=== PATIENT | female | born 1970 | race Caucasian/White ===

== ENCOUNTER 2018-03-11 18:28 | Outpatient (REF) | payer OTHER, SELFPAY ==
[2018-03-13 11:40] LABS: HBs Antibody, Quant 26.1 mIU/mL; Hepatitis B Surface Ab Positive
[2018-03-13 12:38] LABS: Measles IgG Antibody Negative; Mumps Antibody IgG Positive (Negative)
[2018-03-13 12:44] LABS: Varicella IgG Antibody Negative
[2018-03-13 12:46] LABS: Rubella IgG Ab (UVM) Positive
== END 2018-03-11 18:29 ==
LOC: NCHCN 18:28
PROVIDERS: PCP Physician Assistant Medical; Visit Provider Physician Assistant Medical
DX: Z11.59 Encounter for screening for other viral diseases (principal); Z01.84 Encounter for antibody response examination
CPT/HCPCS: 86706; 86787; 86735; 86762; 86765

== ENCOUNTER 2020-03-10 18:43 | Outpatient (REF) | payer OTHER, SELFPAY ==
[2020-03-10 21:30] LABS: Abs Immature Grans 0.02 10^3/uL (0.0-0.06); Absolute Basophil Count 0.02 10^3/uL (0.0-0.2); Absolute Eosinophil Count 0.13 10^3/uL (0.0-0.7); Absolute Lymphocyte Count 2.57 10^3/uL (1.2-3.4); Absolute Monocyte Count 0.52 10^3/uL (0.1-0.8); Absolute Neutrophil Count 4.51 10^3/uL (1.2-6.7); Basophils % 0.3; Eosinophils % 1.7; HCT 37.5 % (36.0-46.0); HGB 12.4 g/dL (11.2-15.7); Immature Grans % 0.3; Lymphocytes % 33.1; MCH 34.5 pg (27.0-33.0); MCHC 33.1 % (32.0-36.0); MCV 104.5 fL (80-95); MPV 10.8 fL (8.0-11.0); Monocytes % 6.7; Neutrophils % 57.9; Nucleated RBC 0 %; Platelet Count 140 10^3/uL (130-400); RBC 3.59 10^6/uL (3.93-5.22); RDW 11.2 % (11.7-14.6); RDW-SD 43.2 fL; WBC 7.77 10^3/uL (4.4-10.8)
[2020-03-10 21:55] LABS: ALT 103 U/L (14-59); AST 96 U/L (15-37); Albumin 4.1 g/dL (3.4-5.0); Alkaline Phosphatase 92 U/L (46-116); Anion Gap 11.2 mmol/L (3-11); BUN 18 mg/dL (7-18); Bilirubin, Total 0.7 mg/dL (0.2-1.0); CO2 25.8 mmol/L (21.0-32.0); CREATININE 0.56 mg/dL (0.55-1.02); Calcium 9.1 mg/dL (8.5-10.1); Chloride 102 mmol/L (98-107); Glucose 92 mg/dL (74-106); LDL CHOLESTEROL 111 mg/dL (<100); Potassium 3.7 mmol/L (3.5-5.1); Sodium 139 mmol/L (136-145); TSH (W/Ref FT4) 1.35 uIU/mL (0.36-3.74); Total Protein 7.1 g/dL (6.4-8.2)
== END 2020-03-10 19:03 ==
LOC: NCHCN 18:43
PROVIDERS: Physician Assistant; PCP Physician Assistant Medical; Visit Provider Nurse Practitioner Family
DX: R03.0 Elevated blood-pressure reading, without diagnosis of hypertension (principal); R94.5 Abnormal results of liver function studies
CPT/HCPCS: 80053; 83721; 84443; 85025

== ENCOUNTER 2022-03-10 18:52 | Outpatient (REF) | payer OTHER, SELFPAY ==
[2022-03-10 19:34] LABS: Abs Immature Grans 0.03 10^3/uL (0.0-0.06); Absolute Basophil Count 0.05 10^3/uL (0.0-0.2); Absolute Eosinophil Count 0.19 10^3/uL (0.0-0.7); Absolute Lymphocyte Count 2.79 10^3/uL (1.2-3.4); Absolute Monocyte Count 0.49 10^3/uL (0.1-0.8); Absolute Neutrophil Count 4.76 10^3/uL (1.2-6.7); Basophils % 0.6; Eosinophils % 2.3; HCT 42.1 % (36.0-46.0); Immature Grans % 0.4; Lymphocytes % 33.6; MCHC 33.3 % (32.0-36.0); MCV 102 fL (80-95); Monocytes % 5.9; Neutrophils % 57.2; Platelet Count 209 10^3/uL (130-400); RBC 4.12 10^6/uL (3.93-5.22); RDW 11.6 % (11.7-14.6); RDW-SD 44.1 fL; WBC 8.31 10^3/uL (4.4-10.8)
[2022-03-10 19:53] LABS: Iron 74 ug/dL (50-170); Total Iron Binding Capacity 448 ug/dL (250-450); Transferrin Sat 17 % (15-50)
[2022-03-10 20:03] LABS: ALT 75 U/L (14-59); AST 79 U/L (15-37); Alkaline Phosphatase 90 U/L (46-116); BUN 15 mg/dL (7-18); Bilirubin, Total 0.1 mg/dL (0.2-1.0); CREATININE 0.5 mg/dL (0.55-1.02); Chloride 104 mmol/L (98-107); Ferritin 123 ng/mL (8-252); Glucose 84 mg/dL (74-106); Potassium 4.1 mmol/L (3.5-5.1); Sodium 141 mmol/L (136-145); TSH (W/Ref FT4) 1.74 uIU/mL (0.36-3.74)
[2022-03-20 12:23] LABS: Testosterone, Free 0.58 ng/dL (<0.13-0.92); Testosterone, Total 40 ng/dL (8-60)
== END 2022-03-10 18:53 | disposition home or self-care (01) ==
LOC: NCHCN 18:52
PROVIDERS: PCP Physician Assistant Medical; Visit Provider Physician Assistant
DX: L65.9 Nonscarring hair loss, unspecified (principal); N95.1 Menopausal and female climacteric states
CPT/HCPCS: 80053; 84402; 84403; 82728; 83540; 83550; 84443; 85025

== ENCOUNTER 2022-06-23 16:25 | Outpatient (REF) | payer OTHER, SELFPAY ==
--- NOTE | 2022-06-23 15:45 | PAPFT_PTH ---
PATIENT: Sultana Nicholas LOC: [facility] WITH [facility]#:[id number] AGE/SX: 51/F ROOM: RE06/23/[address]: Khushboo Arreola : 1970 BED: DIS: 06/23/2022 SPEC #: [id number] RECD: 06/26/22 13:06 STATUS: DARRYL RELeigha #: [id number] FARZAD: 06/23/22 15:[address]: Khushboo Arreola DEPT: [facility] Cytology RECD BY: Toyin Ba ENTERED: 06/26/22 13:07 SP TYPE: PAPFT OTHR DR: Roshni Metcalf Tissues: 1 - CX/ENDOCX FOR PAP SMEARS Procedures: PAP THIN PREP/[facility] Screening HPV DNA PROBE Comments: [id number]
== END 2022-06-23 16:26 | disposition home or self-care (01) ==
LOC: NCHCN 16:25
PROVIDERS: PCP Physician Assistant Medical; Visit Provider Physician Assistant
DX: Z12.4 Encounter for screening for malignant neoplasm of cervix (principal); Z11.51 Encounter for screening for human papillomavirus (HPV)
CPT/HCPCS: 88142; 87624

== ENCOUNTER 2023-06-27 14:52 | Outpatient (REF) | payer OTHER, SELFPAY ==
--- OUTSIDE RECORDS SUMMARY | 2023-06-27 14:54 | XMS_ITS | Continuity of Care Document ---
Author Name Unknown Organization [facility] Address [address] [place] [address] Care Team Providers Care Textile Conservator Name Role Phone Khushboo Arreola Primary Care Physician [phone] Encounter [facility] Date(s): 10/30/22 - 10/30/[address] [address] Discharge Disposition: Home or Self Care Attending Physician: Khushboo Arreola PA-C Admitting Physician: Khushboo Arreola PA-C Referring Physician: Khushboo Arreola PA-C Allergies, Adverse Reactions, Alerts No Known Medication Allergies Immunizations Given and Recorded Vaccine Date Status Refusal Reason influenza virus vaccine, inactivated 05/07/12 Alvin rded influenza virus vaccine, inactivated 04/25/11 Alvin rded Social History Social History Type Response Sex Female Patient Care team information Care Team Personnel Name: Khushboo Arreola PA-C Position: PowerChart View Only Member Role: Primary Care Physician Address: Address: [address] [address] Care Team Related Persons Name: SIMA LOPEZ Address: Home Name: KERON CHENEY Address: Home
--- OUTSIDE RECORDS SUMMARY | 2023-06-27 14:54 | XMS_ITS | Continuity of Care Document ---
Author Name Unknown Organization [facility] Address [address] [place] [address] Care Team Providers Care Retail Financial Analyst Name Role Phone Khushboo Arreola Primary Care Physician [facility]26[facility]22 - 07/26/22 [facility] [address] [place] [address] Discharge Disposition: Home or Self Care Attending [...] Response Sex Female Patient Care team information Personnel Name: Khushboo Arreola PA-C Address: Address: [address] [address]- [place]
--- OUTSIDE RECORDS SUMMARY | 2023-06-27 14:54 | XMS_ITS | Continuity of Care Document ---
Author Name Unknown Organization [facility] Address [address] [place] [address] Care Team Providers Care Personnel Coordinator Name Role Phone Khushboo Arreola Primary Care Physician Encounter [facility] Date(s): 08/16/22 - 08/16/22 [facility] [address] [place] [address] Discharge Disposition: Home or Self Care Attending Physician: Khushboo Arreola PA-C Admitting Physician: Khushboo Arreola PA-C Referring Physician: Khushboo Arreola PA-C Allergies, Adverse Reactions, Alerts No Known Medication Allergies Immunizations Given and Recorded Vaccine Date Status Refusal Reason influenza virus vaccine, inactivated 05/07/12 Alvin rded influenza virus vaccine, inactivated 04/25/11 Alvin rded Social History Social History Type Response Sex Female Pulmonary function study * Hoa Porter D: PERFORM Event Display: Pulmonary Function Studies Authored Date: [id number] Patient Care team information Personnel Name: Khushboo Arreola PA-C Address: Address: [address] [address]- [place]
[2023-06-27 20:37] LABS: Abs Immature Grans 0.02 10^3/uL (0.0-0.06); Absolute Basophil Count 0.04 10^3/uL (0.0-0.2); Absolute Eosinophil Count 0.17 10^3/uL (0.0-0.7); Absolute Lymphocyte Count 2.47 10^3/uL (1.2-3.4); Absolute Monocyte Count 0.38 10^3/uL (0.1-0.8); Absolute Neutrophil Count 4.05 10^3/uL (1.2-6.7); Basophils % 0.6; Eosinophils % 2.4; HCT 36.1 % (36.0-46.0); HGB 12.1 g/dL (11.2-15.7); Immature Grans % 0.3; Lymphocytes % 34.6; MCH 33.3 pg (27.0-33.0); MCHC 33.5 % (32.0-36.0); MCV 99 fL (80-95); MPV 9.9 fL (8.0-11.0); Monocytes % 5.3; Neutrophils % 56.8; Platelet Count 213 10^3/uL (130-400); RBC 3.63 10^6/uL (3.93-5.22); RDW 13.3 % (11.7-14.6); RDW-SD 48.6 fL; WBC 7.13 10^3/uL (4.4-10.8)
[2023-06-27 21:12] LABS: ALT 48 U/L (14-59); AST 52 U/L (15-37); Albumin 3.9 g/dL (3.4-5.0); Alkaline Phosphatase 95 U/L (46-116); Anion Gap 10.6 mmol/L (3-11); BUN 14 mg/dL (7-18); Bilirubin, Total 0.2 mg/dL (0.2-1.0); CO2 29.4 mmol/L (21.0-32.0); CREATININE 0.7 mg/dL (0.55-1.02); Calcium 9.3 mg/dL (8.5-10.1); Chloride 102 mmol/L (98-107); Glucose 86 mg/dL (74-106); Potassium 4.1 mmol/L (3.5-5.1); Sodium 142 mmol/L (136-145); Total Protein 7.7 g/dL (6.4-8.2)
[2023-06-27 22:09] LABS: Folate 6.3 ng/mL (8.6-20.0); Vitamin B12 337 pg/mL (193-986)
== END 2023-06-27 14:53 | disposition home or self-care (01) ==
LOC: NCHCN 14:52
PROVIDERS: PCP Physician Assistant Medical; Visit Provider Physician Assistant
DX: I10 Essential (primary) hypertension (principal); D75.89 Other specified diseases of blood and blood-forming organs
CPT/HCPCS: 80053; 82607; 82746; 85025

== ENCOUNTER 2024-08-14 09:38 | Outpatient (REF) | payer OTHER, SELFPAY ==
--- OUTSIDE RECORDS SUMMARY | 2024-08-14 09:40 | XMS_ITS | Encounter Summary ---
Author Organization [facility] [place] [address] Care Team Providers Care Plant Changer Name Role Phone Khushboo Arreola Primary Care Provider [phone] Encounter Details Date Type Department Care Team (Latest Contact Info) Description 12/17/2023 Travel Social History Tobacco Use Types Packs/Day Years Used Date Smoking Tobacco: Every Day Cigarettes 0.5 42 Smokeless Tobacco: Never Alcohol Use Standard Drinks/Week Comments Yes 6 (1 standard drink = 0.6 oz pur e alcohol) Sex and Gender Information Value Date Recorded Sex Assigned at Not on file Gender Identity Not on file Sexual Orientation Not on file documented as of this encounter Plan of Treatment Not on file documented as of this encounter Visit Diagnoses Not on filedocumented in this encounter Care Teams Plant Changer Relationship Specialty Start Date End Date Khushboo Arreola PA [address] [place] [id number] PCP - General Family Medicine 03/20/22 documented as of this encounter
--- OUTSIDE RECORDS SUMMARY | 2024-08-14 09:40 | XMS_ITS | Encounter Summary ---
Author Organization [facility] [place] [address] Care Team Providers Care Endbander Name Role Phone Khushboo Arreola Primary Care Provider Encounter Details Date Type Department Care Team (Late st Contact Info) Description 10/26/2023 Orders Only [place] [address] Geovanna Espinal APRN [facility] [place] [address] Pre-procedural laboratory examination Social History Tobacco Use Types Packs/Day Years [...] documented as of this encounter Visit Diagnoses Diagnosis Pre-procedural laboratory examination documented in this encounter Care Teams Endbander Relationship Specialty Start Date End Date Khushboo Arreola PA [address] [place] [id number] PCP - General Family Medicine 03/20/22 documented as of this encounter
--- OUTSIDE RECORDS SUMMARY | 2024-08-14 09:40 | XMS_ITS | Encounter Summary ---
[place] [address] Care Team Providers Care School Principal Name Role Phone Khushboo Arreola Primary Care Provider [phone] Encounter Details Date Type Department Care Team (Late st Contact Info) Description 11/08/2023 Telephone [place] [address] Raimundo Joseph Social History Tobacco Use Types Packs/Day Years Used Date Smoking Tobacco: Every Day Cigarettes 0.5 42 Smokeless Tobacco: Never Alcohol Use Standard Drinks/Week Comments Yes 6 (1 standard drink = 0.6 oz pur e alcohol) Sex and Gender Information Value Date Recorded Sex Assigned at Not on file Gender Identity Not on file Sexual Orientation Not on file documented as of this encounter Miscellaneous Notes * Telephone Encounter - Raimundo Joseph - 11/08/2023 2:18 PM EDT Inbound/Outbound: Outbound Spoke to Patient/Left Message: Left message Notes: Outbound call to patient to schedule motility lab testing from referral. Left message askingfor callback to schedule. Return calls can be handled by: [facility] Solar Maintenance Technician documented in this encounter Plan of Treatment Not on file documented as of this encounter Visit Diagnoses Not on filedocumented in this encounter Care Teams School Principal Relationship Specialty Start Date End Date Khushboo Arreola PA [address] [place] [id number] PCP - General Family Medicine 03/20/22 documented as of this encounter
--- OUTSIDE RECORDS SUMMARY | 2024-08-14 09:40 | XMS_ITS | Encounter Summary ---
Author Organization [facility] [place] [address] Care Team Providers Care Collar Turner Name Role Phone Khushboo Arreola Primary Care Provider [phone] Encounter Details Date Type Department Care Team (Latest Contact Info) Description 10/24/2023 Travel Social History Tobacco Use Types Packs/Day [...] on filedocumented in this encounter Care Teams Collar Turner Relationship Specialty Start Date End Date Khushboo Arreola PA [address] [place] [id number] PCP - General Family Medicine 03/20/22 documented as of this encounter
--- OUTSIDE RECORDS SUMMARY | 2024-08-14 09:40 | XMS_ITS | Encounter Summary ---
[place] [address] Care Team Providers Care Concession Stand Attendant Name Role Phone Khushboo Arreola Primary Care Provider [phone] Reason for Visit * Auth/Cert (Routine) Specialty Diagnoses / Procedures Referred By Contac t Referred To Contact Diagnoses Chronic diarrhea Nausea Cyclical vomiting syndrome unrelated to migraine chronic vomiting and chronic diarrhea, previous OSH biopsy with active colitis, please biopsy throughout Procedures PRO UPPER GI ENDOSCOPY, DIAGNOSTIC PRO COLONOSCOPY, DIAGNOSTIC PRO UPPER GI ENDOSCOPY, BIOPSY PRO UP GI ENDOSCOPY, REMV TUMOR, SNARE PRO COLONOSCOPY, BIOPSY PRO COLONOSCOPY, REMV LESN, SNARE PRO ANES, COMBINED UPPER OR LOWER ENDOSCOPY EGD, UPPER GI ENDOSCOPY (WRVU 2.09) COLONOSCOPY, DIAGNOSTIC (WRVU 3.26) Aldair Jon MD [address] [place] [address] [facility] Referral ID Status Reason Start Date Expiration Date Visits Re quested Visits Authorized [id number] 1 1 Encounter Details Date Type Department Care Team (Late st Contact Info) Description 09/13/2023 8:15 AM EST - 09/13/2023 9:30 AM EST Surgery [place] [address] Aldair Jon MD [address] [place] [address] EGD WITH BIOPSY (WRVU 2.39) Social History Tobacco Use Types Packs/Day Years Used Date Smoking Tobacco: Every Day Cigarettes 0.3 42 Smokeless Tobacco: Never Tobacco Cessation:Ready to Q uit: Not Asked; Counseling Given: Not Answered Alcohol Use Standard Drinks/Week Comments Yes 6 (1 standard drink = 0.6 oz pur e alcohol) Sex and Gender Information Value Date Recorded Sex Assigned at Not on file Gender Identity Not on file Sexual Orientation Not on file documented as of this encounter Last Filed Vital Signs Vital Sign Reading Time Taken Comments Blood Pressure 152/92 09/13/2023 7:34 AM EST Pulse 107 09/13/2023 7:34 AM EST Temperature 36.6 ??C (97.8 ??F) 09/13/2023 7:34 AM ES T Respiratory Rate - - Oxygen Saturation 97% 09/13/2023 7:34 AM EST Inhaled Oxygen Concentration - - Weight 58.1 kg (128 lb) 09/13/2023 7:34 AM EST Height 154.9 cm (5' 1) 09/13/2023 7:34 AM EST Body Mass Index 24.19 09/13/2023 7:34 AM EST documented in this encounter Discharge Instructions * Discharge Instructions* Alyssa Mancia RN - 09/13/2023 9:56 AM EST Upper GI Endoscopy: What to Expect at Home Your Recovery You will be able to go home after your doctor or nurse checks to make sure you are not having any problems. You may have to stay overnight if you had treatment during the test. You may have a sore throat fora day or two after the test. This care sheet gives you a general idea about what to expect after the test. How can you care for yourself at home? Activity Rest when you feel tired. You can do your normal activities when it feels okay to do so. Diet Follow your doctor's directions for eating. Unless your doctor has told you not to, drink plenty of fluids. This helps to replace the fluids that were lost during the prep. Do not drink alcohol. Medicines Your doctor will tell you if and when you can restart your medicines. He or she will also give you instructions about taking any new medicines. If you take blood thinners, such as warfarin (Coumadin), clopidogrel (Plavix), or aspirin, be sure to talk to your doctor. He or she will tell you if and when to start taking those medicines again. Make sure that you understand exactly what your doctor wants you to do. If polyps were removed or a biopsy was done during the test, your doctor may tell you not to take aspirin or other anti-inflammatory medicines for a few days. These include ibuprofen (Advil, Motrin) and naproxen (Aleve). If you have a sore throat the day after the procedure, use an zein-jdz-gyviykt spray to numb your throat. Sucking on throat lozenges and gargling with warm salt water may also help relieve your symptoms. Other instructions For your safety, do not drive or operate machinery until the medicine wears off and you can think clearly. Your doctor may tell you not to drive or operate machinery until the day after your test. Do not sign legal documents or make major decisions until the medicine wears off and you can think clearly. The anesthesia can make it hard for you to fully understand what you are agreeing to. Additional Information for Sedation Patients For patients who received sedation: You may have received medications before and/or during your procedure which effects your judgement and reaction time. Do not drive, operate machinery, drink alcoholic beverages or make important decisions for 24 hours. Be careful on stairs as you may be unsteady on your feet. You may eat a regular diet as tolerated. Do not smoke if you are alone. IV site: Slight redness or tenderness is normal, you can use a warm compress if you would like. If tenderness and/or redness increase or if foul drainage occurs, please contact your Doctor. Please call [phone] before 8pm Mon-Fri with problems, questions or concerns. If you call after 8pm or on weekends, call the Hospital at [phone] and ask to speak to the Pricing Intern division toll wire chief and the gear cutting machine operator will contact that person for you. When should you call for help? Call [phone] anytime you think you may need emergency care. For example, call if: You passed out (lost consciousness). You pass maroon or bloody stools. You have trouble breathing. Call your doctor now or seek immediate medical care if: You have pain that does not get better after you take pain medicine. You are sick to your stomach or cannot drink fluids. You have new or worse belly pain. You have blood in your stools. You have a fever. You cannot pass stools or gas. Watch closely for changes in your health, and be sure to contact your doctor if you have any problems. Where can you learn more? [facility] View your After Visit Summary and more online at [email or web address] If you would like to provide feedback about your hospital experience, please call the Office of Patient and Family Relations at . If you have received this After Visit Summary in error, please immediately return it in person to the department, or notify the [facility] Privacy Office by calling toll free at between the hours of 8AM and 5PM to arrange for our retrieval of the documents at no cost to you. Content Version: 12.2 ?? 2438-3326 Treater. Care instructions adapted under license by [facility]. If you have questions about a medical condition or this instruction, always ask your healthcare professional. Treater disclaims any warranty or liability for your use of this information. Colonoscopy: What to Expect at Home Your Recovery Your doctor will talk to you about when you will need your next colonoscopy. Your doctor can help you decide how often you need to be checked. This will depend on the results of your test and your risk for colorectal cancer. After the test, you may be bloated or have gas pains. You may need to pass gas. If a biopsy was done or a polyp was removed, you may have streaks of blood in your stool (feces) for a few days. Problems such as heavy rectal bleeding may not occur until several weeks after the test. This isn't common. But it can happen after polyps are removed. This care sheet gives you a general idea about how long it will take for you to recover. But each person recovers at a different pace. Follow the steps below to get better as quickly as possible. How can you care for yourself at home? Activity Rest when you feel tired. You can do your normal activities when it feels okay to do so. Diet Follow your doctor's directions for eating. Unless your doctor has told you not to, drink plenty of fluids. This helps to replace the fluids that were lost during the colon prep. Do not drink alcohol. Medicines Your doctor will tell you if and when you can restart your medicines. He or she will also give you instructions about taking any new medicines. If you take blood thinners, such as warfarin (Coumadin), clopidogrel (Plavix), or aspirin, be sure to talk to your doctor. He or she will tell you if and when to start taking those medicines again. Make sure that you understand exactly what your doctor wants you to do. If polyps were removed or a biopsy was done during the test, your doctor may tell you not to take aspirin or other anti-inflammatory medicines for a few days. These include ibuprofen (Advil, Motrin) and naproxen (Aleve). Other instructions For your safety, do not drive or operate machinery until the medicine wears off and you can think clearly. Your doctor may tell you not to drive or operate machinery until the day after your test. Do not sign legal documents or make major decisions until the medicine wears off and you can think clearly. The anesthesia can make it hard for you to fully understand what you are agreeing to. Additional Information for Sedation Patients For patients who received sedation: You may have received medications before and/or during your procedure which effects your judgement and reaction time. Do not drive, operate machinery, drink alcoholic beverages or make important decisions for 24 hours. Be careful on stairs as you may be unsteady on your feet. You may eat a regular diet as tolerated. Do not smoke if you are alone. IV site: Slight redness or tenderness is normal, you can use a warm compress if you would like. If tenderness and/or redness increase or if foul drainage occurs, please contact your Doctor. Please call [phone] before 8pm Mon-Fri with problems, questions or concerns. If you call after 8pm or on weekends, call the Hospital at [phone] and ask to speak to the Pricing Intern division toll wire chief and the gear cutting machine operator will contact that person for you. When should you call for help? Call [phone] anytime you think you may need emergency care. For example, call if: You passed out (lost consciousness). You pass maroon or bloody stools. You have trouble breathing. Call your doctor now or seek immediate medical care if: You have pain that does not get better after you take pain medicine. You are sick to your stomach or cannot drink fluids. You have new or worse belly pain. You have blood in your stools. You have a fever. You cannot pass stools or gas. Watch closely for changes in your health, and be sure to contact your doctor if you have any problems. Where can you learn more? [facility] View your After Visit Summary and more online at [email or web address] If you would like to provide feedback about your hospital experience, please call the Office of Patient and Family Relations at . If you have received this After Visit Summary in error, please immediately return it in person to the department, or notify the [facility] Privacy Office by calling toll free at between the hours of 8AM and 5PM to arrange for our retrieval of the documents at no cost to you. Content Version: 12.2 ?? 5820-9895 Treater. Care instructions adapted under license by [facility]. If you have questions about a medical condition or this instruction, always ask your healthcare professional. Treater disclaims any warranty or liability for your use of this information. documented in this encounter Medications at Time of Discharge Medication Sig Dispensed Refills Start Date End Date LISINOPRIL ORAL 0 Refill(s) 07/31/2023 buPROPion XL (Wellbutrin XL) 150 mg XL 24 hr tablet TAKE 1 TABLET BY MOUTH EVERY MORNING TAKE WITH 300 MG TABLET. 03/28/2023 colestipoL (Colestid) 1 gram tablet 07/25/2023 Flovent HFA 110 mcg/actuation HFA Aerosol Inhaler 04/06/2023 pantoprazole EC (Protonix) 40 mg Tablet, Delayed Release (E.C.) TAKE 1 TABLET BY MOUTH EVERY DAY 30 MINUTES BEFORE SUPPER 04/11/2022 calcium polycarbophil (FIBERCON ORAL) Take by mouth daily. documented as of this encounter H&P Notes * Aldair Jon MD - 09/13/2023 7:57 AM EST Gastroenterology and Hepatology Pre-Procedure History and Physical Exam Procedure: EGD / colo Indication: N/V, diarrhea, ?hx of colitis (prior colo in [place]). Recent normal GES, CTA, and Cte. EXAM: HEENT: Airway examined, oropharynx clear Mallampati Score: per anesthesia LUNGS: Clear to auscultation HEART: Regular rate and rhythm, normal S1, S2 ABDOMEN: Normal bowel sounds, soft, non tender, non distended A/P: Proceed with the planned endoscopic procedure. ASA 3 - Patient with moderate systemic disease with functional limitations Sedation Plan: anesthesia Risks and benefits of the procedure explained to the patient. Consent form signed and included in the patient's chart. Aldair Jon MD Advanced Endoscopy Fellow Gastroenterology & Hepatology documented in this encounter Plan of Treatment Not on file documented as of this encounter Procedures Procedure Name Priority Date/Time Associated Diagnosis Comments SPECIMEN TO PATHOLOGY Routine 09/13/2023 9:52 AM EST SPECIMEN TO PATHOLOGY Routine 09/13/2023 9:52 AM EST SPECIMEN TO PATHOLOGY Routine 09/13/2023 9:52 AM EST SPECIMEN TO PATHOLOGY Routine 09/13/2023 9:52 AM EST SPECIMEN TO PATHOLOGY Routine 09/13/2023 9:52 AM EST SPECIMEN TO PATHOLOGY Routine 09/13/2023 9:03 AM EST SPECIMEN TO PATHOLOGY Routine 09/13/2023 9:03 AM EST SPECIMEN TO PATHOLOGY Routine 09/13/2023 9:03 AM EST SPECIMEN TO PATHOLOGY Routine 09/13/2023 9:03 AM EST SPECIMEN TO PATHOLOGY Routine 09/13/2023 9:03 AM EST SURGICAL PATHOLOGY REPORT Routine 09/13/2023 8:56 AM EST UPPER GI ENDOSCOPY Routine 09/13/2023 8: 37 AM EST COLONOSCOPY Routine 09/13/2023 8:37 AM EST Colonoscpy, Flex, W/Dir Submuc Inject ([id number]) 09/13/2023 8:36 AM EST Diarrhea, unspecified type Chronic nausea Cyclic vomiting syndrome Tenesmus Constipation, unspecified constipation type Irritable bowel syndrome with diarrhea Bloating BRBPR (bright red blood per rectum) Colon polyposis Smoking Nausea and vomiting, unspecified vomiting type Early satiety Colonoscopy, Diagnostic ([id number]) 09/13/2023 8:36 AM EST Diarrhea, unspecified type Chronic nausea Cyclic vomiting syndrome [place] Constipation, unspecified constipation type Irritable bowel syndrome with diarrhea Bloating BRBPR (bright red blood per rectum) Colon polyposis Smoking Nausea and vomiting, unspecified vomiting type Early satiety Upper Gi Endoscopy, Biopsy ([id number]) 09/13/2023 8:36 AM EST Diarrhea, unspecified type Chronic nausea Cyclic vomiting syndrome [place] Constipation, unspecified constipation type Irritable bowel syndrome with diarrhea Bloating BRBPR (bright red blood per rectum) Colon polyposis Smoking Nausea and vomiting, unspecified vomiting type Early satiety documented in this encounter Results * Specimen to Pathology (09/13/2023 9:52 AM EST) AP Specimen 09/13/2023 9:52 AM EST 09/13/2023 9:52 AM EST Narrative [facility] - 09/13/2023 9:52 AM EST Specimen requisition ordered. ??Separate Pathology report to follow Aldair Jon MD PATHOLOGY/CYTOLOGY ORDERABLES Performing Organization Address City/State/[facility] [place] [address] * Specimen to Pathology (09/13/2023 9:52 AM EST) AP Specimen 09/13/2023 9:52 AM EST 09/13/2023 9:52 AM EST Narrative [facility] - 09/13/2023 9:52 AM EST Specimen requisition ordered. ??Separate Pathology report to follow Aldair Jon MD PATHOLOGY/CYTOLOGY ORDERABLES [facility] [place] [address] * Specimen to Pathology (09/13/2023 9:52 AM EST) AP Specimen 09/13/2023 9:52 AM EST 09/13/2023 9:52 AM EST Narrative [facility] - 09/13/2023 9:52 AM EST Specimen requisition ordered. ??Separate Pathology report to follow Aldair Jon MD PATHOLOGY/CYTOLOGY ORDERABLES Performing Organization Address City/[facility]/ZIP Co de Phone Number [facility] [place] [address] * Specimen to Pathology (09/13/2023 9:52 AM EST) AP Specimen 09/13/2023 9:52 AM EST 09/13/2023 9:52 AM EST Narrative [facility] - 09/13/2023 9:52 AM EST Specimen requisition ordered. ??Separate Pathology report to follow Aldair Jon MD PATHOLOGY/CYTOLOGY ORDERABLES Performing Organization Address City/[facility] Co de Phone Number [facility] [place] [address] * Specimen to Pathology (09/13/2023 9:52 AM EST) AP Specimen 09/13/2023 9:52 AM EST 09/13/2023 9:52 AM EST Narrative [facility] - 09/13/2023 9:52 AM EST Specimen requisition ordered. ??Separate Pathology report to follow Aldair Jon MD PATHOLOGY/CYTOLOGY ORDERABLES Performing Organization Address City/[facility]/ZIP Co de Phone Number [facility] [place] [address] * Specimen to Pathology (09/13/2023 9:03 AM EST) AP Specimen 09/13/2023 9:03 AM EST 09/13/2023 9:03 AM EST Narrative [facility] - 09/13/2023 9:03 AM EST Specimen requisition ordered. ??Separate Pathology report to follow Aldair Jon MD PATHOLOGY/CYTOLOGY ORDERABLES [facility] [place] [address] * Specimen to Pathology (09/13/2023 9:03 AM EST) AP Specimen 09/13/2023 9:03 AM EST 09/13/2023 9:03 AM EST Narrative [facility] - 09/13/2023 9:03 AM EST Specimen requisition ordered. ??Separate Pathology report to follow Aldair Jon MD PATHOLOGY/[place] [address] * Specimen to Pathology (09/13/2023 9:03 AM EST) AP Specimen 09/13/2023 9:03 AM EST 09/13/2023 9:03 AM EST Narrative [facility] - 09/13/2023 9:03 AM EST Specimen requisition ordered. ??Separate Pathology report to follow Aldair Jon MD PATHOLOGY/CYTOLOGY ORDERABLES Performing Organization Address City/[facility]/ZIP Co de Phone Number [facility] [place] [address] * Specimen to Pathology (09/13/2023 9:03 AM EST) AP Specimen 09/13/2023 9:03 AM EST 09/13/2023 9:03 AM EST Narrative [facility] - 09/13/2023 9:03 AM EST Specimen requisition ordered. ??Separate Pathology report to follow Aldair Jon MD PATHOLOGY/[place] [address] * Specimen to Pathology (09/13/2023 9:03 AM EST) AP Specimen 09/13/2023 9:03 AM EST 09/13/2023 9:03 AM EST Narrative [facility] - 09/13/2023 9:03 AM EST Specimen requisition ordered. ??Separate Pathology report to follow Aldair Jon MD PATHOLOGY/CYTOLOGY ORDERABLES [facility] [place] [address] * Surgical Pathology Report (09/13/2023 8:56 AM EST) Final Diagnosis [id number] ? Location: 4T; EA07; A The signing pathologist has (i) examined the relevant preparation(s) for the specimen(s) and (ii) rendered or confirmed the diagnosis(es). . ?Surgical Pathology DIAGNOSIS A - Duodenum r/o celiac, biopsy (Multiple): - ??Duodenal mucosa within normal limits, including preserved villous architecture. B - Duodenal bulb polypoid lesion, biopsy (Multiple): - ??Duodenal mucosa with foveolar metaplasia and Belkis's gland hyperplasia consistent with peptic-type duodenitis. C - Gastric r/o H.pylori, biopsy (Multiple): - ??Gastric antral and fundic gland mucosa with nonspecific reactive gastropathy. - H. pylori organisms are not seen. D - Distal esophagus r/o EoE, biopsy (Multiple): - ??Esophageal squamous mucosa with acute (neutrophilic) and ?? chronic ??inflammation, and fibrinopurulent ??material ??consistent with ulceration. - ??Squamocolumnar junctional mucosa (fundic-type) with mild chronic inflammation. - There is no evidence of intestinal metaplasia. E - Mid esophagus r/o EoE, biopsy (Multiple): - ??Esophageal squamous mucosa, within normal limits. F - Polyp CE, excision: - Colonic mucosa with prominent lymphoid follicles. - ??Multiple levels examined. G - Random colon r/o microscopic colitis, biopsy (Multiple): - Colonic mucosa with patchy mild architectural disarray, ?consistent ??with a resolving colitis. H - Polyp AC, excision: - ??Fragments of tubular adenoma. I - Polyp HF 12 mm, excision (Multiple): - ??Fragments of tubular adenoma. J - Polyp HF 15 mm, excision (Multiple): - ??Fragments of tubular adenoma. CR-PX Electronically signed by: ?William LONDONO PhD, Ashley Verified: ??09/25/2023 15:03 ??Pathologist Performed at: ??[facility] Dept. of Pathology, [place] [address] Flexographic Press Operator: Milton Victoria MD, AP, ??CLIA Certificate: [id number] ADDITIONAL STUDIES Special stains are performed. ?? Block ? Stain ?Result ( Positive / Negative ) ??D1 ?GMS ? Negative SPECIMEN(S) SUBMITTED A - duodenum r/o celiac, biopsy (Multiple) . SPECIMEN(S) SUBMITTED B - duodenal bulb polypoid lesion, biopsy (Multiple) C - gastric r/o H.pylori, biopsy (Multiple) D - distal esophagus r/o EoE, biopsy (Multiple) E - mid esophagus r/o EoE, biopsy (Multiple) F - polyp CE, excision (1) G - random colon r/o microscopic colitis, biopsy (Multiple) H - polyp AC, excision (1) I - polyp HF 12 mm, excision (Multiple) J - polyp HF 15 mm, excision (Multiple) CLINICAL INFORMATION EGD N/V, diarrhea,? ??History of colitis (prior [place] and [place]). ??Recent normal GES, CTA and Cte. SPECIMEN PROCESSING A - Labeled/Fixative: Duodenum rule out celiac, formalin. Quantity/Size: Four, 0.2-0.5 cm greatest dimension. Tissue Description: Soft, norwood-pink tissues. Sections/Processi ng: Submitted in toto ??in 1 cassette labeled A1. B - Labeled/Fixative: Duodenal bulb polypoid lesion, formalin. Quantity/Size: Single, 0.6 cm greatest dimension. Tissue Description: Soft, norwood-pink tissue. Sections/Processi ng: Submitted in toto ??in 1 cassette labeled B1. C - Labeled/Fixative: Gastric rule out H. pylori, formalin. Quantity/Size: Five, 0.3-0.6 cm in greatest dimension. Tissue Description: Soft, norwood-pink tissues. Sections/Processi ng: Submitted in toto ??in 1 cassette labeled C1. D - Labeled/Fixative: Distal esophagus rule out EOE, formalin. Quantity/Size: Five, 0.3-0.6 cm greatest dimension. Tissue Description: Soft, norwood-pink tissues. Sections/Processi ng: Submitted in toto ??in 1 cassette labeled D1. E - Labeled/Fixative: Mid esophagus rule out EOE, formalin. Quantity/Size: Four, 0.3-0.8 cm greatest dimension. Tissue Description: Soft, pale-norwood tissues. Sections/Processi ng: Submitted in toto ??in 1 cassette labeled E1. F - Labeled/Fixative: Polyp CE, formalin. Quantity/Size: Three, 0.4-0.7 cm greatest dimension. Tissue Description: Soft, norwood-pink tissues. Sections/Processi ng: Submitted in toto ??in 1 cassette labeled F1. G - Labeled/Fixative: Random colon rule out microscopic colitis, formalin. Quantity/Size: Five, 0.4-0.8 cm greatest dimension. Tissue Description: Soft, norwood-pink tissues. Sections/Processi ng: . SPECIMEN PROCESSING Submitted in toto ??in 1 cassette labeled G1. H - Labeled/Fixative: Polyp AC, formalin. Quantity/Size: Three, 0.4-0.6 cm greatest dimension. Tissue Description: Soft, norwood-pink tissues. Sections/Processi ng: Submitted in toto ??in 1 cassette labeled H1. I - Labeled/Fixative: Polyp HF 12 mm, formalin. Quantity/Size: Seven, 0.3-0.5 cm greatest dimension. Tissue Description: Soft, norwood-pink tissues. Sections/Processi ng: Submitted in toto ??in 1 cassette labeled I1. J - Labeled/Fixative: Polyp HF 15 mm, formalin. Quantity/Size: Fragments, fragments 1.0 cm in greatest dimension with a 0.6 x 0.5 x 0.2 cm aggregate. Tissue Description: Soft, norwood-pink tissues. Sections/Processi ng: Submitted in toto ??in 4 cassettes as follows: ?J1: ??Largest portion of mucosa, inked and bisected. ?J2-J3: ??Fragments of mucosa, 5 per cassette ?J4: ??Remaining fragments ??krd 09/25/2023 3:03 PM EST [facility] GI Biopsy 09/13/2023 8:56 AM EST 09/13/2023 8:56 AM EST GI Biopsy 09/13/2023 8:56 AM EST 09/13/2023 8:56 AM EST GI Biopsy 09/13/2023 8:56 AM EST 09/13/2023 8:56 AM EST GI Biopsy 09/13/2023 8:56 AM EST 09/13/2023 8:56 AM EST GI Biopsy 09/13/2023 8:56 AM EST 09/13/2023 8:56 AM EST GI Biopsy 09/13/2023 8:56 AM EST 09/13/2023 8:56 AM EST GI Biopsy 09/13/2023 8:56 AM EST 09/13/2023 8:56 AM EST GI Biopsy 09/13/2023 8:56 AM EST 09/13/2023 8:56 AM EST GI Biopsy 09/13/2023 8:56 AM EST 09/13/2023 8:56 AM EST GI Biopsy 09/13/2023 8:56 AM EST 09/13/2023 8:56 AM EST Aldair Jon MD PATHOLOGY/CYTOLOGY ORDERABLES Performing Organization Address [facility] Co de Phone Number [facility] [place] [address] [facility] [place] [address] * UPPER GI ENDOSCOPY (09/13/2023 8:37 AM EST) UPPER GI ENDOSCOPY [facility] Endoscopy Procedure Date: 09/13/2023 8:37 AM ? Patient Name: Sultana Nicholas ? Date of : 1970 ? Age: 52 ? Order #: [id number] ? Instrument Name: [id number] ? Procedure: ? Upper GI endoscopy Indications: ? Dyspepsia, Nausea with vomiting Providers: ? Case Martin ? BEATA Oliver, Bridgett Gilmore MD: ?Carina Ward Medicines: ? Monitored Anesthesia Care Complications: ? No immediate complications. Procedure: ? Pre-Anesthesia Assessment: ? - Prior to the procedure, a History ? and Physical was performed, and ? patient medications, allergies and ? sensitivities were reviewed. The ? patient's tolerance of previous ? anesthesia was reviewed. ? - The risks and benefits of the ? procedure and the sedation options ? and risks were discussed with the ? patient. All questions were ? answered and informed consent was ? obtained. ? - Patient identification and ? proposed procedure were verified ? prior to the procedure by the ? physician, the nurse, the ? leather fitter and the master sonar technician. The ? procedure was verified in the ? pre-procedure area in the endoscopy ? suite. ? - Pre-procedure physical ? examination revealed no ? contraindications to sedation. ? - ASA Grade Assessment: III - A ? patient with severe systemic ? disease. ? - After reviewing the risks and ? benefits, the patient was deemed in ? satisfactory condition to undergo ? the procedure. ? - Monitored anesthesia care under ? the supervision of a PLANT PATHOLOGIST was ? determined to be medically ? necessary for this procedure based ? on severe comorbidity (greater than ? ASA Grade II) and patient's history ? of problems with anesthesia. ? The procedure, indications, ? benefits, risks and alternatives ? were explained to the patient. ? Specifically discussed were ? potential complications including, ? but not limited to, bleeding, ? perforation, infection, missing a ? cancer, and adverse medication ? reactions. The Endoscope was ? introduced through the mouth, and ? advanced to the third part of ? duodenum The upper GI endoscopy was ? accomplished without difficulty. ? The patient tolerated the procedure ? well. ? Findings: ? The Z-line was regular and was found 35 cm from the ? incisors. ? A 2 cm hiatal hernia was present. ? A widely patent Schatzki ring was found at the ? gastroesophageal junction. ? The esophagus was otherwise normal. Biopsies were ? obtained from the proximal and distal esophagus with ? cold forceps for histology to rule out eosinophilic ? esophagitis. ? The stomach was normal. Biopsies were taken with a ? cold forceps for Helicobacter pylori testing. ? A single 3 mm sessile polyp was found in the duodenal ? bulb. Biopsies were taken with a cold forceps for ? histology. ? The duodenum was otherwise normal. Biopsies for ? histology were taken with a cold forceps for ? evaluation of celiac disease. ? Moderate Sedation: ? Not applicable - See Anesthesia documentation Impression: ?- Small hiatal hernia. ? - Widely patent Schatzki ring. ? - Normal esophagus biopsied to rule ? out EoE. ? - Normal stomach biopsied for H ? pylori. ? - A single diminutive duodenal ? polypoid lesion. Biopsied. ? - Normal duodenum biopsied for ? celiac. Recommendation: ?- Await pathology results. ? - Proceed to colonoscopy. ? Attending Participation: ? I personally performed the entire procedure. ? Aldair Jon, 09/13/2023 10:08:18 AM Number of Addenda: 0 Note Initiated On: 09/13/2023 8:37 AM PROVATION 09/13/2023 8:37 AM EST Khushboo VINES GENERAL SURGICAL ORD ERABLES PROVATION * COLONOSCOPY (09/13/2023 8:37 AM EST) COLONOSCOPY [facility] Endoscopy Procedure Date: 09/13/2023 8:37 AM ? Patient Name: Sultana Nicholas ? Date of : 1970 ? Age: 52 ? Order #: [id number] ? Instrument Name: [id number] ? Procedure: ? Colonoscopy Indications: ? Diarrhea, question of colitis on ? last exam. Recent normal fecal ? calprotectin. Normal CT ? enterography. Providers: ? Case Martin ? BEATA Oliver, Bridgett Tariq Referring MD: ?Khushboo Woodruff, Khushboo Arreola, ? Carinarafa Negron Medicines: ? Monitored Anesthesia Care Complications: ? No immediate complications. Procedure: ? Pre-Anesthesia Assessment: ? - Prior to the procedure, a History ? and Physical was performed, and ? patient medications, allergies and ? sensitivities were reviewed. The ? patient's tolerance of previous ? anesthesia was reviewed. ? - The risks and benefits of the ? procedure and the sedation options ? and risks were discussed with the ? patient. All questions were ? answered and informed consent was ? obtained. ? - Patient identification and ? proposed procedure were verified ? prior to the procedure by the ? physician, the nurse, the ? leather fitter and the master sonar technician. The ? procedure was verified in the ? pre-procedure area in the endoscopy ? suite. ? - Pre-procedure physical ? examination revealed no ? contraindications to sedation. ? - ASA Grade Assessment: III - A ? patient with severe systemic ? disease. ? - After reviewing the risks and ? benefits, the patient was deemed in ? satisfactory condition to undergo ? the procedure. ? - Monitored anesthesia care under ? the supervision of a PLANT PATHOLOGIST was ? determined to be medically ? necessary for this procedure based ? on severe comorbidity (greater than ? ASA Grade II) and patient's history ? of problems with anesthesia. ? The procedure, indications, ? benefits, risks and alternatives ? were explained to the patient. ? Specifically discussed were ? potential complications including, ? but not limited to, bleeding, ? perforation, infection, missing a ? cancer, and adverse medication ? reactions. The patient was placed ? in the left lateral decubitus ? position, and a digital rectal exam ? was performed. The Colonoscope was ? inserted in the anus and under ? direct visualization, advanced to ? the terminal ileum. Careful ? inspection was made as the ? colonoscope was withdrawn. The ? colonoscopy was performed without ? difficulty. The patient tolerated ? the procedure well. The quality of ? the bowel preparation was evaluated ? using the BBPS (Pledger Bowel ? Preparation Scale) with scores of: ? Right Colon = 3 (entire mucosa seen ? well with no residual staining, ? small fragments of stool or opaque ? liquid), Transverse Colon = 2 ? (minor amount of residual staining, ? small fragments of stool and/or ? opaque liquid, but mucosa seen ? well) and Left Colon = 2 (minor ? amount of residual staining, small ? fragments of stool and/or opaque ? liquid, but mucosa seen well). The ? total BBPS score equals 7. The ? quality of the bowel preparation ? was good. Scope withdrawal time was ? 35 minutes. ? Findings: ? The terminal ileum appeared normal. ? The colon (entire examined portion) appeared normal. ? Biopsies for histology were taken with a cold forceps ? for evaluation of microscopic colitis. ? Two Guerda classification IIa (superficial, elevated) ? polyps were found in the cecum. The polyps were 2 to ? 3 mm in size. These polyps were removed with a cold ? snare. Resection and retrieval were complete. ? A 3 mm polyp was found in the ascending colon. The ? polyp was Guerda classification IIa (superficial, ? elevated). The polyp was removed with a cold snare. ? Resection and retrieval were complete. ? A 12 mm polyp was found in the hepatic flexure. The ? polyp was Guerda classification IIa (superficial, ? elevated). The polyp was first injected with Eleview ? lifting agent. The polyp borders were delinated using ? high definition white light. The polyp was then ? resected using a cold snare in a piecemeal fashion. ? Resection and retrieval were complete. ? An 11 mm polyp was found in the hepatic flexure. The ? polyp was Guerda classification IIa (superficial, ? elevated). The polyp was first injected with Eleview ? lifting agent. The polyp borders were delinated using ? high definition white light. The polyp was then ? resected using a cold snare in a piecemeal fashion. A ? few small areas of polyp were unable to be resected ? using the snare. These were removed using a cold ? forceps. Resection and retrieval were complete. ? The exam was otherwise without abnormality on direct ? and retroflexion views. ? Moderate Sedation: ? Not applicable - See Anesthesia documentation Impression: ?- No overt ileitis or colitis. ? Non-targeted colon biopsies ? obtained to rule out microscopic ? colitis. ? - Multiple polyps in the right ? colon. Two larger lesions resected ? via piecemeal cold EMR. Three ? smaller lesions resected via ? en-bloc cold snare resection. Recommendation: ?- Patient has a contact number ? available for emergencies. The ? signs and symptoms of potential ? delayed complications were ? discussed with the patient. Return ? to normal activities tomorrow. ? Written discharge instructions were ? provided to the patient. ? - Await biopsy and polyp pathology ? results. ? - Repeat colonoscopy in 3 years ? under anesthesia for surveillance. ? Attending Participation: ? I personally performed the entire procedure. ? Aldair Jon, 09/13/2023 10:06:37 AM Number of Addenda: 0 Note Initiated On: 09/13/2023 8:37 AM PROVATION 09/13/2023 8:37 AM EST Khushboo VINES GENERAL SURGICAL ORD ERABLES PROVATION documented in this encounter Visit Diagnoses Diagnosis Diarrhea, unspecified type Chronic nausea Nausea alone Cyclic vomiting syndrome Persistent vomiting Tenesmus Other symptoms involving digestive system Constipation, unspecified constipation type Irritable bowel syndrome with diarrhea Irritable bowel syndrome Bloating Flatulence, eructation, and gas pain BRBPR (bright red blood per rectum) Hemorrhage of rectum and anus Colon polyposis Benign neoplasm of colon Smoking Tobacco use disorder Nausea and vomiting, unspecified vomiting type Early satiety documented in this encounter Administered Medications Inactive Administered Medications - up to 3 most recent administrations Medication Order MAR Action Action Date Dose Rate Site ipratropium-albuteroL (Duoneb) 0.5 mg-3 mg(2.5 mg base)/3 mL nebulizer solution 3 mL 3 mL, Nebulization, ONCE, 1 dose, On Rox 09/13/23 at 0815, Inhale via small volume nebulizer, Day of Surgery (Day of Procedure), Routine Given 09/13/2023 8:07 AM EST 3 mLs lactated ringers infusion 100 mL/hr, Intravenous, CONTINUOUS, Starting on Rox 09/13/23 at 0800, Until Rox 09/13/23 at 1032, Endoscopy (Day of Procedure) Restarted 09/13/2023 8:36 AM EST New Bag 09/13/2023 7:49 AM EST 100 mL/hr 100 mL/hr documented in this encounter Active and Recently Administered Medications Times are shown in EST. Scheduled Medication Order 09/11/2023 09/12/2023 09/13/2023 ipratropium-albuteroL (Duoneb) 0.5 mg-3 mg(2.5 mg base)/3 mL nebulizer solution 3 mL (COMPLETED) 3 mL, Nebulization, ONCE, 1 dose, On Rox 09/13/23 at 0815, Inhale via small volume nebulizer, Day of Surgery (Day of Procedure), Routine 0807 (Given - Provid er: Rose Andre RN) Continuous Medication Order 09/11/2023 09/12/2023 09/13/2023 lactated ringers infusion (CANCELED) 100 mL/hr, Intravenous, CONTINUOUS, Starting on Rox 09/13/23 at 0800, Until Rox 09/13/23 at 1032, Endoscopy (Day of Procedure) 0749 (New Bag - Prov ider: Rose Andre RN)0835 (Paused - Provider: Onofre Ren CRNA - Comment: Switch to gravity)0836 (Restarted - Provider: Onofre Ren CRNA)0950 (Anesthesia Volume Adjustment - Provider: Onofre Ren CRNA) documented in this encounter Care Teams Concession Stand Attendant Relationship Specialty Start Date End Date Khushboo Arreola PA [address] [place] [id number] PCP - General Family Medicine 03/20/22 documented as of this encounter
--- OUTSIDE RECORDS SUMMARY | 2024-08-14 09:40 | XMS_ITS | Encounter Summary ---
[place] [address] Care Team Providers Care Foot Miter Operator Name Role Phone Khushboo Arreola Primary Care Provider Encounter Details Date Type Department Care Team (Late st Contact Info) Description 10/25/2023 Notes [place] [id number] Juanita Grande RN Social History Tobacco Use Types Packs/Day Years Used Date Smoking Tobacco: Every Day Cigarettes 0.5 42 Smokeless Tobacco: Never Alcohol Use Standard Drinks/Week Comments Yes 6 (1 standard drink = 0.6 oz pur e alcohol) Sex and Gender Information Value Date Recorded Sex Assigned at Not on file Gender Identity Not on file Sexual Orientation Not on file documented as of this encounter Progress Notes * Juanita Grande RN - 10/25/2023 11:28 AM EDT MRI brain pre-cert ([facility]): Service Order: [id number] Initiated Date: 10/25/2023 Case Activity: Submission in Progress Case Status: Pending * Juanita Grande RN - 10/25/2023 11:28 AM EDT PA approval forwarded to [facility] rec for scanning, and to [facility] radiology. documented in this encounter Plan of Treatment Not on file documented as of this encounter Visit Diagnoses Not on filedocumented in this encounter Care Teams Foot Miter Operator Relationship Specialty Start Date End Date Khushboo Arreola PA [address] [place] [id number] PCP - General Family Medicine 03/20/22 documented as of this encounter
--- OUTSIDE RECORDS SUMMARY | 2024-08-14 09:40 | XMS_ITS | Encounter Summary ---
[place] [address] Care Team Providers Care Breast Surgeon Name Role Phone Khushboo Arreola Primary Care Provider [phone] Reason for Visit * Auth/Cert (Routine) Specialty [...] 3.26) Aldair Jon MD [address] [place] [address] [facility] Referral ID Status Reason Start Date Expiration Date Visits Re quested Visits Authorized [id number] 1 1 Encounter Details Date Type Department Care Team (Latest Contact Info) Description 09/13/2023 7:10 AM EST - 09/13/2023 10:33 AM EST Hospital [place] [address] Aldair Jon MD [address] [place] [address] Discharge Disposition: Home Social History Tobacco Use Types Packs/Day Years [...] Sign Reading Time Taken Comments Blood Pressure 124/81 09/13/2023 10:10 AM EST Pulse 107 09/13/2023 7:34 AM EST Temperature 36.6 ??C (97.8 ??F) 09/13/2023 7:34 AM ES T Respiratory Rate 17 09/13/2023 10:10 AM EST Oxygen Saturation 99% 09/13/2023 10:10 AM EST Inhaled Oxygen Concentration - - [...] the day after the procedure, use an [id number]-lomrzdc spray to numb your throat. Sucking on [...] occurs, please contact your Doctor. Please call [phone] before 8pm Mon-Fri with problems, questions or concerns. If you call after 8pm or on weekends, call the Hospital at [phone] and ask to speak to the Farmworker Poultry surveyor oil well directional and the flavoring machine operator will contact that person for you. When should you call for help? Call [phone] anytime you think you may need emergency [...] any problems. Where can you learn more? [facility] View your After Visit Summary and more online at [email or web address] If you would like to provide feedback about your hospital experience, please call the Office of Patient and Family Relations at . If you have received this After Visit Summary in error, please immediately return it in person to the department, or notify the [facility] Privacy Office by calling toll free at between the hours of 8AM and 5PM to arrange for our retrieval of the documents at no cost to you. Content Version: 12.2 ?? 8107-3650 Compliance 11. Care instructions adapted under license by [facility]. If you have questions about a medical condition or this instruction, always ask your healthcare professional. Compliance 11 disclaims any warranty or liability for your [...] occurs, please contact your Doctor. Please call [phone] before 8pm Mon-Fri with problems, questions or concerns. If you call after 8pm or on weekends, call the Hospital at [phone] and ask to speak to the Farmworker Poultry surveyor oil well directional and the flavoring machine operator will contact that person for you. When should you call for help? Call [phone] anytime you think you may need emergency [...] any problems. Where can you learn more? [facility] View your After Visit Summary and more online at [email or web address] If you would like to provide feedback about your hospital experience, please call the Office of Patient and Family Relations at . If you have received this After Visit Summary in error, please immediately return it in person to the department, or notify the [facility] Privacy Office by calling toll free at between the hours of 8AM and 5PM to arrange for our retrieval of the documents at no cost to you. Content Version: 12.2 ?? 2302-6784 Compliance 11. Care instructions adapted under license by [facility]. If you have questions about a medical condition or this instruction, always ask your healthcare professional. Compliance 11 disclaims any warranty or liability for your [...] diarrhea, ?hx of colitis (prior colo in [place]). Recent normal GES, CTA, and Cte. EXAM: [...] AM EST Colonoscpy, Flex, W/Dir Submuc Inject (71410) 09/13/2023 8:36 AM EST Diarrhea, unspecified type Chronic nausea Cyclic vomiting syndrome Tenesmus Constipation, unspecified constipation type Irritable bowel syndrome with diarrhea Bloating BRBPR (bright red blood per rectum) Colon polyposis Smoking Nausea and vomiting, unspecified vomiting type Early satiety Colonoscopy, Diagnostic ([id number]) 09/13/2023 8:36 AM EST Diarrhea, unspecified type Chronic nausea Cyclic vomiting syndrome Tenesmus Constipation, unspecified constipation type Irritable bowel syndrome with diarrhea Bloating BRBPR (bright red blood per rectum) Colon polyposis Smoking Nausea and vomiting, unspecified vomiting type Early satiety Upper Gi Endoscopy, Biopsy ([id number]) 09/13/2023 8:36 AM EST Diarrhea, unspecified type [...] AM EST 09/13/2023 9:52 AM EST Narrative [facility] - 09/13/2023 9:52 AM EST Specimen requisition ordered. ??Separate Pathology report to follow Aldair Jon MD PATHOLOGY/CYTOLOGY ORDERABLES Performing Organization Address City/State/[facility] [place] [place] [address] * Specimen to Pathology (09/13/2023 9:52 AM EST) AP Specimen 09/13/2023 9:52 AM EST 09/13/2023 9:52 AM EST Narrative [facility] - 09/13/2023 9:52 AM EST Specimen requisition ordered. ??Separate Pathology report to follow Aldair Jon MD PATHOLOGY/CYTOLOGY ORDERABLES [facility] [place] [address] * Specimen to Pathology (09/13/2023 9:52 AM EST) AP Specimen 09/13/2023 9:52 AM EST 09/13/2023 9:52 AM EST Narrative [facility] - 09/13/2023 9:52 AM EST Specimen requisition ordered. ??Separate Pathology report to follow Aldair Jon MD PATHOLOGY/CYTOLOGY ORDERABLES Performing Organization Address City/[facility]/[place] [address] * Specimen to Pathology (09/13/2023 9:52 AM EST) AP Specimen 09/13/2023 9:52 AM EST 09/13/2023 9:52 AM EST Narrative [facility] - 09/13/2023 9:52 AM EST Specimen requisition ordered. ??Separate Pathology report to follow Aldair Jon MD PATHOLOGY/CYTOLOGY ORDERABLES Performing Organization Address City/[facility]/ZIP Co de Phone Number [facility] [place] [address] * Specimen to Pathology (09/13/2023 9:52 AM EST) AP Specimen 09/13/2023 9:52 AM EST 09/13/2023 9:52 AM EST Narrative [facility] - 09/13/2023 9:52 AM EST Specimen requisition ordered. ??Separate Pathology report to follow Aldair Jon MD PATHOLOGY/CYTOLOGY ORDERABLES Performing Organization Address City/[facility]/[place] [address] * Specimen to Pathology (09/13/2023 9:03 AM EST) AP Specimen 09/13/2023 9:03 AM EST 09/13/2023 9:03 AM EST Narrative [facility] - 09/13/2023 9:03 AM EST Specimen requisition ordered. ??Separate Pathology report to follow Aldair Jon MD PATHOLOGY/CYTOLOGY ORDERABLES [facility] [place] [address] * Specimen to Pathology (09/13/2023 9:03 AM EST) AP Specimen 09/13/2023 9:03 AM EST 09/13/2023 9:03 AM EST Narrative [facility] - 09/13/2023 9:03 AM EST Specimen requisition ordered. ??Separate Pathology report to follow Aldair Jon MD PATHOLOGY/CYTOLOGY ORDERABLES [facility] [place] [address] * Specimen to Pathology (09/13/2023 9:03 AM EST) AP Specimen 09/13/2023 9:03 AM EST 09/13/2023 9:03 AM EST Narrative [facility] - 09/13/2023 9:03 AM EST Specimen requisition ordered. ??Separate Pathology report to follow Aldair Jon MD PATHOLOGY/CYTOLOGY ORDERABLES Performing Organization Address City/[facility]/ZIP Co de Phone Number [facility] [place] [address] * Specimen to Pathology (09/13/2023 9:03 AM EST) AP Specimen 09/13/2023 9:03 AM EST 09/13/2023 9:03 AM EST Narrative [facility] - 09/13/2023 9:03 AM EST Specimen requisition ordered. ??Separate Pathology report to follow Aldair Jon MD PATHOLOGY/CYTOLOGY ORDERABLES [facility] [place] [address] * Specimen to Pathology (09/13/2023 9:03 AM EST) AP Specimen 09/13/2023 9:03 AM EST 09/13/2023 9:03 AM EST Narrative [facility] - 09/13/2023 9:03 AM EST Specimen requisition ordered. ??Separate Pathology report to follow Aldair Jon MD PATHOLOGY/CYTOLOGY ORDERABLES [facility] [place] [address] * Surgical Pathology Report (09/13/2023 8:56 AM EST) Final Diagnosis [id number] ? Location: 4T; EA07; A The signing [...] Ashley Verified: ??09/25/2023 15:03 ??Pathologist Performed at: ??-[facility] Dept. of Pathology, [place] [address] Supervisor Fleshing: Milton Victoria MD, FCAP, ??CLIA Certificate: [id number] ADDITIONAL STUDIES Special stains are performed. ?? [...] EGD N/V, diarrhea,? ??History of colitis (prior [place] and [place]). ??Recent normal GES, CTA and Cte. SPECIMEN [...] ??Remaining fragments ??krd 09/25/2023 3:03 PM EST [facility] GI Biopsy 09/13/2023 8:56 AM [...] Jon MD PATHOLOGY/CYTOLOGY ORDERABLES Performing Organization Address City/State/[facility] Co de Phone Number [facility] [place] [address] [facility] [place] [phone] * UPPER GI ENDOSCOPY (09/13/2023 8:37 AM EST) UPPER GI ENDOSCOPY [facility] Endoscopy Procedure Date: 09/13/2023 8:37 AM ? Patient Name: Sultana Nicholas ? Date of : 1970 ? Age: 52 ? Order #: [id number] ? Instrument Name: [id number]- [id number] ? Procedure: ? Upper GI endoscopy Indications: [...] the ? physician, the nurse, the ? dental officer and the customer support technician. The ? procedure was verified in [...] care under ? the supervision of a SUPERVISOR ASSEMBLY was ? determined to be medically ? [...] * COLONOSCOPY (09/13/2023 8:37 AM EST) COLONOSCOPY [facility] Endoscopy Procedure Date: 09/13/2023 8:37 AM ? Patient Name: Sultana Nicholas ? Date of : 1970 ? Age: 52 ? Order #: [id number] ? Instrument Name: [id number]- [id number] ? Procedure: ? Colonoscopy Indications: ? Diarrhea, [...] the ? physician, the nurse, the ? dental officer and the customer support technician. The ? procedure was verified in [...] care under ? the supervision of a SUPERVISOR ASSEMBLY was ? determined to be medically ? [...] preparation was evaluated ? using the BBPS (WooMe Bowel ? Preparation Scale) with scores of: [...] PROVATION documented in this encounter Visit Diagnoses Not on filedocumented in this encounter Administered Medications Inactive Administered [...] CRNA) documented in this encounter Care Teams Breast Surgeon Relationship Specialty Start Date End Date Khushboo Arreola PA [address] [place] [id number] PCP - General Family Medicine 03/20/22 documented as of this encounter
--- OUTSIDE RECORDS SUMMARY | 2024-08-14 09:40 | XMS_ITS | Encounter Summary ---
Author Organization [facility] [place] [address] Care Team Providers Care Boring Machine Set Up Operator Jig Name Role Phone Khushboo Arreola Primary Care Provider [phone] Encounter Details Date Type Department Care Team (Late st Contact Info) Description 12/19/2023 10:00 AM EDT Clinical [place] [address] Heart burn Social History Tobacco Use Types Packs/Day Years [...] as of this encounter Progress Notes * Ellen Goldman RN - 12/19/2023 10:00 AM EDT The patient returns today for removal of the 24-hour Impedance catheter, which was placed 12/18/23 in the [facility]. The catheter was removed without complication and the study is uploaded 12/19/23.The patient is aware that study results will be made available to their referring provider and their PCP. All questions were answered to the patient's satisfaction. documented in this encounter Plan of Treatment Not on file documented as of this encounter Visit Diagnoses Diagnosis Heart burn Heartburn documented in this encounter Care Teams Boring Machine Set Up Operator Jig Relationship Specialty Start Date End Date Khushboo Arreola PA [address] [place] [id number] PCP - General Family Medicine 03/20/22 documented as of this encounter
--- OUTSIDE RECORDS SUMMARY | 2024-08-14 09:40 | XMS_ITS | Continuity of Care Document ---
Author Organization [facility] Address [address] [place] [address] Care Team Providers Care Operating Room Nurse Name Role Phone Khushboo Arreola Primary Care Physician Encounter [facility] Date(s): 11/26/23 - 11/26/[address] [address] Discharge Disposition: Home or Self Care Attending Physician: Khushboo Arreola PA-C Admitting Physician: Khushboo Arreola PA-C Referring Physician: Khushboo Arreola PA-C Allergies, Adverse Reactions, Alerts No Known Medication Allergies Immunizations Given and Recorded Vaccine Date Status Refusal Reason influenza virus vaccine, inactivated 05/07/12 Alvin rded influenza virus vaccine, inactivated 04/25/11 Alvin rded Medications lisinopril 0 Refill(s) Start Date: 07/31/23 Status: Ordered pantoprazole 0 Refill(s) Start Date: 07/31/23 Status: Ordered Procedures Procedure Date Related Diagnosis Body Site Status Colonoscopy 05/26/21 Completed Social History Social History Type Response Tobacco Current everyday tob acco user Tobacco Use:. 1/2 ppd per day. Sex Female Patient Care team information Care Team Personnel Name: Khushboo Arreola PA-C Position: PowerChart View Only Member Role: Informed Provider Address: Address: [facility] [address], [place] [address] Care Team Related Persons Name: SIMA LOPEZ Name: KERON CHENEY
--- OUTSIDE RECORDS SUMMARY | 2024-08-14 09:40 | XMS_ITS | Encounter Summary ---
Author Organization [place] [address] Care Team Providers Care Aircraft Structural Design Engineer Name Role Phone Khushboo Arreola Primary Care Provider [phone] Encounter Details Date Type Department Care Team (Latest Contact Info) Description 05/31/2023 Travel Social History Tobacco Use Types Packs/Day Years Used Date Smoking Tobacco: Every Day Cigarettes Smokeless Tobacco: Never Sex and Gender Information Value Date Recorded Sex Assigned at Not on file Gender Identity Not on file Sexual Orientation Not on file documented as of this encounter Plan of Treatment Not on file documented as of this encounter Visit Diagnoses Not on filedocumented in this encounter Care Teams Aircraft Structural Design Engineer Relationship Specialty Start Date End Date Khushboo Arreola PA [address] [place] [id number] PCP - General Family Medicine 03/20/22 documented as of this encounter
--- OUTSIDE RECORDS SUMMARY | 2024-08-14 09:40 | XMS_ITS | Continuity of Care Document ---
Author Organization [facility] Address [address] [place] [address] Care Team Providers Care Drafter Castings Name Role Phone Khushboo Arreola Primary Care Physician Encounter [facility] [id number] Date(s): 07/31/23 - 07/31/23 [facility] [address] [place] [address] Encounter Diagnosis Dental infection(Discharge Diagnosis) - 07/31/23 Discharge Disposition: Home or Self Care Attending Physician: Celso Darnell MD Admitting Physician: Celso Darnell MD Allergies, Adverse Reactions, Alerts No Known Medication Allergies Immunizations Given and Recorded Vaccine Date Status Refusal Reason influenza virus vaccine, inactivated 05/07/12 Alvin rded influenza virus vaccine, inactivated 04/25/11 Alvin rded Medications amoxicillin-clavulanate 875 mg-125 mg oral tablet 1 tab, Oral, every 12 hr, X 7 days, # 14 tab, 0 Refill(s), 08/07/23 7:04:00 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, Pharmacy: [id number] Start Date: 07/31/23 Stop Date: 08/07/23 Status: Ordered lisinopril 0 Refill(s) Start Date: 07/31/23 Status: Ordered pantoprazole 0 Refill(s) Start Date: 07/31/23 Status: Ordered Procedures Procedure Date Related Diagnosis Body Site Status Colonoscopy 05/26/21 Completed Vital Signs Most recent to oldest [Reference Range]: 1 Temperature Oral [35.8-37.3 Deg C] 36.6 Deg C (07/31/23 7:15 PM) Peripheral Pulse Rate [60-100 bpm] 100 b pm (07/31/23 7:15 PM) Respiratory Rate [12-24 br/min] 20 br/mi n (07/31/23 7:15 PM) Blood Pressure [90-140/60-90 mmHg] 168/6 8mmHg *HI* (07/31/23 7:15 PM) Mean Arterial Pressure, Cuff [70-110 mmH g] 101 mmHg (07/31/23 7:15 PM) Weight Estimated 56.70 kg (07/31/23 7:15 PM) Body Mass Index Estimated 23.6 kg/m2 (07/31/23 7:15 PM) Height/Length Estimated 155 cm (07/31/23 7:15 PM) Social History Social History Type Response Tobacco Current everyday tob acco user Tobacco Use:. 1/2 ppd per day. Sex Female Hospital Discharge Instructions Patient Education 07/31/2023 19:05:27 Dental Abscess Dental Abscess A dental abscess is an infection around a tooth that may involve pain, swelling, and a collection of pus, as well as other symptoms. Treatment is important to help with symptoms and to prevent the infection from spreading. The general types of dental abscesses are: ??? Pulpal abscess. This abscess may form from the inner part of the tooth (pulp). ??? Periodontal abscess. This abscess may form from the gum. What are the causes? This condition is caused by a bacterial infection in or around the tooth. It may result from: ??? Severe tooth decay (cavities). ??? Trauma to the tooth, such as a broken or chipped tooth. What increases the risk? This condition is more likely to develop in males. It is also more likely to develop in people who: ??? Have cavities. ??? Have severe gum disease. ??? Eat sugary snacks between meals. ??? Use tobacco products. ??? Have diabetes. ??? Have a weakened disease-fighting system (immune system). ??? Do not brush and care for their teeth regularly. What are the signs or symptoms? Mild symptoms of this condition include: ??? Tenderness. ??? Bad breath. ??? Fever. ??? A bitter taste in the mouth. ??? Pain in and around the infected tooth. Moderate symptoms of this condition include: ??? Swollen neck glands. ??? Chills. ??? Pus drainage. ??? Swelling and redness around the infected tooth, in the mouth, or in the face. ??? Severe pain in and around the infected tooth. Severe symptoms of this condition include: ??? Difficulty swallowing. ??? Difficulty opening the mouth. ??? Nausea. ??? Vomiting. How is this diagnosed? This condition is diagnosed based on: ??? Your symptoms and your medical and dental history. ??? An examination of the infected tooth. During the exam, your dental care provider may tap on theinfected tooth. You may also need to have X-rays taken of the affected area. How is this treated? This condition is treated by getting rid of the infection. This may be done with: ??? Antibiotic medicines. These may be used in certain situations. ??? Antibacterial mouth rinse. ??? Incision and drainage. This procedure is done by making an incision in the abscess to drain outthe pus. Removing pus is the first priority in treating an abscess. ??? A root canal. This may be performed to save the tooth. Your dental care provider accesses the visible part of your tooth (crown) with a drill and removes any infected pulp. Then the space is filled and sealed off. ??? Tooth extraction. The tooth is pulled out if it cannot be saved by other treatment. You may also receive treatment for pain, such as: ??? Acetaminophen or NSAIDs. ??? Gels that contain a numbing medicine. ??? An injection to block the pain near your nerve. Follow these instructions at home: Medicines ??? Take xrgg-odq-ednispc and prescription medicines only as told by your dental care provider. ??? If you were prescribed an antibiotic, take it as told by your dental care provider. Do not stoptaking the antibiotic even if you start to feel better. ??? If you were prescribed a gel that contains a numbing medicine, use it exactly as told in the directions. Do not use these gels for children who are younger than 2 years of age. ??? Use an antibacterial mouth rinse as told by your dental care provider. General instructions ??? Gargle with a mixture of salt and water 3???4 times a day or as needed. To make salt water, completely dissolve ?1 tsp (3???6 g) of salt in 1 cup (237 mL) of warm water. ??? Eat a soft diet while your abscess is healing. ??? Drink enough fluid to keep your urine pale yellow. ??? Do not apply heat to the outside of your mouth. ??? Do not use any products that contain nicotine or tobacco. These products include cigarettes, chewing tobacco, and vaping devices, such as e-cigarettes. If you need help quitting, ask your dental care provider. ??? Keep all follow-up visits. This is important. How is this prevented? Excellent dental home care, which includes brushing your teeth every morning and night with fluoride toothpaste. Floss one time each day. ??? Get regularly scheduled dental cleanings. ??? Consider having a dental sealant applied on teeth that have deep grooves to prevent cavities. ??? Drink fluoridated water regularly. This includes most tap water. Check the label on bottled water to see if it contains fluoride. ??? Reduce or eliminate sugary drinks. ??? Eat healthy meals and snacks. ??? Wear a mouth guard or face shield to protect your teeth while playing sports. Contact a health care provider if: ??? Your pain is worse and is not helped by medicine. ??? You have swelling. ??? You see pus around the tooth. ??? You have a fever or chills. Get help right away if: ??? Your symptoms suddenly get worse. ??? You have a very bad headache. ??? You have problems breathing or swallowing. ??? You have trouble opening your mouth. ??? You have swelling in your neck or around your eye. These symptoms may represent a serious problem that is an emergency. Do not wait to see if the symptoms will go away. Get medical help right away. Call your local emergency services (911 in the [place] Do not drive yourself to the hospital. Summary ??? A dental abscess is a collection of pus in or around a tooth that results from an infection. ??? A dental abscess may result from severe tooth decay, trauma to the tooth, or severe gum diseasearound a tooth. ??? Symptoms include severe pain, swelling, redness, and drainage of pus in and around the infectedtooth. ??? The first priority in treating a dental abscess is to drain out the pus. Treatment may also involve removing damage inside the tooth (root canal) or extracting the tooth. This information is not intended to replace advice given to you by your health care provider. Make sure you discuss any questions you have with your health care provider. Document Revised: 09/15/2021 Document Reviewed: 09/15/2021 Elsevier Patient Education ?? 2022 [employer] Follow Up Care 07/31/2023 19:14:56 With:Khushboo Arreola PA-C Address: [address] [address]- When:1 to 2 weeks Physician Emergency department Note * Celso Darnell MD: PERFORM Event Display: ED Note Physician Authored Date: [id number] ALVAREZ GONZALEZ :1970 Age:52 years Sex:Female Visit Date:07/31/2023 Primary Care Physician: Khushboo Arreola PA-C Basic Information Time Seen: Celso Darnell MD / 07/31/2023 19:34 Chief Complaint I noticed my R jaw was hurting this morning adn it's been getting worse all day. Now it's swollenPt denies tooth/gum pain, reports burning sensation, no airway concerns. Took aleve 1830 no releif.R jaw noted to be slightly swollen outwards on arrival History Of Present Illness: 52-year-old female presents with??jaw pain. ??She??was eating an egg earlier today and had sudden onset pain towards the right jaw has been having associated swelling??that time. ??Thinks there mightbe an infection in that area. Review of Systems: Dental pain Physical Exam Vitals & Measurements T:??36.6?C ??(Oral)?? HR:??100??(Peripheral)?? RR:??20?? BP:??168/68?? SpO2:??98%?? HT:??155??cm?? WT:??56.70??kg??(Estimated)?? BMI:??23.6?? Pain Score:??6?? O2 Therapy:??Room air?? No obvious fluctuance noted along the gumline,??patient is able to??clench down on tongue depressorbilateral??mandible??and with stand??the stress of moving the tongue depressor around,??there is??to the right lateral mandible,??pain is not directly located over the TMJ, it is more inferiorly Medical Decision Makin-year-old female presents with right-sided mandibular pain.?36.6, 168/68, 100, 20, 98%. ??Patient clinically in no acute distress.?? There is some swelling noted to the lateral aspect of the right mandible.?? Started on Augmentin??for what??may be??the onset of the dental infection. ??Close follow- up with dentist.?? There is no obvious evidence of??cracked tooth on exam??but will need dentalfollow-up. ??Discharge stable condition??with return precautions ED. Procedure No Qualifying Data Assessment/Plan 1.??Dental infection??K04.7 Ordered: amoxicillin-clavulanate 875 mg-125 mg oral tablet, 1 tab, Oral, every 12 hr, X 7 days, # 14 tab, 0 Refill(s), 08/07/23 20:04:00 EST, Pharmacy: [id number] ?? Patient Education Dental Abscess Follow Up With When Contact Information Khushboo Arreola PA-C Within 1 to 2 weeks [facility] [address] [place] [address]- Additional Instructions: Medication Reconciliation New Prescription amoxicillin-clavulanate (amoxicillin-clavulanate 875 mg-125 mg oral tablet)1 tab Oral (given by mouth) every 12 hours for 7 Days. Refills: 0. ?? Unchanged lisinopril ?? pantoprazole Problem List/Past Medical History Ongoing Tobacco user Historical No qualifying data Procedure/Surgical History ???Colonoscopy (05/27/2021) Medication Administration Given amoxicillin-clavulanate 875 mg-125 mg oral tablet, 1 tab, Oral Tylenol, 1000 mg, Oral Allergies No Known Medication Allergies Social History Alcohol Past Electronic Cigarette/Vaping Electronic Cigarette Use: Never. Substance Use Current, Marijuana, 1-2 times per week- Comments: smokes Tobacco Current everyday tobacco user Tobacco Use:. 1/2 ppd per day. Electronically Signed on 08/01/23 02:05 AM Celso Darnell MD Emergency department Discharge instructions * Celso Darnell MD: PERFORM Event Display: ED Discharge Information Authored Date: [id number] ALVAREZ GONZALEZ :1970 Age:52 years Sex:Female Visit Date:07/31/2023 Primary Care Physician: Khushboo Arreola PA-C Discharge Instructions We would like to thank you for allowing us to assist you with your healthcare needs. The following includes patient education materials and information regarding your injury/illness. Diagnosis from Today's Visit Dental infection Discharge Vitals Temperature??(Oral) 97.9 ??F (36.6 ??C) Heart Rate??(Peripheral) 100 Respiratory Rate?? 20 Blood Pressure?? 168/68?? Height?? 61.02 in (155 cm) Weight??(Estimated) 125.02 lb (56.70 kg) BMI?? 23.6 Allergies No Known Medication Allergies What to Do Next Instructions from Your Care Team Please follow-up with your dentist in 1 week. Come back to the ED if you have any worsening symptoms. You Need to Schedule the Following Appointments Follow Up with??Khushboo Arreola PA-C When:??Within 1 to 2 weeks Where: [facility] [address] [place] [address]- You were treated today on an emergency basis; it may be marinelli to contact your primary care provider to notify them of your visit today. You may have been referred to your regular doctor or a specialist, please follow up as instructed. If your condition worsens or you can't get in to see the doctor, contact the Emergency Department. Medications What How Much When Why Instructions Next Dose New amoxicillin-clavulanate (amoxicillin-clavulanate 875 mg-125 mg oral tablet) 1 tab Oral (given by mouth) Every 12 hours Dental infection Duration: 7 Days Pickup at [id number] Unchanged lisinopril Unchanged pantoprazole Pharmacy Information [id number]: [address] [place], [place] [phone] Education Materials Dental Abscess A dental abscess is an infection around a tooth that may involve pain, swelling, and a collection of pus, as well as other symptoms. Treatment is important to help with symptoms and to prevent the infection from spreading. The general types of dental abscesses are: ? Pulpal abscess. This abscess may form from the inner part of the tooth (pulp). ? Periodontal abscess. This abscess may form from the gum. What are the causes? This condition is caused by a bacterial infection in or around the tooth. It may result from: ? Severe tooth decay (cavities). ? Trauma to the tooth, such as a broken or chipped tooth. What increases the risk? This condition is more likely to develop in males. It is also more likely to develop in people who: ? Have cavities. ? Have severe gum disease. ? Eat sugary snacks between meals. ? Use tobacco products. ? Have diabetes. ? Have a weakened disease-fighting system (immune system). ? Do not brush and care for their teeth regularly. What are the signs or symptoms? Mild symptoms of this condition include: ? Tenderness. ? Bad breath. ? Fever. ? A bitter taste in the mouth. ? Pain in and around the infected tooth. Moderate symptoms of this condition include: ? Swollen neck glands. ? Chills. ? Pus drainage. ? Swelling and redness around the infected tooth, in the mouth, or in the face. ? Severe pain in and around the infected tooth. Severe symptoms of this condition include: ? Difficulty swallowing. ? Difficulty opening the mouth. ? Nausea. ? Vomiting. How is this diagnosed? This condition is diagnosed based on: ? Your symptoms and your medical and dental history. ? An examination of the infected tooth. During the exam, your dental care provider may tap on the infected tooth. You may also need to have X-rays taken of the affected area. How is this treated? This condition is treated by getting rid of the infection. This may be done with: ? Antibiotic medicines. These may be used in certain situations. ? Antibacterial mouth rinse. ? Incision and drainage. This procedure is done by making an incision in the abscess to drain out thepus. Removing pus is the first priority in treating an abscess. ? A root canal. This may be performed to save the tooth. Your dental care provider accesses the visible part of your tooth (crown) with a drill and removes any infected pulp. Then the space is filled and sealed off. ? Tooth extraction. The tooth is pulled out if it cannot be saved by other treatment. You may also receive treatment for pain, such as: ? Acetaminophen or NSAIDs. ? Gels that contain a numbing medicine. ? An injection to block the pain near your nerve. Follow these instructions at home: Medicines ? Take xctj-ypi-acrqvnl and prescription medicines only as told by your dental care provider. ? If you were prescribed an antibiotic, take it as told by your dental care provider. Do not stop taking the antibiotic even if you start to feel better. ? If you were prescribed a gel that contains a numbing medicine, use it exactly as told in the directions. Do not use these gels for children who are younger than 2 years of age. ? Use an antibacterial mouth rinse as told by your dental care provider. General instructions ? Gargle with a mixture of salt and water 3???4 times a day or as needed. To make salt water, completely dissolve ?1 tsp (3???6 g) of salt in 1 cup (237 mL) of warm water. ? Eat a soft diet while your abscess is healing. ? Drink enough fluid to keep your urine pale yellow. ? Do not apply heat to the outside of your mouth. ? Do not use any products that contain nicotine or tobacco. These products include cigarettes, chewing tobacco, and vaping devices, such as e-cigarettes. If you need help quitting, ask your dental careprovider. ? Keep all follow-up visits. This is important. How is this prevented? Excellent dental home care, which includes brushing your teeth every morning and night with fluoride toothpaste. Floss one time each day. ? Get regularly scheduled dental cleanings. ? Consider having a dental sealant applied on teeth that have deep grooves to prevent cavities. ? Drink fluoridated water regularly. This includes most tap water. Check the label on bottled water to see if it contains fluoride. ? Reduce or eliminate sugary drinks. ? Eat healthy meals and snacks. ? Wear a mouth guard or face shield to protect your teeth while playing sports. Contact a health care provider if: ? Your pain is worse and is not helped by medicine. ? You have swelling. ? You see pus around the tooth. ? You have a fever or chills. Get help right away if: ? Your symptoms suddenly get worse. ? You have a very bad headache. ? You have problems breathing or swallowing. ? You have trouble opening your mouth. ? You have swelling in your neck or around your eye. These symptoms may represent a serious problem that is an emergency. Do not wait to see if the symptoms will go away. Get medical help right away. Call your local emergency services (911 in the [place] Do not drive yourself to the hospital. Summary ? A dental abscess is a collection of pus in or around a tooth that results from an infection. ? A dental abscess may result from severe tooth decay, trauma to the tooth, or severe gum disease around a tooth. ? Symptoms include severe pain, swelling, redness, and drainage of pus in and around the infected tooth. ? The first priority in treating a dental abscess is to drain out the pus. Treatment may also involveremoving damage inside the tooth (root canal) or extracting the tooth. This information is not intended to replace advice given to you by your health care provider. Make sure you discuss any questions you have with your health care provider. Document Revised: 09/15/2021 Document Reviewed: 09/15/2021 Elsevier Patient Education ?? 2022 [employer] Patient/Hooking Machine Operator Signature Patient Name:ALVAREZ GONZALEZ I have received this information and my questions have been answered. Patient/Hooking Machine Operator Name: Patient/Hooking Machine Operator Signature: Relationship to Patient: Witness Name/Signature: Date: Electronically Signed on: 07/31/2023 20:05 ESTSigned by:[facility] Emergency department Note * Aide [place]: PERFORM Event Display: ED Notes Authored Date: [id number] Patient Care team information Care Team Personnel Name: Khushboo Arreola PA-C Position: PowerChart View Only Member Role: Informed Provider Address: Address: [address] [address]- [place] Name: Cindi De La Cruz Position: Nurse Member Role: ED Nurse Name: Celso Darnell MD Position: Physician Member Role: ED Physician Address: Address: [facility] [address] [place] [address]- Care Team Related Persons Name: SIMA LOPEZ Name: KERON CHENEY
--- OUTSIDE RECORDS SUMMARY | 2024-08-14 09:40 | XMS_ITS | Continuity of Care Document ---
Author Organization [facility] Address [address] [place] [address] Care Team Providers Care Psychologist Research Assistant Name Role Phone Khushboo Arreola Primary Care Physician Encounter [facility]ID Date(s): 09/17/23 - 09/17/[address] [id number] Discharge Disposition: Home or Self Care Attending [...] Only Member Role: Informed Provider Address: Address: [facility] [address] [place], [place] [address] Care Team Related Persons Name: SIMA LOPEZ Name: KERON CHENEY
--- OUTSIDE RECORDS SUMMARY | 2024-08-14 09:40 | XMS_ITS | Encounter Summary ---
Author Organization [facility] [place] [address] Care Team Providers Care Imaging Technician Name Role Phone Khushboo Arreola Primary Care Provider [phone] Reason for Visit * Diagnostic Test (Routine) - Closed Specialty Diagnoses / Procedures Referred By Contac t Referred To Contact Radiology Diagnoses Diarrhea, unspecified type Chronic nausea Cyclic vomiting syndrome Tenesmus Constipation, unspecified constipation type Irritable bowel syndrome with diarrhea Bloating BRBPR (bright red blood per rectum) Colon polyposis Smoking Nausea and vomiting, unspecified vomiting type Early satiety Procedures NM Gastric Emptying Scan Carina Negron [facility] [place] [address] [place] [address] Referral ID Status Reason Start Date Expiration Date V isits Requested Visits Authorized [id number] Closed Specialty Service Requested 08/09/2022 02/07/2024 1 1 Encounter Details Date Type Department Care Team (Latest Contact Info) Description 05/07/2023 9:57 AM EDT - 05/07/2023 11:59 PM EDT Hospital Encounter [place] [address] Carina Negron [facility] [place] [address] Discharge Disposition: Home Social History Tobacco Use Types Packs/Day Years Used Date Smoking Tobacco: Every Day Cigarettes Smokeless Tobacco: Never Sex and Gender Information Value Date Recorded Sex Assigned at Not on file Gender Identity Not on file Sexual Orientation Not on file documented as of this encounter Medications at Time of Discharge [...] mouth daily. documented as of this encounter Plan of Treatment Not on file documented as of this encounter Procedures Procedure Name Priority Date/Time Associated Diagnosis Comments NM GASTRIC EMPTYING SCAN Routine 05/07/2023 12:31 PM EDT Diarrhea, unspecified type Chronic nausea Cyclic vomiting syndrome Tenesmus Constipation, unspecified constipation type Irritable bowel syndrome with diarrhea Bloating BRBPR (bright red blood per rectum) Colon polyposis Smoking Nausea and vomiting, unspecified vomiting type Early satiety documented in this encounter Results * NM Gastric Emptying Scan (05/07/2023 12:31 PM EDT) Anatomical Region Laterality Modality Nuclear Medicine Impressions 05/07/2023 1:38 PM EDT Rapid gastric emptying, of questionable significance. I have personally reviewed the image(s) and the resident's interpretation and agree with the findings, Misha Merino MD at 05/07/2023 1:38 PM Thank you for letting us participate in the care of this patient. ??If you are a health care provider and have any questions regarding this report, please contact the number below. ??For patients who have questions please contact the health rn palliative care that requested your imaging first. ? Electronically signed by: Misha Merino MD, [facility] ([phone]), at 05/07/2023 1:38 PM Narrative 05/07/2023 1:38 PM EDT EXAMINATION: NM GASTRIC EMPTYING SCAN CLINICAL HISTORY: nausea. if gastric emptying delayed at 4 hours, please also comment if combined gastric/small bowel transit time is more/less than 3 hours (7 hours total) TECHNIQUE: A standard meal was labeled with 0.5 mCi of Technetium-99m sulfur colloid and ingested. Images of the stomach were obtained in the anterior and posterior projections immediately thereafter and 1 and 2 hours later. COMPARISON: None FINDINGS: Activity fills the stomach on the initial images obtained immediately after ingesting the meal. Small bowel is visible at one hour. There is minimal activity present in the stomach at 2 hours. Quantitative analysis: 1 hour: ??20% remains in the stomach (normal is typically greater than 30%). 2 hours: 7 percent remains in the stomach (normal less than 60%) Procedure Note Misha Merino MD - 05/07/2023 EXAMINATION: NM GASTRIC EMPTYING SCAN CLINICAL HISTORY: nausea. if gastric emptying delayed at 4 hours, pleasealso comment if combined gastric/small bowel transit time is more/less than 3hours (7 hours total) TECHNIQUE: A standard meal was labeled with 0.5 mCi of Technetium-99msulfur colloid and ingested. Images of the stomach were obtained in the anteriorand posterior projections immediately thereafter and 1 and 2 hours later. COMPARISON: None FINDINGS: Activity fills the stomach on the initial images obtained immediatelyafter ingesting the meal. Small bowel is visible at one hour. There is minimal activity present in the stomach at 2 hours. Quantitative analysis: 1 hour: 20% remains in the stomach (normal is typically greater than30%). 2 hours: 7 percent remains in the stomach (normal less than 60%) IMPRESSION Rapid gastric emptying, of questionable significance. I have personally reviewed the image(s) and the resident's interpretationand agree with the findings, Misha Merino MD at 05/07/2023 1:38 PM Thank you for letting us participate in the care of this patient. If youare a health care provider and have any questions regarding this report,please contact the number below. For patients who have questions please contactthe health rn palliative care that requested your imaging first. Electronically signed by: Misha Merino MD, [facility]([phone]), at 05/07/2023 1:38 PM Carina Abel Migdalia DIESEL POWERPLANT SUPERVISOR IMG NM ORDERABLES documented in this encounter Visit Diagnoses Not on filedocumented in this encounter Additional Health Concerns Infection Onset Date Last Indicated Resolved Time Rule Out C. difficile 05/07/2023 05/07/20232022 1:16 PM EDT documented as of this encounter Care Teams Imaging Technician Relationship Specialty Start Date End Date Khushboo Arreola [place] [address] [place] [id number] PCP - General Family Medicine 03/20/22 documented as of this encounter
--- OUTSIDE RECORDS SUMMARY | 2024-08-14 09:40 | XMS_ITS | Encounter Summary ---
[place] [address] Care Team Providers Care Electroplating Worker Name Role Phone Khushboo Arreola Primary Care Provider [phone] Encounter Details Date Type Department Care Team (Late st Contact Info) Description 12/14/2023 Telephone Gastroenterology at [place], [place] [id number] Raimundo Joseph Social History Tobacco Use Types [...] * Telephone Encounter - Raimundo Joseph - 12/14/2023 5:13 PM EDT Outbound call to patient to advised schedule change for upcoming HREM/IMP on 12/18/23, arrival time has been moved one hour later, from 730am arrival to 830am arrival. Left message for patient advising that day has remained the same but arrival time is now one hour later. documented in this encounter Plan of Treatment Not on file documented as of this encounter Visit Diagnoses Not on filedocumented in this encounter Care Teams Electroplating Worker Relationship Specialty Start Date End Date Khushboo Arreola PA [address] [place] [id number] PCP - General Family Medicine 03/20/22 documented as of this encounter
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
--- OUTSIDE RECORDS SUMMARY | 2024-08-14 09:40 | XMS_ITS | Encounter Summary ---
Author Organization [facility] [place] [address] Care Team Providers Care Outside Sales Engineer Name Role Phone Khushboo Arreola Primary Care Provider [phone] Reason for Visit * Auth/Cert (Routine) Specialty [...] (WRVU 3.26) Aldair Jon MD [address] [place] [address] [facility] Referral ID Status Reason Start Date Expiration Date Visits Re quested Visits Authorized [id number] 1 1 Encounter Details Date Type Department Care Team (Late st Contact Info) Description 09/13/2023 8:36 AM EST Anesthesia Event [place] [id number] Nima Napier MD [facility] [place] [address] Anesthesia Record Procedure Summary Procedure Name Responsible Anesthesiologist Anesthesia Start Time Anesthesia Stop Time EGD WITH BIOPSY (WRVU 2.39) (Trunk) Nima Napier MD 09/13/23 0836 09/13/23 0954 Events Date Time Event Comment 09/13/2023 0730 0836 AN Verify 0836 Start 0836 An Start Data 0840 An Induction 0840 Anesthesia Ready 0954 an stop data 0954 Recovery or ICU Handoff Zhane ent care was transferred to the destination unit staff after review of the patient's medical history, current anesthetic/surgical status and plan, according to the Provider Handoff Checklist. 0954 Stop Meds Name Total Propofol 400 mg Propofol INF 1,017.24 mg Dexmedetomidine 20 mcg lactated ringers infusion 900 mL * Agents Name O2 Auxiliary Flowmeter 1 * Blood No blood administrations on file. Lines, Drains, and Airways Type Details Placement Removal PIV 09/13/23; 0749; [id number] catheter system; 22 gauge; cephalic vein (lateral side of arm), right; Anatomical Landmarks; US Not Used; Rose Kemp RN; distraction, appears comfortable; 0; 09/13/23; 1031 09/13/23 0749 by Rose Andre, RN 09/13/23 1031 by Alyssa Mancia, RN documented in this encounter Social History Tobacco Use Types Packs/Day Years Used Date Smoking Tobacco: Every Day Cigarettes 0.3 42 Smokeless Tobacco: Never Alcohol Use Standard Drinks/Week Comments Yes 6 (1 standard drink = 0.6 oz pur e alcohol) Sex and Gender Information Value Date Recorded Sex Assigned at Not on file Gender Identity Not on file Sexual Orientation Not on file documented as of this encounter OR Notes * Anesthesia Postprocedure Evaluation - Nima Napier MD - 09/13/2023 10:09 AM EST Department of Anesthesiology Post-procedure Note Patient: Sultana Nicholas Procedure Summary Date: 09/13/23 Room / Location: [facility] / [facility] Anesthesia Start: 835 Anesthesia Stop: 953 Procedures: EGD WITH BIOPSY (WRVU 2.39) (Trunk) COLONOSCOPY, DIAGNOSTIC (WRVU 3.26) (Trunk) COLONOSCOPY WITH DIRECTED SUBMUCOSAL INJ (WRVU 3.56) Diagnosis: Diarrhea, unspecified type Chronic nausea Cyclic vomiting syndrome Tenesmus Constipation, unspecified constipation type Irritable bowel syndrome with diarrhea Bloating BRBPR (bright red blood per rectum) Colon polyposis Smoking Nausea and vomiting, unspecified vomiting type Early satiety (chronic vomiting and chronic diarrhea, previous OSH biopsy with active colitis, please biopsy throughout) Surgeons: Aldair Jon MD Responsible Provider: Nima Napier MD Anesthesia Type: MAC ASA Status: 3 All Anesthesia Providers: Anesthesiologist: Nima Napier MD MINING TECHNICIAN: Onofre Ren CRNA Vitals Value Taken Time BP 139/65 09/13/23 1006 Temp Pulse Resp 16 09/13/23 0954 SpO2 97 % 09/13/23 1008 Pain Level 0 09/13/23 0954 Vitals shown include unfiled device data. Patient Location: PACU/[facility] Level of Consciousness: Awake and Alert Pain Management: Satisfactory Analgesia PONV: None Cardiovascular Status: At Baseline and Hemodynamically Stable Respiratory Status: At Baseline and Room Air Postoperative Fluid Status: Intravascular EUvolemia Possible Anesthetic Complications: NONE apparent at time of evaluation Final Primary Anesthesia Type: MAC (The anesthetic type performed was the same as planned.) Comments: Nima Napier MD * Anesthesia Preprocedure Evaluation - Nima Napier MD - 09/13/2023 7:27 AM EST Pre-Anesthesia Evaluation for: Sultana Nicholas a 52 y.o. female. Procedure(s): EGD, UPPER GI ENDOSCOPY (WRVU 2.09) COLONOSCOPY, DIAGNOSTIC (WRVU 3.26) There are no problems to display for this patient. No past medical history on file. No past surgical history on file. Social History Tobacco Use ??? Smoking status: Every Day Packs/day: 1 Types: Cigarettes ??? Smokeless tobacco: Never Substance Use Topics ??? Alcohol use: Not on file Social History Substance and Sexual Activity Drug Use Not on file No Known Allergies Medications: MAR and/or home medications have been reviewed. Physical Exam: Preprocedure Vitals Current as of 09/13/23 0727 No BP, pulse, respiration, SpO2, or temperature recorded. Height: 156.2 cm (5' 1.5) (08/09/22) Weight: 60.8 kg (134 lb 1.6 oz) (08/09/22) BMI: 24.92 IBW: 48.9 kg (107 lb 14.3 oz) Airway Assessment: Mallampati: II TM distance: >3 FB Neck ROM: full Cardiovascular Assessment: Rhythm: regular Rate: normal system normal Pulmonary Assessment: unlabored breathing pulmonary exam normal Dental Assessment: - normal exam Misc Assessment: Patient is wearing No contact(s). IV access: Peripheral line Last Filed Perioperative Cognitive Screening None Anesthesia Plan: ASA 3 MAC, with a(n) intravenous induction 52-year-old 60.8 kg F with PMH: Chronic nausea, GERD (pantoprazole), patient presents here for EGD. Allergies: NKDA NPO status: Appropriate Plan: MAC, PIV x 1, standard ASA monitors Region - Other Informed Consent: Anesthetic plan and risks discussed with patient. Use of blood products discussed with who consented to blood products. Plan discussed with MINING TECHNICIAN and attending. Anesthesia Screening documented in this encounter Plan of Treatment Not on file documented as of this encounter Visit Diagnoses Not on filedocumented in this encounter Administered Medications Inactive Administered Medications - up to 3 most recent administrations Medication Order MAR Action Action Date Dose Rate Site dexmedeTOMIDine (Precedex) (4 mcg/mL) bolus injection (Anesthsia) Intravenous, PRN, Starting on Rox 09/13/23 at 0844, Until Rox 09/13/23 at 0954, Anesthesia Intra-op, Routine Given 09/13/2023 8:45 AM EST 8 mcg Given 09/13/2023 8:44 AM EST 12 mcg lactated ringers infusion 100 mL/hr, Intravenous, CONTINUOUS, Starting on Rox 09/13/23 at 0800, Until Rox 09/13/23 at 1032, Endoscopy (Day of Procedure) Restarted 09/13/2023 8:36 AM EST New Bag 09/13/2023 7:49 AM EST 100 mL/hr 100 mL/hr propofoL (Diprivan) (10 mg/mL) infusion Intravenous, CONTINUOUS PRN, Starting on Rox 09/13/23 at 0840, Until Rox 09/13/23 at 0954, Anesthesia Intra-op, Routine Rate/Dose Change 09/13/2023 9:00 AM EST 300 mcg/kg/min 93.42 mL/hr Rate/Dose Change 09/13/2023 8:44 AM EST 250 mcg/kg/min 77. 85 mL/hr New Bag 09/13/2023 8:40 AM EST 150 mcg/kg/min 46.71 mL/ hr propofoL (Diprivan) 10 mg/mL bolus injection (Anesthesia) Intravenous, PRN, Starting on Rox 09/13/23 at 0840, Until Rox 09/13/23 at 0954, Anesthesia Intra-op Given 09/13/2023 9:31 AM EST 50 mg Given 09/13/2023 9:00 AM EST 50 mg Given 09/13/2023 8:49 AM EST 50 mg documented in this encounter Care Teams Outside Sales Engineer Relationship Specialty Start Date End Date Khushboo Arreola PA [address] [place] [phone] PCP - General Family Medicine 03/20/22 documented as of this encounter
--- OUTSIDE RECORDS SUMMARY | 2024-08-14 09:40 | XMS_ITS | Encounter Summary ---
Author Organization [facility] [place] [address] Care Team Providers Care Pole Peeling Machine Operator Helper Name Role Phone Khushboo Arreola Primary Care Provider Encounter Details Date Type Department Care Team (Latest Contact Info) Description 05/07/2023 9:53 AM EDT - 05/07/2023 9:55 AM EDT Hospital [place] [address] Diarrhea, unspecified type; Chronic nausea; Cyclic vomiting syndrome; Tenesmus; Constipation, unspecified constipation type; Irritable bowel syndrome with diarrhea; Bloating; BRBPR (bright red blood per rectum); Colon polyposis; Smoking; Nausea and vomiting, unspecified vomiting type; Early satiety Discharge Disposition: Home Social History Tobacco Use [...] Procedure Name Priority Date/Time Associated Diagnosis Comments CAMPYLOBACTER ANTIGEN Routine 05/07/2023 10:22 AM EDT Diarrhea, unspecified type Chronic nausea Cyclic vomiting syndrome Tenesmus Constipation, unspecified constipation type Irritable bowel syndrome with diarrhea Bloating BRBPR (bright red blood per rectum) Colon polyposis Smoking Nausea and vomiting, unspecified vomiting type Early satiety SHIGA TOXIN ASSAY Routine 05/07/2023 10: 22 AM EDT Diarrhea, unspecified type Chronic nausea Cyclic vomiting syndrome Tenesmus Constipation, unspecified constipation type Irritable bowel syndrome with diarrhea Bloating BRBPR (bright red blood per rectum) Colon polyposis Smoking Nausea and vomiting, unspecified vomiting type Early satiety HC STOOL CULTURE Routine 05/07/2023 10:2 1 AM EDT Diarrhea, unspecified type Chronic nausea Cyclic vomiting syndrome Tenesmus Constipation, unspecified constipation type Irritable bowel syndrome with diarrhea Bloating BRBPR (bright red blood per rectum) Colon polyposis Smoking Nausea and vomiting, unspecified vomiting type Early satiety CALPROTECTIN,STOOL Routine 05/07/2023 10 :21 AM EDT Diarrhea, unspecified type Chronic nausea Cyclic vomiting syndrome Tenesmus Constipation, unspecified constipation type Irritable bowel syndrome with diarrhea Bloating BRBPR (bright red blood per rectum) Colon polyposis Smoking Nausea and vomiting, unspecified vomiting type Early satiety STOOL CULTURE Routine 05/07/2023 10:21 AM EDT Diarrhea, unspecified type Chronic nausea Cyclic vomiting syndrome Tenesmus Constipation, unspecified constipation type Irritable bowel syndrome with diarrhea Bloating BRBPR (bright red blood per rectum) Colon polyposis Smoking Nausea and vomiting, unspecified vomiting type Early satiety HC GIARDIA ANTIGEN ORTEGA METHOD Routine 05/06/2023 3:30 PM EDT Diarrhea, unspecified type Chronic nausea Cyclic vomiting syndrome Tenesmus Constipation, unspecified constipation type Irritable bowel syndrome with diarrhea Bloating BRBPR (bright red blood per rectum) Colon polyposis Smoking Nausea and vomiting, unspecified vomiting type Early satiety documented in this encounter Results * Shiga Toxin Detection (05/07/2023 10:22 AM EDT) Shiga Toxin Assay EIA Negative for Shiga Toxin 1 EIA Negative for Shiga Toxin 2 [facility] Stool 05/07/2023 10:2 2 AM EDT 05/07/2023 10:22 AM EDT Narrative Resulting Agency Comment Spec In Lab Carina Negron GAME MASTER MICROBIOLOGY - GENE RAL ORDERABLES Performing Organization Address [facility] Co de Phone Number [facility] [place] [address] * Campylobacter Antigen (05/07/2023 10:22 AM EDT) Campylobacter Ag Immunoassay Negative for Campylobacter Antigen [facility] Stool 05/07/2023 10:2 2 AM EDT 05/07/2023 10:22 AM EDT Narrative Resulting Agency Comment Spec In Lab Carina Negron GAME MASTER MICROBIOLOGY - GENE RAL ORDERABLES Performing Organization Address [facility] Co de Phone Number [facility] [place] [address] * Stool culture (05/07/2023 10:21 AM EDT) Stool Culture No enteric pathogens isolated [facility] Stool 05/07/2023 10:2 1 AM EDT 05/07/2023 10:21 AM EDT Narrative Resulting Agency Comment Spec In Lab Carina Negron GAME MASTER MICROBIOLOGY - GENE RAL ORDERABLES Performing Organization Address [facility] Co de Phone Number [facility] [place] [address] * Calprotectin, Stool (05/07/2023 10:21 AM EDT) Calprotectin, Stool <30 <=79 mcg/g [facility] Comment: Calprotectin Concentration ? Interpretation ? < 80 mcg/g ?Normal ? 80 ? 160 mcg/g ?Borderline ? >160 mcg/g ?Elevated Stool 05/07/2023 10:2 1 AM EDT 05/07/2023 11:02 AM EDT Narrative Resulting Agency Comment Spec In Lab Carina Negron GAME MASTER BODY FLUIDS AND STO OLS ORDERABLES Performing Organization Address [facility] Co de Phone Number [facility] [address] * Giardia/Cryptosporidium Antigens ([facility]/CGP/APD/NLH) (05/06/2023 3:30 PM EDT) Giardia Antigen Negative Negative [facility] Comment:Examination for othe r intestinal parasites requires foreign travel history. Cryptosporidium Antigen Negative Negative [facility] Stool 05/06/2023 3:30 PM EDT 05/07/2023 10:27 AM EDT Narrative Resulting Agency Comment Spec In Lab Carina Negron GAME MASTER MICROBIOLOGY - GENE RAL ORDERABLES Performing Organization Address [facility] de Phone Number [facility] [address] documented in this encounter Visit Diagnoses Diagnosis [...] type Early satiety documented in this encounter Additional Health Concerns Infection Onset Date Last Indicated Resolved Time Rule Out C. difficile 05/07/2023 05/07/20232022 1:16 PM EDT documented as of this encounter Care Teams Pole Peeling Machine Operator Helper Relationship Specialty Start Date End Date Khushboo Arreola PA [address] [place] [id number] PCP - General Family Medicine 03/20/22 documented as of this encounter
--- OUTSIDE RECORDS SUMMARY | 2024-08-14 09:40 | XMS_ITS | Encounter Summary ---
Author Organization [facility] [place] [address] Care Team Providers Care Software Developer Intern Name Role Phone Khushboo Arreola Primary Care Provider [phone] Reason for Visit * Diagnostic Test (Routine) [...] Procedures NM Gastric Emptying Scan Carina Negron [facility] [place] [address] [place] [address] Referral ID Status Reason Start Date Expiration Date V isits Requested Visits Authorized [id number] Closed Specialty Service Requested 08/09/2022 02/07/2024 1 1 Encounter Details Date Type Department Care Team (Latest Contact Info) Description 05/07/2023 9:57 AM EDT - 05/07/2023 11:59 PM EDT Hospital En[place] [address] Carina Negron [facility] [place] [address] Discharge Disposition: Home Social History [...] who have questions please contact the health point of care specialist that requested your imaging first. ? Electronically signed by: Misha Merino MD, [facility] ([phone]), at 05/07/2023 1:38 PM Narrative 05/07/2023 1:38 [...] patients who have questions please contactthe health point of care specialist that requested your imaging first. Electronically signed by: Misha Merino MD, [facility]([phone]), at 05/07/2023 1:38 PM Carina Abel Migdalia HYDROELECTRIC PLANT STRUCTURAL ENGINEER IMG NM ORDERABLES documented in this encounter Visit Diagnoses Not on filedocumented in this encounter Additional Health Concerns Infection Onset Date Last Indicated Resolved Time Rule Out C. difficile 05/07/2023 05/07/20232022 1:16 PM EDT documented as of this encounter Care Teams Software Developer Intern Relationship Specialty Start Date End Date Khushboo Arreola PA [address] [place] [address] PCP - General Family Medicine 03/20/22 documented as of this encounter
--- OUTSIDE RECORDS SUMMARY | 2024-08-14 09:40 | XMS_ITS | Encounter Summary ---
Author Organization [facility] Address [facility] [place] [address] Care Team Providers Care Commercial Production Editor Name Role Phone Khushboo Arreola Primary Care Provider Encounter Details Date Type Department Care Team (Latest Contact Info) Description 05/14/2023 Travel Social History Tobacco Use Types Packs/Day [...] on filedocumented in this encounter Care Teams Commercial Production Editor Relationship Specialty Start Date End Date Khushboo Arreola PA [address] [place] [phone] PCP - General Family Medicine 03/20/22 documented as of this encounter
--- OUTSIDE RECORDS SUMMARY | 2024-08-14 09:40 | XMS_ITS | Encounter Summary ---
Author Organization [facility] [place] [address] Care Team Providers Care Log Cutter Name Role Phone Khushboo Arreola Primary Care Provider Encounter Details Date Type Department Care Team (Latest Contact Info) Description 12/19/2023 Travel Social History Tobacco Use Types Packs/Day [...] on filedocumented in this encounter Care Teams Log Cutter Relationship Specialty Start Date End Date Khushboo Arreola PA [address] [place] [phone] PCP - General Family Medicine 03/20/22 documented as of this encounter
--- OUTSIDE RECORDS SUMMARY | 2024-08-14 09:40 | XMS_ITS | Encounter Summary ---
[place] [address] Care Team Providers Care School Aide Name Role Phone Khushboo Arreola Primary Care Provider [phone] Reason for Visit * Reason Onset Date Comments Appointment 02/28/2024 Encounter Details Date Type Department Care Team (Late st Contact Info) Description 02/28/2024 Telephone [place] [id number] Amie Peck Appointment Social History Tobacco Use Types Packs/Day Years [...] encounter Miscellaneous Notes * Telephone Encounter - Amie Peck - 02/28/2024 9:08 AM EDT Called and LVM for patient to return call for scheduling a f/u with [facility] provider in the same day. Schedule from the recall placed in patients chart. documented in this encounter Plan of Treatment Not on file documented as of this encounter Visit Diagnoses Not on filedocumented in this encounter Care Teams School Aide Relationship Specialty Start Date End Date Khushboo Arreola PA [address] [place] [address] PCP - General Family Medicine 03/20/22 documented as of this encounter
--- OUTSIDE RECORDS SUMMARY | 2024-08-14 09:40 | XMS_ITS | Encounter Summary ---
Author Organization [facility] Address [facility] [place] [address] Care Team Providers Care Mathematics Department Chair Name Role Phone Khushboo Arreola Primary Care Provider Encounter Details Date Type Department Care Team (Late st Contact Info) Description 11/14/2023 1:35 PM EDT Ancillary Procedure Radiology Library at [facility] [place] [address] Khushboo Arreola PA [address] [place] [address] Social History Tobacco Use Types Packs/Day Years [...] Procedure Name Priority Date/Time Associated Diagnosis Comments FILM LIBRARY STORAGE ONLY MR HEAD Routine 11/14/2023 1:34 PM EDT documented in this encounter Results * Film Library- Storage Only MR Head (11/14/2023 1:34 PM EDT) Narrative [facility] - 11/14/2023 1:34 PM EDT This exam is auto-finalizing. It's purpose is for storage only. Khushboo VINES [facility] FILM LIBRARY ORD ERABLES DH RAD [place], [place] documented in this encounter Visit Diagnoses Not on filedocumented in this encounter Care Teams Mathematics Department Chair Relationship Specialty Start Date End Date Khushboo Arreola PA [address] [place] [address] PCP - General Family Medicine 03/20/22 documented as of this encounter
--- OUTSIDE RECORDS SUMMARY | 2024-08-14 09:40 | XMS_ITS | Encounter Summary ---
[place] [address] Care Team Providers Care Professional Fee Coder Name Role Phone Khushboo Arreola Primary Care Provider Encounter Details Date Type Department Care Team (Late st Contact Info) Description 10/26/2023 Telephone [place] [address] [place] Social History Tobacco Use Types Packs/Day Years [...] encounter Miscellaneous Notes * Telephone Encounter - Vita [place] - 10/26/2023 12:59 PM EDT Malini from [facility] Radiology called. Said that they need a Creatinine order faxed to FAX#: [phone] in order to be done prior to MRI scheduled for 11/14/23 at [facility] Radiology (Geovanna Espinal patient) documented in this encounter Plan of Treatment Not on file documented as of this encounter Visit Diagnoses Not on filedocumented in this encounter Care Teams Professional Fee Coder Relationship Specialty Start Date End Date Khushboo Arreola PA [address] [place] [address] PCP - General Family Medicine 03/20/22 documented as of this encounter
--- OUTSIDE RECORDS SUMMARY | 2024-08-14 09:40 | XMS_ITS | Encounter Summary ---
Author Organization [facility] [place] [address] Care Team Providers Care Vice President Research Name Role Phone Khushboo Arreola Primary Care Provider [phone] Reason for Visit * Diagnostic Test (Routine) [...] Procedures NM Gastric Emptying Scan Carina Negron [facility] [place] [address] [place] [address] Referral ID Status Reason Start Date Expiration Date V isits Requested Visits Authorized [id number] Closed Specialty Service Requested 08/09/2022 02/07/2024 1 1 Encounter Details Date Type Department Care Team (Latest Contact Info) Description 05/07/2023 9:57 AM EDT - 05/07/2023 11:59 PM EDT Hospital Encounter [place] [address] Carina Negron [facility] [place] [address] Discharge Disposition: Home Social History [...] who have questions please contact the health resident care aid that requested your imaging first. ? Electronically signed by: Misha Merino MD, [facility] ([phone]), at 05/07/2023 1:38 PM Narrative 05/07/2023 1:38 [...] patients who have questions please contactthe health resident care aid that requested your imaging first. Electronically signed by: Misha Merino MD, [facility]([phone]), at 05/07/2023 1:38 PM Carina Abel Migdalia DELIVERY CREW MEMBER IMG NM ORDERABLES documented in this encounter Visit Diagnoses Not on filedocumented in this encounter Additional Health Concerns Infection Onset Date Last Indicated Resolved Time Rule Out C. difficile 05/07/2023 05/07/20232022 1:16 PM EDT documented as of this encounter Care Teams Vice President Research Relationship Specialty Start Date End Date Khushboo Arreola PA [address] [place] [phone] PCP - General Family Medicine 03/20/22 documented as of this encounter
--- OUTSIDE RECORDS SUMMARY | 2024-08-14 09:40 | XMS_ITS | Encounter Summary ---
[place] [address] Care Team Providers Care Patient Financial Specialist Name Role Phone Khushboo Arreola Primary Care Provider [phone] Reason for Visit * Diagnostic Test (Routine) - Closed Specialty Diagnoses / Procedures Referred By Contac t Referred To Contact Gastroenterology Diagnoses Gastroesophageal reflux disease, unspecified whether esophagitis present pH impedance ON PPI - heartburn Procedures pH Impedance - 24 Hour Geovanna Espinal, [facility] [place] [address] [facility] [address] [place] [address] Referral ID Status Reason Start Date Expiration Date V isits Requested Visits Authorized [id number] Closed Consult, Test & Treat 10/24/2023 10/23/2024 1 1 Encounter Details Date Type Department Care Team (Latest Contact Info) Description 12/18/2023 9:00 AM EDT Office [place] [address] Gastroesophageal reflux disease, unspecified whether esophagitis present Social History Tobacco Use Types Packs/Day Years [...] as of this encounter Progress Notes * Cindi Bynum RN - 12/18/2023 9:00 AM EDT A description of the esophageal manometry procedure was provided to the patient. All questions wereanswered and the patient verbalized understanding. The HREM catheter was placed via the left naris without difficulty. The esophageal manometry procedure was performed and the catheter was removed. The patient tolerated the procedure well. Prior to placement of the impedance catheter, a description of the procedure was provided to patient. All questions were answered and the patient verbalized understanding. Written instructions were given to the patient as well. At 9:40 the impedance catheter was placed in the left naris without difficulty. It was secured at 34cm with tape. This study is being performed on acid suppressants, which was confirmed by the patient. The patientis taking pantoprazole 40mg q am. * Nico Laura MD - 12/18/2023 9:00 AM EDT Images from the original note were not included. HIGH-RESOLUTION ESOPHAGEAL MANOMETRY PROCEDURE NOTE Patient: Sultana Nicholas Address: [address] [place] [id number] : 1970 Date of service: 12/18/2023 Indication: Heartburn Procedure: The patient arrived after an overnight fast. After verbal consent, a Mallory motility catheter with 36 circumferential sensors on 1 cm spacing with impedance sensors was inserted transnasally after application of topical anesthesia to the nasal passage. The catheter was positioned so that at least 2distal sensors were in the stomach and 2 proximal sensors were located above the UES. A 3-5 minute a cclimation period was provided followed by 10 wet swallows of 5 cc of water while supine. Normal values while supine: Upper esophageal sphincter residual pressure: < 12 mmHg Upper esophageal sphincter relaxation duration: > 480 msec Distal contractile integral (DCI): > 450 and < 8,000 mmHg x cm x s Distal latency time: > 4.5 sec Integrated EGJ relaxation pressure (IRP): < 15 mmHg Normal EGJ resting pressure (respiratory mean): 15-34 mmHg Findings: - Upper Esophageal Sphincter: normal mean residual pressure and relaxation duration - Body: 0% of swallows failed. 0% of swallows had premature contractions with shortened distal latency time. The remaining 100% of swallows were peristaltic, includin% of swallows with hypercontractility, 10% of swallows with weak peristalsis, and 0% of swallows with large breaks (>5 cm) in the 20mmHg isocontour line. - Esophagogastric Junction: Midpoint located 40 cm from the nares, and proximal extent located at 38 cm. 1cm hiatal hernia present. Normal resting pressure (mean 29 mmHg) and normal IRP in 90% of swallows (median 9.4 mmHg). - Bolus transit: Liquid boluses cleared in 90% of swallows. - Multiple rapid swallows: Peristaltic reserve: intact (ratio of post-multiple rapid swallow DCI to median DCI on 10 supine swallows is >=1.0) Deglutitive inhibition: normal deglutitive inhibition (DCI <100 mmHg*s*cm) during the maneuver Integrated relaxation pressure: 7 mmHg (normal <12 mmHg) - Rapid drink challenge: Esophageal body contractility: normal deglutitive inhibition (DCI <100 mmHg*s*cm) during the maneuver Integrated relaxation pressure: 2 mmHg (normal <12 mmHg) Commissary Representative swallow: Impressions based on Lincoln Classification v4.0: No evidence of a clinically significant disorder of peristalsis or EGJ outflow obstruction. *These findings assume that mechanical obstruction has been ruled out. Nico Laura MD, FRCPC Section of Gastroenterology and Hepatology [facility] [place] [address] V: [phone] F: [phone] CC/EC: JASMYN Lee [address] [place] [id number] * Nico Laura MD - 12/18/2023 9:00 AM EDT Catheter-based pH/impedance procedure report Patient: Sultana Nicholas Address: [address] [place] [id number] : 1970 Referring provider: Geovanna Espinal Date of service: 12/19/2023 Indication: Heartburn Procedure: The catheter was placed transnasally after topical anesthetic (1cc of 4% aerosol lidocaine and 1cc of 2% viscous lidocaine), with the esophageal pH sensor located 32cm from the nares, 5 cm above the manometrically identified lower esophageal sphincter. A gastric pH sensor was located 10 cm distal to the top of the lower esophageal sphincter. The patient was instructed to keep a diary of symptoms,and returned the next day for removal of the probe. Testing performed ON pantoprazole 40 mg OD acid-suppressive therapy. Analysis Duration Total (HH:MM): 23:44 Analysis Duration Upright (HH:MM): 13:20 Analysis Duration Supine (HH:MM): 10:24 Acid exposure time (AET): Total distal esophageal acid exposure time: 1.5 % of testing period Upright distal esophageal acid exposure time: 2.7 % of testing period Supine distal esophageal acid exposure time: 0 % of testing period DeMeester Score: 6.9 (normal: <14.7) Normal values for acid exposure time (AET) defined as the % of time with a pH <4 Conclusive evidence for pathologic reflux: AET >7.0% Borderline or inconclusive evidence for pathologic reflux: AET 4.0% to 7.0% Evidence against pathologic reflux: AET <4.0% Reflux symptom association (RSA): Symptom Index (SI) Symptom (# of occurrences) Acid Weak acid Nonacid All reflux Symptom (9) 44.4% 0% 0% 44.4% Symptom Association Probability (SAP) Symptom (# of occurrences) Acid Weak acid Nonacid All reflux Symptom 99.9% 0% 0% 99.9% Interpretation of reflux symptom association (RSA) Positive association: Symptom Associated Probability [SAP] > 95% AND Symptom Index [SI] > 50% No convincing association: Symptom Associated Probability [SAP] > 95% OR Symptom Index [SI] >50% No evidence of association: Symptom Associated Probability [SAP] < 95% AND Symptom Index [SI] < 50% Number of reflux events by impedance: 34 total (normal < 80) and 20 acidic (normal < 80) and 14 weakly acidic (normal < 80) Impression based on the Sheriff classification: Evidence against breakthrough acid reflux tested ON pantoprazole 40 mg OD medication. No convincing association between reflux and recorded symptoms of symptom. No evidence of elevated reflux burden measured by impedance. References: 1) Modern diagnosis of GERD: the Sheriff Consensus. Gut. 2018 Jan; 67(7): 1569-5912. 2) Validation of the Sheriff classification for GORD diagnosis: acid exposure time assessed by prolonged wireless pH monitoring in healthy controls and patients with erosive oesophagitis. Gut. 2020. doi10.1136/spkunf-[id number]. Nico Laura MD, FRCPC Section of Gastroenterology and Hepatology [facility] [place] [address] V: [phone] F: [phone] CC/EC: JASMYN Lee [address] [place] [address] documented in this encounter Plan of Treatment Not on file documented as of this encounter Visit Diagnoses Diagnosis Gastroesophageal reflux disease, unspecified whether esophagitis present documented in this encounter Care Teams Patient Financial Specialist Relationship Specialty Start Date End Date Khushboo Arreola PA [address] [place] [address] PCP - General Family Medicine 03/20/22 documented as of this encounter
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
--- OUTSIDE RECORDS SUMMARY | 2024-08-14 09:40 | XMS_ITS | Encounter Summary ---
Author Organization [facility] [place] [address] Care Team Providers Care Hotel Maid Name Role Phone Khushboo Arreola Primary Care Provider [phone] Encounter Details Date Type Department Care Team (Latest Contact Info) Description 05/07/2023 Travel Social History Tobacco Use Types Packs/Day [...] documented as of this encounter Care Teams Hotel Maid Relationship Specialty Start Date End Date Khushboo Arreola PA [address] [place] [id number] PCP - General Family Medicine 03/20/22 documented as of this encounter
--- OUTSIDE RECORDS SUMMARY | 2024-08-14 09:40 | XMS_ITS | Clinical Summary ---
Author Organization [facility] Address [facility] [place] [address] Care Team Providers Care Quarry Equipment Operator Name Role Phone Khushboo Arreola Primary Care Provider [phone] Allergies No known active allergies Medications Medication Sig Dispensed Refills Start Date End Date Status pantoprazole EC (Protonix) 40 mg Tablet, Delayed Release (E.C.) TAKE 1 TABLET BY MOUTH EVERY DAY 30 MINUTES BEFORE SUPPER 04/11/2022 Active calcium polycarbophil (FIBERCON ORAL) Take by mouth daily. Active LISINOPRIL ORAL 0 Refill(s) 07/31/2023 Active buPROPion XL (Wellbutrin XL) 150 mg XL 24 hr tablet TAKE 1 TABLET BY MOUTH EVERY MORNING TAKE WITH 300 MG TABLET. 03/28/2023 Active colestipoL (Colestid) 1 gram tablet 07/25/2023 Active Flovent HFA 110 mcg/actuation HFA Aerosol Inhaler 04/06/2023 Active multivitamin (THERAGRAN) Tablet Take 1 tablet by mouth daily. Active ondansetron (Zofran) 4 mg tablet Take 4 mg by mouth every 8 hours as needed for Nausea. Active ondansetron ODT (Zofran-ODT) 4 mg disintegrating tabletIndications:Cycli jennifer vomiting syndrome Take 1 tablet by mouth every 8 hours as needed for Nausea. 20 tablet 01/11/2024 Active Social History Tobacco Use Types Packs/Day Years [...] on file Sexual Orientation Not on file Last Filed Vital Signs Vital Sign Reading Time Taken Comments Blood Pressure 154/94 10/24/2023 10:17 AM EDT Pulse 103 10/24/2023 10:17 AM EDT Temperature 36.6 ??C (97.8 ??F) 09/13/2023 7:34 AM ES T Respiratory Rate 17 09/13/2023 10:10 AM EST Oxygen Saturation 99% 09/13/2023 10:10 AM EST Inhaled Oxygen Concentration - - Weight 58.1 kg (128 lb) 10/24/2023 10:17 AM EDT Height 154.9 cm (5' 1) 10/24/2023 10:17 AM EDT Body Mass Index 24.19 10/24/2023 10:17 AM EDT Plan of Treatment Health Maintenance Due Date Last Done Comments CT Colonography 1970 FIT DNA 1970 FIT 1970 Sigmoidoscopy 1970 HIV screen 1988 Hepatitis C Screening 1988 Lipid Screening 1988 Hepatitis B vaccine (0-59 yrs) (1) 1989 Pneumoccocal Vaccine: 50+ (1 of 2 - PCV) 1989 Tetanus/Diphtheria/Pertussis Vaccines (1 - Tdap) 1989 HPV test 2000 PAP Smear 2000 Breast Cancer Share Decision Needed 2010 Breast Cancer screening 2010 Zoster vaccine (1 of 2) 2020 Covid-19 Vaccine (1 - 2023-2 5 season) 2024 Influenza (Flu) vaccine (1 o f 1 - Influenza standard series) 03/23/2024 Colonoscopy 09/13/2026 09/13/2023, 2 08/2023, 09/13/2023 Colorectal Cancer Screening 09/13/2026 Sigmoidoscopy (10 year) with FIT yearly 09/13/2033 09/13/2023, 09/13/2023, 09/13/2023 Diabetes Screening (HgbA1C o r Glucose) Discontinued 04/30/2023 Procedures Procedure Name Priority Date/Time Associated Diagnosis Comments COLONOSCOPY Routine 09/13/2023 8:37 AM EST COMPREHENSIVE METABOLIC PANEL Routine 04/30/2023 11:18 AM EDT Diarrhea, unspecified type Chronic nausea Cyclic vomiting syndrome Tenesmus Constipation, unspecified constipation type Irritable bowel syndrome with diarrhea Bloating BRBPR (bright red blood per rectum) Colon polyposis Smoking Nausea and vomiting, unspecified vomiting type Early satiety from Last 3 Months or Most Recently Relevant to Health Maintenance Results * COLONOSCOPY (09/13/2023 8:37 AM EST) COLONOSCOPY [facility] Endoscopy Procedure Date: 09/13/2023 8:37 AM ? Patient Name: Sultana Nicholas ? Date of : 1970 ? Age: 52 ? Order #: [id number] ? Instrument Name: [id number] ? Procedure: ? Colonoscopy Indications: ? Diarrhea, question of colitis on ? last exam. Recent normal fecal ? calprotectin. Normal CT ? enterography. Providers: ? Case Martin ? , BEATA, Bridgett Tariq Referring MD: ?Khushboo Ward, ? Carina Negron Medicines: ? Monitored Anesthesia Care Complications: [...] the ? physician, the nurse, the ? desktop engineer and the nuclear fuel processing technician. The ? procedure was verified in [...] care under ? the supervision of a AUTOMOTIVE REFINISHER was ? determined to be medically ? [...] preparation was evaluated ? using the BBPS ([place] Bowel ? Preparation Scale) with scores of: [...] [facility] ORD ERABLES [employer]ATION * (ABNORMAL) Comprehensive metabolic panel (non-fasting) (04/30/2023 11:18 AM EDT) Glucose 98 65 - 199 mg/dL [facility] Comment:Diabetes: >=200 mg/d L plus symptoms Blood Urea Nitrogen 13 8 - 18 mg/dL [facility] Creatinine 0.54(L) 0.70 - 1.20 mg/dL [facility] Sodium 140 135 - 145 mmol/L [facility] Potassium 4.1 3.5 - 5.0 mmol/L [facility] Comment: Please note: ??Patients with WBC >100,000 may have falsely elevated Potassium levels. ??For accurate Potassium quantification in these patients send serum separator tube (gold top) for subsequent determinations. ??Contact the Clinical Chemistry Laboratory if there are any questions. Chloride 102 98 - 107 mmol/L [facility] Carbon Dioxide 23 22 - 31 mmol/L [facility] Anion Gap 15 5 - 15 mmol/L [facility] Calcium 9.5 8.5 - 10.5 mg/dL [facility] Protein, Total 7.5 6.1 - 8.0 g/dL [facility] Albumin 4.5 3.2 - 5.2 g/dL [facility] Aspartate Aminotransferase 62(H) 0 - 30 unit/L [facility] Alanine Aminotransferase 54(H) 0 - 30 unit/L [facility] Alkaline Phosphatase 103 35 - 105 unit/L [facility] Bilirubin, Total 0.3 0.2 - 1.3 mg/dL [facility] Est Glomerular Filtration Rate 111 >=60 mL/min/1. 73 m?? [facility] Comment: This patient's estimated GFR was calculated using the 2020 CKD-EPI equation. The estimated GFR can vary from the measured GFR by up to 30% in the absence of rapidly changing kidney function. Assessment of the estimated GFR is not appropriate when creatinine concentrations are rapidly changing. For clinical situations in which a more precise estimate of GFR is necessary, consider alternative methods of GFR estimation such as a 24-hour urine creatinine clearance. Assignment of CKD stage 1-5 for patients with an eGFR near the transition point between stages may be based on clinical assessment of muscle mass and symptoms in addition to eGFR. Blood 04/30/2023 11:1 8 AM EDT 04/30/2023 11:31 AM EDT Narrative Resulting Agency Comment Spec In Lab Carina Negron APRN CHEMISTRY ORDERABLE S [facility] [place] [place] [address] from Last 3 Months or Most Recently Relevant to Health Maintenance Care Teams Quarry Equipment Operator Relationship Specialty Start Date End Date Khushboo Arreola PA [address] [place], [place] [id number] PCP - General Family Medicine 03/20/22
--- OUTSIDE RECORDS SUMMARY | 2024-08-14 09:40 | XMS_ITS | Encounter Summary ---
[place] [address] Care Team Providers Care Endocrinology Teacher Name Role Phone Khushboo Arreola Primary Care Provider Reason for Visit * Reason Onset Date Comments Prior Authorization 10/25/2023 Encounter Details Date Type Department Care Team (Late st Contact Info) Description 10/25/2023 Tele[place] [id number] Adwoa Dodd Prior Authorization Social History Tobacco Use Types Packs/Day Years [...] encounter Miscellaneous Notes * Telephone Encounter - Adwoa Dodd - 10/25/2023 10:24 AM EDT [facility] Radiology received a MRI ordered yesterday on from GI provider Teddy. They are asking once a Prior Auth is received for this to please fax to [phone] or to follow up you can call [phone] ext [phone]. documented in this encounter Plan of Treatment Not on file documented as of this encounter Visit Diagnoses Not on filedocumented in this encounter Care Teams Endocrinology Teacher Relationship Specialty Start Date End Date Khushboo Arreola PA [address] [place] [address] PCP - General Family Medicine 03/20/22 documented as of this encounter
--- OUTSIDE RECORDS SUMMARY | 2024-08-14 09:40 | XMS_ITS | Encounter Summary ---
Author Organization [facility] [place] [address] Care Team Providers Care Repairer Hairspring Name Role Phone Khushboo Arreola Primary Care Provider Encounter Details Date Type Department Care Team (Latest Contact Info) Description 05/18/2023 Travel Social History Tobacco Use Types Packs/Day [...] on filedocumented in this encounter Care Teams Repairer Hairspring Relationship Specialty Start Date End Date Khushboo Arreola PA [address] [place] [id number] PCP - General Family Medicine 03/20/22 documented as of this encounter
--- OUTSIDE RECORDS SUMMARY | 2024-08-14 09:40 | XMS_ITS | Encounter Summary ---
Author Organization [facility] [place] [address] Care Team Providers Care Liquor Grinder Mill Operator Name Role Phone Khushboo Arreola Primary Care Provider Reason for Referral * Diagnostic Test (Routine) - Closed Specialty Diagnoses / Procedures Referred By Contirish t Referred To Contact Radiology Diagnoses Diarrhea, unspecified type Chronic nausea Cyclic vomiting syndrome Tenesmus Constipation, unspecified constipation type Irritable bowel syndrome with diarrhea Bloating BRBPR (bright red blood per rectum) Colon polyposis Smoking Nausea and vomiting, unspecified vomiting type Early satiety Procedures CT Enterography Carina Negron APRN [facility] [place] [address] [place] [address] Referral ID Status Reason Start Date Expiration Date V isits Requested Visits Authorized [id number] Closed Specialty Service Requested 08/09/2022 02/07/2024 1 1 Reason for Visit * Diagnostic Test (Routine) - Closed Specialty Diagnoses / Procedures Referred By Contirish t Referred To Contact Radiology Diagnoses Diarrhea, unspecified type Chronic nausea Cyclic vomiting syndrome Tenesmus Constipation, unspecified constipation type Irritable bowel syndrome with diarrhea Bloating BRBPR (bright red blood per rectum) Colon polyposis Smoking Nausea and vomiting, unspecified vomiting type Early satiety Procedures CT Enterography Carina Negron APRN [facility] [place] [address] [facility] [place] [address] Referral ID Status Reason Start Date Expiration Date V isits Requested Visits Authorized [id number] Closed Specialty Service Requested 08/09/2022 02/07/2024 1 1 Encounter Details Date Type Department Care Team (Latest Contact Info) Description 05/31/2023 7:46 AM EST - 05/31/2023 11:59 PM [facility] Hospital Encounter CT Scan at [facility] [place] [address] Carina Negron APRN [facility] [place] [address] Diarrhea, unspecified type; Chronic nausea; Cyclic vomiting [...] Procedure Name Priority Date/Time Associated Diagnosis Comments CT ENTEROGRAPHY Routine 05/31/2023 9:12 AM EST Diarrhea, unspecified type Chronic nausea Cyclic vomiting syndrome Tenesmus Constipation, unspecified constipation type Irritable bowel syndrome with diarrhea Bloating BRBPR (bright red blood per rectum) Colon polyposis Smoking Nausea and vomiting, unspecified vomiting type Early satiety documented in this encounter Results * CT Enterography (05/31/2023 9:12 AM EST) Anatomical Region Laterality Modality Chest, Abdomen Computed Tomogra phy Impressions 05/31/2023 11:00 PM EST No obstructive, infectious or inflammatory bowel process. No significant change from recent prior imaging. Thank you for letting us participate in the care of this patient. ??If you are a health care provider and have any questions regarding this report, please contact the number below. ??For patients who have questions please contact the health managed care nurse that requested your imaging first. ? Narrative 05/31/2023 11:00 PM EST EXAMINATION: CT ENTEROGRAPHY CLINICAL HISTORY: vomiting, rule out small bowel crohn's (please measure SMA angle, no angio needed) TECHNIQUE: Helical CT Enterography of the abdomen and pelvis following the intravenous administration of 125 mL Omnipaque 350. Breeza was administered as an oral contrast. COMPARISON: CTA abdomen and pelvis 04/30/2023 FINDINGS: Gastrointestinal tract: No dilated small or large bowel, bowel wall thickening, or mesenteric inflammation. No mural hyperenhancement. Peritoneum and mesentery: No ascites, free air, or loculated fluid collection. Lower chest: Normal. Liver: Normal size and attenuation without lesions. Bile ducts: Nondilated. Gallbladder: No calcified gallstones. Normal caliber wall. Pancreas: Normal attenuation without ductal dilatation. Spleen: Normal. Adrenals: Normal. Kidneys: Unchanged right renal cyst. Normal left kidney. Urinary Bladder: Normal. Vasculature: Normal caliber abdominal aorta. Negative for SMA syndrome. Patent portal veins. Lymph Nodes: Prominent portacaval lymph node suspected baseline size, 1.3 cm, no significant change. No other enlarged nodes. Abdominal wall: Small fat-containing umbilical hernia Reproductive organs: Normal contours of the uterus and adnexae. Osseous structures: No suspicious lesions. Procedure Note Nima Parrish MD - 05/31/2023 EXAMINATION: CT ENTEROGRAPHY CLINICAL HISTORY: vomiting, rule out small bowel crohn's (please measureSMA angle, no angio needed) TECHNIQUE: Helical CT Enterography of the abdomen and pelvis followingthe intravenous administration of 125 mL Omnipaque 350. Breeza wasadministered as an oral contrast. COMPARISON: CTA abdomen and pelvis 04/30/2023 FINDINGS: Gastrointestinal tract: No dilated small or large bowel, bowel wallthickening, or mesenteric inflammation. No mural hyperenhancement. Peritoneum and mesentery: No ascites, free air, or loculated fluidcollection. Lower chest: Normal. Liver: Normal size and attenuation without lesions. Bile ducts: Nondilated. Gallbladder: No calcified gallstones. Normal caliber wall. Pancreas: Normal attenuation without ductal dilatation. Spleen: Normal. Adrenals: Normal. Kidneys: Unchanged right renal cyst. Normal left kidney. Urinary Bladder: Normal. Vasculature: Normal caliber abdominal aorta. Negative for SMA syndrome.Patent portal veins. Lymph Nodes: Prominent portacaval lymph node suspected baseline size, 1.3cm, no significant change. No other enlarged nodes. Abdominal wall: Small fat-containing umbilical hernia Reproductive organs: Normal contours of the uterus and adnexae. Osseous structures: No suspicious lesions. IMPRESSION No obstructive, infectious or inflammatory bowel process. No significantchange from recent prior imaging. Thank you for letting us participate in the care of this patient. If youare a health care provider and have any questions regarding this report,please contact the number below. For patients who have questions please contactthe health managed care nurse that requested your imaging first. Carina Negron APRN IMG CT ORDERABLES documented in this encounter Visit Diagnoses Diagnosis [...] MAR Action Action Date Dose Rate Site flavored contrast (BREEZA) oral liquid 1,500 mL 1,500 mL, Oral, ONCE PRN, 1 dose, Starting on Rox 05/31/23 at 0856, Until Rox 05/31/23 at 0912, Per Protocol, Radiology Contrast, Routine Given 05/31/2023 9:12 AM EST 1,500 mLs iohexoL (Omnipaque) (350 mg/mL) solution 0-200 mL 0-200 mL, Intravenous, ONCE PRN, 1 dose, Starting on Rox 05/31/23 at 0856, Until Rox 05/31/23 at 0912, Per Protocol, Warning Vesicant/Irritant Medication , Radiology Contrast, Routine Given 05/31/2023 9:12 AM EST 125 mLs documented in this encounter Care Teams Liquor Grinder Mill Operator Relationship Specialty Start Date End Date Khushboo Arreola PA [address] [address] PCP - General Family Medicine 03/20/22 documented as of this encounter
--- OUTSIDE RECORDS SUMMARY | 2024-08-14 09:40 | XMS_ITS | Continuity of Care Document ---
Author Organization [facility] Address [address] [place] [address] Care Team Providers Care Greenhouse Worker Name Role Phone Khushboo Arreola Primary Care Physician [facility]14/[facility] - 11/14/23 [facility] [address] [place] [address] Discharge Disposition: Home or Self Care Attending Physician: Geovanna Espinal APRN Admitting Physician: Geovanna Espinal APRN Referring Physician: Geovanna Espinal APRN Allergies, Adverse Reactions, Alerts No Known Medication [...] Only Member Role: Informed Provider Address: Address: [facility] [address] [place] [address]- Care Team Related Persons Name: SIMA LOPEZ Name: KERON CHENEY
--- OUTSIDE RECORDS SUMMARY | 2024-08-14 09:40 | XMS_ITS | Continuity of Care Document ---
Author Organization [facility] Address [address] [place] [address] Care Team Providers Care Middle School Volleyball Coach Name Role Phone Khushboo Arreola Primary Care Physician [facility] [id number] Date(s): 11/10/23 - 11/10/23 [facility] [address] [place] [address] Discharge Disposition: Home or Self Care Attending Physician: Geovanna Espinal APRN Admitting Physician: Geovanna Espinal APRN Referring Physician: Geovanna Espinal APRN Allergies, Adverse Reactions, Alerts No Known Medication Allergies Assessment and Plan Diagnostic Tests Pending * Methylmalonic Acid, Qnt, S HEART BUTTE 11/10/23 * Homocysteine, Total, P HEART BUTTE 11/10/23 * Ceruloplasmin, S HEART BUTTE 11/10/23 * Alpha 1 Antitrypsin UV 11/10/23 * Mitochondrial Abs (M2), S HEART BUTTE 11/10/23 * Anti Nuclear Ab (BALDO), IFA UV 11/10/23 * Hepatitis C Ab w/Rflx to HCV RNA PCR UV 11/10/23 * HIV 1/2 Ag and Ab, 4th Generation UV 11/10/23 * Smooth Muscle Ab Scr, S HEART BUTTE 11/10/23 * IgG UV 11/10/23 * Hepatitis B Core Antibody (Total) UV 11/10/23 * Hepatitis B Surface Antigen UV 11/10/23 * Hepatitis B Surface Antibody UV 11/10/23 * Hepatitis A Total Antibody w/Rflx UV 11/10/23 Immunizations Given and Recorded Vaccine Date Status Refusal Reason influenza virus vaccine, inactivated 05/07/12 Alvin rded influenza virus vaccine, inactivated 04/25/11 Alvin rded Medications lisinopril 0 Refill(s) Start Date: 07/31/23 Status: Ordered pantoprazole 0 Refill(s) Start Date: 07/31/23 Status: Ordered Procedures Procedure Date Related Diagnosis Body Site Status Colonoscopy 05/26/21 Completed Results Laboratory List Name Date .Morphology (NCTY) 11/10/23 Automated Diff 11/10/23 CBC w/ Diff 11/10/23 CBC w/o Diff 11/10/23 Comprehensive Metabolic Panel 11/10/23 Ferritin 11/10/23 Iron Level and TIBC 11/10/23 Most recent to oldest [Reference Range]: 1 2 WBC [5.0-10.0 x10^3/mcL] 6.6 x10^3/mcL (11/10/23 8:25 AM) 6.6 x10^3/mcL (11/10/23 8:25 AM) RBC [4.1-5.3 x10^6/mcL] 3.5 x10^6/mcL *LOW* (11/10/23 8:25 AM) 3.5 x10^6/mcL *LOW* (11/10/23 8:25 AM) Neutro Auto [40.0-75.0 %] 59.6 % (11/10/23 8:25 AM) Lymph Auto [20.0-50.0 %] 29.9 % (11/10/23 8:25 AM) [place] Auto [2.0-15.0 %] 6.8 % (11/10/23 8:25 AM) Basophil Auto [0.0-1.0 %] 0.6 % (11/10/23 8:25 AM) BUN [7-18 mg/dL] 14 mg/dL (11/10/23 8:25 AM) Glucose Level [74-106 mg/dL] 100 mg/dL (11/10/23 8:25 AM) Potassium Level [3.5-5.1 mmol/L] 4.1 mmo l/L (11/10/23 8:25 AM) MCV [80.0-96.0 fL] 105.4 fL *HI* (11/10/23 8:25 AM) 105.4 fL *HI* (11/10/23 8:25 AM) RBC Morph Abnormal (11/10/23: AM) AST [15-37 unit/L] 29 unit/L (11/10/23 8:25 AM) ALT [14-59 unit/L] 35 unit/L (11/10/23 8:25 AM) MCHC [31.0-35.0 g/dL] 32.9 g/dL (11/10/23:25 AM) 32.9 g/dL (11/10/2325 AM) Sodium Level [136-145 mmol/L] 140 mmol/L (11/10/23 8:25 AM) Hct [37.0-47.0 %] 37.1 % (11/10/23 AM) 37.1 % (11/10/23 AM) Calcium Level [8.5-10.1 mg/dL] 9.4 mg/dL (11/10/23 AM) Albumin Level [3.4-5.0 g/dL] 3.5 g/dL (11/10/23 AM) Protein Total [6.4-8.2 g/dL] 7.3 g/dL (11/10/23:25 AM) Iron Sat [20-55 %] 14 % *LOW* (11/10/23 AM) MCH [26.0-32.0 pg] 34.7 pg *HI* (11/10/23:25 AM) 34.7 pg *HI* (11/10/23:25 AM) Neutro Absolute 3.9 x10^3/mcL *NA* (11/10/23: AM) Bilirubin Total [0.2-1.0 mg/dL] 0.2 mg/d L (11/10/23 8:25 AM) Hgb [12.0-16.0 g/dL] 12.2 g/dL (11/10/23 8:25 AM) 12.2 g/dL (11/10/23 8:25 AM) Alk Phos [46-146 unit/L] 77 unit/L (11/10/23 8:25 AM) Ferritin Level [8-252 ng/mL] 303 ng/mL *HI* (11/10/23 8:25 AM) Platelets [130-450 x10^3/mcL] 261 x10^3/ mcL (11/10/23 8:25 AM) 261 x10^3/mcL (11/10/23 8:25 AM) CO2 [21-32 mmol/L] 28 mmol/L (11/10/23 8:25 AM) TIBC [250-450 mcg/dL] 366 mcg/dL (11/10/23 8:25 AM) Iron [50-170 mcg/dL] 51 mcg/dL (11/10/23 8:25 AM) Macrocyte Small (11/10/23:25 AM) eGFR Non-AA [>=60] 100 (11/10/23 8:25 AM) eGFR AA [>=60] 100 (11/10/23: AM) Chloride Level [98-107 mmol/L] 102 mmol/ L (11/10/23: AM) RDW-CV [11.5-14.5 %] 11.8 % (11/10/23: AM) 11.8 % (11/10/23:25 AM) Stomatocyte Rare (11/10/23: AM) Imm Gran Auto [0.0-0.9 %] 0.2 % (11/10/23 8:25 AM) Slide Review Morph Only (11/10/23 AM) Creatinine Level [0.55-1.02 mg/dL] 0.72 mg/dL (11/10/23 8:25 AM) Plt Estimation [Adequate] Adequate (11/10/23 8:25 AM) Eos, Auto [1.0-6.0 %] 2.9 % (11/10/23 8:25 AM) Social History Social History Type Response Tobacco Current everyday tob acco user Tobacco Use:. 1/2 ppd per day. Sex Female Patient Care team information Care Team Personnel Name: Khushboo Arreola PA-C Position: PowerChart View Only Member Role: Informed Provider Address: Address: [address] [address]- Care Team Related Persons Name: SIMA LOPEZ Name: KERON CHENEY
--- OUTSIDE RECORDS SUMMARY | 2024-08-14 09:40 | XMS_ITS | Encounter Summary ---
[place] [address] Care Team Providers Care Lead Systems Analyst Name Role Phone Khushboo Arreola Primary Care Provider Encounter Details Date Type Department Care Team (Late st Contact Info) Description 07/25/2023 [place] [phone] Marina Robles Social History Tobacco Use Types Packs/Day Years Used Date Smoking Tobacco: Every Day Cigarettes Smokeless Tobacco: Never Sex and Gender Information Value Date Recorded Sex Assigned at Not on file Gender Identity Not on file Sexual Orientation Not on file documented as of this encounter Miscellaneous Notes * Telephone Encounter - Marina Robles - 07/25/2023 10:38 AM EST Sultana Nicholas [id number] Diagnosis/Indication: chronic vomiting and chronic diarrhea, previous OSH biopsy with active colitis, please biopsy throughout Please review patient chart to confirm if previous Endoscopy procedure was performed within system. If yes, take note of Anesthesia type used. If previous procedure found, and with MAC/propofol Anesthesia support was used, schedule this procedure with Anesthesia and skip the Anesthesia portion of questions. If not performed within system, not performed at all, or performed with IVCS, ask Anesthesia questions. SCHEDULING QUESTIONS (ask all patient these questions) Have you ever had a/an Upper Endoscopy & Colonoscopy before? Yes: Date 2020 [place] If yes, did you have any problems with the procedure (such as waking up during the procedure, pain or difficulties afterwards, etc.)? No What type of sedation was used: Other: unknown Do you take any blood thinners or have you been diagnosed with a bleeding disorder that increases your risk of bleeding with procedures? No Do you have a Pacemaker or Defibrillator device? If yes, send pool message to Cardiology with patient information and date or procedure. No Are you a diabetic? If yes, call PCP/managing provider to discuss use of prep and any questions or concerns related to. No Do you take any iron supplements or vitamins that contain iron? No Do you have a preference regarding the gender of your provider? No ANESTHESIA QUESTIONS (YES to any question, please book with Anesthesia support) Have you ever been diagnosed with Pulmonary Hypertension and/or Congential Heart Disease? No Have you been diagnosed with A-Fib (atrial fibrillation) that is NOT being well controled with medications? No Have you ever had an allergic or adverse reaction to Fentanyl or Versed? No Have you had a problem with sedation or anesthesia? (Waking up during procedure, extreme confusion after, etc.) No Do you have a diagnosis of Obstructive Sleep Apnea that requires the use of a c- pap machine? No Do you use an oxygen tank at home? No Do you use a rescue inhaler more than twice per day? (COPD, severe asthma) No Do you experience breathing problems when you lay flat for a period of time? No Do you take prescription narcotic pain medications, including suboxone or methodone? No SCHEDULING CONFIRMATIONS: Please note any and all parts of your conversation with the patient here. We offer all new patients an opportunity to have an appointment with one of our associate care providers to learn more about your upcoming procedure, ask questions and get answers. These appointmentsare offered via telehealth. Would you be interested in scheduling this appointment? (Only ask if NEW referral patient; skip this question if [facility] provider ordered the procedure.) No Is there any other information or concerns you would like to us to share with your care team in relation to your upcoming scheduled procedure? No You must have a responsible libertarian who will drive you to your procedure, stay on campus for the entire duration of your procedure, and drive you home from your procedure. Who will likely be your four horse hitch driver for the procedure? *Please Verify the height and weight, and adjust if height and/or weight have changed* Estimated body mass index is 25.34 kg/m?? as calculated from the following: Height as of 11/29/22: 154.9 cm (5' 1). Weight as of 08/09/22: 60.8 kg (134 lb 1.6 oz). Age:52 y.o. documented in this encounter Plan of Treatment Not on file documented as of this encounter Visit Diagnoses Not on filedocumented in this encounter Care Teams Lead Systems Analyst Relationship Specialty Start Date End Date Khushboo Arreola PA [address] [place] [id number] PCP - General Family Medicine 03/20/22 documented as of this encounter
--- OUTSIDE RECORDS SUMMARY | 2024-08-14 09:40 | XMS_ITS | Encounter Summary ---
Author Organization [facility] Address [facility] [place] [address] Care Team Providers Care Him Analyst Name Role Phone Khushboo Arreola Primary Care Provider Reason for Visit * Reason Comments Medication Refill Encounter Details Date Type Department Care Team (Late st Contact Info) Description 12/11/2023 Ref[place] [phone] Geovanna Espinal, ACCESS CONSULTANT [facility] [place] [address] Irritable bowel syndrome with diarrhea Social History [...] syndrome documented in this encounter Care Teams Him Analyst Relationship Specialty Start Date End Date Khushboo Arreola PA [address] [place] [id number] PCP - General Family Medicine 03/20/22 documented as of this encounter
--- OUTSIDE RECORDS SUMMARY | 2024-08-14 09:41 | XMS_ITS | Encounter Summary ---
Author Organization [facility] Address [facility] [place] [address] Care Team Providers Care Primary Substance Abuse Counselor Name Role Phone Khushboo Arreola Primary Care Provider Encounter Details Date Type Department Care Team (Latest Contact Info) Description 04/23/2023 7:22 AM EDT - 04/23/2023 11:59 PM EDT Hospital Encounter XRay at [address] [place] [address] Carina Negron APRN [facility] [place] [address] Diarrhea, unspecified type; Chronic nausea; Cyclic vomiting [...] Procedure Name Priority Date/Time Associated Diagnosis Comments XR FLUORO UPPER GI DOUBLE CONTRAST WWO DELAYED FILMS W KUB Routine 04/23/2023 9:19 AM EDT Diarrhea, unspecified type Chronic nausea Cyclic vomiting syndrome Tenesmus Constipation, unspecified constipation type Irritable bowel syndrome with diarrhea Bloating BRBPR (bright red blood per rectum) Colon polyposis Smoking Nausea and vomiting, unspecified vomiting type Early satiety documented in this encounter Results * XR Fluoro Upper GI Double Contrast wwo Delayed Films w KUB (04/23/2023 9:19 AM EDT) Anatomical Region Laterality Modality N/A Radio Fluoroscop y Impressions 04/23/2023 9:47 AM EDT Normal upper GI And small bowel follow-through Transit time was proximally 40 minutes the stomach emptied promptly. No evidence of gastric outlet obstruction I have personally reviewed the image(s) and the resident's interpretation and agree with the findings, Orin Smith MD at 04/23/2023 9:47 AM Thank you for letting us participate in the care of this patient. ??If you are a health care provider and have any questions regarding this report, please contact the number below. ??For patients who have questions please contact the health child care worker that requested your imaging first. ? Narrative 04/23/2023 9:47 AM EDT EXAMINATION: XR FLUORO UPPER GI DOUBLE CONTRAST WWO DELAYED FILMS W KUB CLINICAL HISTORY: early satiety, abdominal pain. Please assess for small bowel transit time, rings/strictures/hernias TECHNIQUE: Double contrast UGI was performed. Fluoroscopic spot films were obtained. Barium tablet with water was administered. Fluoro time: 2.75 minutes COMPARISON: None FINDINGS: Elastic Attacher Zigzag radiographs: Clear lung bases. Nondilated loops of small and large bowel. Mild stool burden in the rectum. No pneumobilia, pneumatosis or free air. No acute osseous or soft tissue abnormalities. Left lateral curvature of the lumbar spine, centered at L2-L3. Pelvic phleboliths. Exam images: The esophagus is normal in course and caliber, and is well distended on double contrast views. ??The mucosal pattern is normal. ?? The gastroesophageal junction is normally positioned. Esophageal peristalsis is normal. No gastroesophageal reflux was elicited with provocative maneuvers. The stomach is normal in course with normal mucosal pattern and folds. The stomach emptied promptly with no evidence of gastric outlet obstruction. The duodenal bulb is normal, as is the course of the duodenum. Barium tablet with water was administered and passed readily from the esophagus to the stomach. Pharynx and swallows were normal Small bowel transit time was approximately 40 minutes. Procedure Note Orin Smith MD - 04/23/2023 EXAMINATION: XR FLUORO UPPER GI DOUBLE CONTRAST WWO DELAYED FILMS W KUB CLINICAL HISTORY: early satiety, abdominal pain. Please assess for smallbowel transit time, rings/strictures/hernias TECHNIQUE: Double contrast UGI was performed. Fluoroscopic spot films were obtained.Barium tablet with water was administered. Fluoro time: 2.75 minutes COMPARISON: None FINDINGS: Elastic Attacher Zigzag radiographs: Clear lung bases. Nondilated loops of small and large bowel. Mild stoolburden in the rectum. No pneumobilia, pneumatosis or free air. No acute osseousor soft tissue abnormalities. Left lateral curvature of the lumbar spine, centeredat L2-L3. Pelvic phleboliths. Exam images: The esophagus is normal in course and caliber, and is well distended ondouble contrast views. The mucosal pattern is normal. The gastroesophageal junction is normally positioned. Esophageal peristalsis is normal. No gastroesophageal reflux was elicited with provocative maneuvers. The stomach is normal in course with normal mucosal pattern and folds.The stomach emptied promptly with no evidence of gastric outlet obstruction. The duodenal bulb is normal, as is the course of the duodenum. Barium tablet with water was administered and passed readily from theesophagus to the stomach. Pharynx and swallows were normal Small bowel transit time was approximately 40 minutes. IMPRESSION Normal upper GI And small bowel follow-through Transit time was proximally 40 minutes the stomach emptied promptly. No evidence of gastric outlet obstruction I have personally reviewed the image(s) and the resident's interpretationand agree with the findings, Orin Smith MD at 04/23/2023 9:47 AM Thank you for letting us participate in the care of this patient. If youare a health care provider and have any questions regarding this report,please contact the number below. For patients who have questions please contactthe health child care worker that requested your imaging first. Carina Negron H[facility]E IMG FLUORO ORDERABL ES documented in this encounter Visit Diagnoses Diagnosis [...] MAR Action Action Date Dose Rate Site barium sulfate (E-Z Disk) tablet 0-700 mg 0-700 mg, Oral, ONCE PRN, 1 dose, Starting on Sun04/23/23 at 0834, Until Sun04/23/23 at 0914, Per Protocol, Radiology Contrast, Routine Given 04/23/2023 9:14 AM EDT 700 mg barium sulfate (E-Z-HD) 98% oral liquid 0-120 mL 0-120 mL, Oral, ONCE PRN, 1 dose, Starting on Sun04/23/23 at 0834, Until Sun04/23/23 at 0835, Per Protocol, Radiology Contrast, Routine Given 04/23/2023 8:35 AM EDT 120 mLs barium sulfate (Ezpaque) 60% (w/v) oral liquid 0-710 mL 0-710 mL, Oral, ONCE PRN, 1 dose, Starting on Sun04/23/23 at 0834, Until Sun04/23/23 at 0905, Per Protocol, Radiology Contrast, Routine Given 04/23/2023 9:05 AM EDT 355 mLs documented in this encounter Care Teams Primary Substance Abuse Counselor Relationship Specialty Start Date End Date Khushboo Arreola PA [address] [place] [id number] PCP - General Family Medicine 03/20/22 documented as of this encounter
--- OUTSIDE RECORDS SUMMARY | 2024-08-14 09:41 | XMS_ITS | Encounter Summary ---
Author Organization [facility] Address [facility] [place] [address] Care Team Providers Care Test Fixture Designer Name Role Phone Khushboo Arreola Primary Care Provider Encounter Details Date Type Department Care Team (Latest Contact Info) Description 04/30/2023 Travel Social History Tobacco Use Types Packs/Day [...] on filedocumented in this encounter Care Teams Test Fixture Designer Relationship Specialty Start Date End Date Khushboo Arreola PA [address] [place] [id number] PCP - General Family Medicine 03/20/22 documented as of this encounter
--- OUTSIDE RECORDS SUMMARY | 2024-08-14 09:41 | XMS_ITS | Encounter Summary ---
[place] [address] Care Team Providers Care Travel Rn Or Name Role Phone Trevor Burton MD Primary Care Provider Encounter Details Date Type Department Care Team (Late st Contact Info) Description 10/16/2019 Telephone [place] [phone] Claire Rodney Social History Tobacco Use Types Packs/Day Years Used Date Smoking Tobacco: Never Assessed Sex and Gender Information Value Date Recorded Sex Assigned at Not on file Gender Identity Not on file Sexual Orientation Not on file documented as of this encounter Miscellaneous Notes * Telephone Encounter - Claire Rodney - 10/16/2019 1:42 PM EDT Called patient to change appt for 10/19 LVM 1st attempt documented in this encounter Plan of Treatment Not on file documented as of this encounter Visit Diagnoses Not on filedocumented in this encounter Care Teams Travel Rn Or Relationship Specialty Start Date End Date Trevor Burton MD [address] [place] [address] PCP - General General Internal Medicine 09/17/19 8/2 03/13 documented as of this encounter
--- OUTSIDE RECORDS SUMMARY | 2024-08-14 09:41 | XMS_ITS | Encounter Summary ---
Author Organization [facility] Address [facility] [address] Care Team Providers Care Hand Woodworking Sander Name Role Phone Khushboo Arreola Primary Care Provider Encounter Details Date Type Department Care Team (Latest Contact Info) Description 05/06/2023 Travel Social History Tobacco Use Types Packs/Day [...] on filedocumented in this encounter Care Teams Hand Woodworking Sander Relationship Specialty Start Date End Date Khushboo Arreola PA [address] [place] [id number] PCP - General Family Medicine 03/20/22 documented as of this encounter
--- OUTSIDE RECORDS SUMMARY | 2024-08-14 09:41 | XMS_ITS | Encounter Summary ---
[place] [address] Care Team Providers Care Vice President For Instruction Name Role Phone Khushboo Arreola Primary Care Provider [phone] Encounter Details Date Type Department Care Team (Late st Contact Info) Description 11/29/2022 Telephone [place] [phone] Nadira Iqbal Social History Tobacco Use Types Packs/Day Years Used Date Smoking Tobacco: Every Day Cigarettes Smokeless Tobacco: Never Sex and Gender Information Value Date Recorded Sex Assigned at Not on file Gender Identity Not on file Sexual Orientation Not on file documented as of this encounter Miscellaneous Notes * Telephone Encounter - Nadira Iqbal - 11/29/2022 11:29 AM EDT Called patient. She wants to wait till April to do the testing as she will have time off then. Sent to radiology for scheduling. documented in this encounter Plan of Treatment Not on file documented as of this encounter Visit Diagnoses Not on filedocumented in this encounter Care Teams Vice President For Instruction Relationship Specialty Start Date End Date Khushboo Arreola PA [address] [place] [id number] PCP - General Family Medicine 03/20/22 documented as of this encounter
--- OUTSIDE RECORDS SUMMARY | 2024-08-14 09:41 | XMS_ITS | Encounter Summary ---
Author Organization [facility] Address [address] [place] [address] Care Team Providers Care Director Medical Economics Name Role Phone Unknown, Provider Primary Care Provider Unava ilable Encounter Details Date Type Department Care Team (Late st Contact Info) Description 12/28/2008 Orders Only [facility] - [facility] ([facility] [address] [place] [address] Jer Burton MD [address] [place] [address] Social History Tobacco Use Types Packs/Day Years Used Date Smoking Tobacco: Never Assessed Comments Unknown Sex and Gender Information Value Date Recorded Sex Assigned at Not on file Legal Sex Female 18:14 EST Gender Identity Not on file Sexual Orientation Not on file documented as of this encounter Plan of Treatment Not on file documented as of this encounter Procedures Procedure Name Priority Date/Time Associated Diagnosis Comments HPV DETECTION, HIGH RISK TYPES Routine 12/28/2008 14:54 EDT CYTOPATHOLOGY Routine 12/28/2008 0:00 EDT documented in this encounter Results * HUMAN PAPILLOMA VIRUS DNA TEST (12/28/2008 14:54 EDT) Specimen Description Cervix, ThinPrep vial [facility] Result Negative for HPV types 16, 18, 31, 33, 35, 39, 45, 51, 52, 56, 58, 59, and 68. [facility] Report Status Final 01/06/2009 [facility] 12/28/2008 14:5 4 EDT 01/04/2009 14:54 EDT us Jer Burton MD MICROBIOLOGY - GENERAL ORDER BEKAH Final Result [facility] [address] [address] * CYTOPATHOLOGY (12/28/2008 0:00 EDT) Pathology Report: CYTOPATHOLOGY REPORT ? Reports generated via electronic interface contain original data; ? however they are lacking the format of the original report. ? Caution should be taken when reading/interpreti ng unformatted reports. ? Name: ? SULTANA GARCIA ? Accession #: ? [id number] ? : ? 1970 (Age: 38) ??F ?Collect Date: ? 12/28/2008 ? Location: ? [facility] ? Receive Date: ? 12/30/2008 ? Provider: ?JER FELIPEAU MD ? Copy to: ? Specimen/Source: ?Pap Test, Endocervix, ThinPrep Imaging System with ? manual evaluation ? Last Menstrual Period: ? 6/28/09 ? Other: ? [facility] - HPV testing requested regardless of diagnosis on current ThinPrep Pap ?? test. ? SPECIMEN ADEQUACY ? Satisfactory for Evaluation ? - transformation zone component present ? GENERAL CATEGORIZATION ? Negative for Intraepithelial Lesion or Malignancy ? INTERPRETATION ? Shift in suzanna present suggestive of bacterial vaginosis. ? Document reviewed and electronically signed by: ? Kalpana Iris, CT(ASCP) ? Report Date: ??01/04/2009 11:44 ? End of Report ? [facility] 12/28/2008 12/30/2008 us Jer Burton MD PATHOLOGY ORDERABLES Final R esult [facility] [address] [place] [address] documented in this encounter Visit Diagnoses Not on filedocumented in this encounter Care Teams Director Medical Economics Relationship Specialty Start Date End Date Unknown, Provider, PCP - General 12/29/08 documented as of this encounter
--- OUTSIDE RECORDS SUMMARY | 2024-08-14 09:41 | XMS_ITS | Encounter Summary ---
[place] [address] Care Team Providers Care Copra Processor Name Role Phone Khushboo Arreola Primary Care Provider Reason for Referral * Consultation (Routine) - Closed Specialty Diagnoses / Procedures Referred By Contac t Referred To Contact Gastroenterology Diagnoses Diarrhea, unspecified type Nausea and vomiting, unspecified vomiting type Liver function abnormality 2nd opn- diarrhea/ nausea and vomiting Khushboo Arreola PA [address] [place] [address] [facility] [address] [place] [address] Referral ID Status Reason Start Date Expiration Date V isits Requested Visits Authorized [id number] Closed Consult, Test & Treat PCP Updated and/or Approved 06/28/2022 06/28/2023 6 6 Encounter Details Date Type Department Care Team (Latest Contact Info) Description 06/28/2022 Transcribe Orders [facility] Incoming Referrals [phone] Khushboo Arreola PA [address] [place] [address] Diarrhea, unspecified type; Nausea and vomiting, unspecified vomiting type; Liver function abnormality Social History Tobacco Use Types Packs/Day Years Used Date Smoking Tobacco: Never Assessed Sex and Gender Information Value Date Recorded Sex Assigned at Not on file Gender Identity Not on file Sexual Orientation Not on file documented as of this encounter Plan of Treatment Scheduled Referrals Name Type Priority Associated Diagnoses Order Schedule Referral to Gastroenterology Outpatient Referral Routine Diarrhea, unspecified type Nausea And Vomiting, Unspecified Vomiting Type Liver function abnormality Ordered: 06/28/2022 documented as of this encounter Visit Diagnoses Diagnosis Diarrhea, unspecified type Nausea and vomiting, unspecified vomiting type Liver function abnormality Unspecified disorder of liver documented in this encounter Care Teams Copra Processor Relationship Specialty Start Date End Date Khushboo Arreola PA [address] [place] [id number] PCP - General Family Medicine 03/20/22 documented as of this encounter
--- OUTSIDE RECORDS SUMMARY | 2024-08-14 09:41 | XMS_ITS | Encounter Summary ---
[place] [address] Care Team Providers Care Zigzagger Name Role Phone Khushboo Arreola Primary Care Provider Reason for Referral * Diagnostic Test (Routine) - Closed Specialty Diagnoses / Procedures Referred By Jaya clark Referred To Contact Radiology Diagnoses Diarrhea, unspecified type Chronic nausea Cyclic vomiting syndrome Tenesmus Constipation, unspecified constipation type Irritable bowel syndrome with diarrhea Bloating BRBPR (bright red blood per rectum) Colon polyposis Smoking Nausea and vomiting, unspecified vomiting type Early satiety Procedures NM Gastric Emptying Scan Carina Negron APRN [facility] [place] [address] [place] [address] Referral ID Status Reason Start Date Expiration Date V isits Requested Visits Authorized [id number] Closed Specialty Service Requested 08/09/2022 02/07/2024 1 1 * Diagnostic Test (Routine) - Closed Specialty Diagnoses / Procedures Referred By Contirish t Referred To Contact Radiology Diagnoses Diarrhea, unspecified type Chronic nausea Cyclic vomiting syndrome Tenesmus Constipation, unspecified constipation type Irritable bowel syndrome with diarrhea Bloating BRBPR (bright red blood per rectum) Colon polyposis Smoking Nausea and vomiting, unspecified vomiting type Early satiety Procedures CT Angiogram Abdomen & Pelvis w Contrast (Generic) Carina Negron APRN [facility] [place] [address] [facility] [place] [address] Referral ID Status Reason Start Date Expiration Date V isits Requested Visits Authorized [id number] Closed Specialty Service Requested 08/09/2022 02/07/2024 1 1 * Diagnostic Test (Routine) - Closed Specialty Diagnoses / Procedures Referred By Jaya clark Referred To Contact Radiology Diagnoses Diarrhea, unspecified type Chronic nausea Cyclic vomiting syndrome Tenesmus Constipation, unspecified constipation type Irritable bowel syndrome with diarrhea Bloating BRBPR (bright red blood per rectum) Colon polyposis Smoking Nausea and vomiting, unspecified vomiting type Early satiety Procedures CT Enterography Carina Negron APRN [facility] [place] [address] [facility] [place] [address] Referral ID Status Reason Start Date Expiration Date V isits Requested Visits Authorized [id number] Closed Specialty Service Requested 08/09/2022 02/07/2024 1 1 Reason for Visit * Consultation (Routine) - Closed Specialty Diagnoses / Procedures Referred By Jaya clark Referred To Contact Gastroenterology Diagnoses Diarrhea, unspecified type Nausea and vomiting, unspecified vomiting type Liver function abnormality 2nd opn- diarrhea/ nausea and vomiting Khushboo Arreola PA [address] [place] [id number] [facility] [place] [address] Referral ID Status Reason Start Date Expiration Date V isits Requested Visits Authorized [id number] Closed Consult, Test & Treat PCP Updated and/or Approved 06/28/2022 06/28/2023 6 6 Encounter Details Date Type Department Care Team (Late st Contact Info) Description 08/09/2022 11:00 AM EST Office Visit Gastroenterology at [facility] [place] [address] Carina Negron APRN [facility] [place] [address] Diarrhea, unspecified type; Chronic nausea; Cyclic vomiting syndrome; Tenesmus; Constipation, unspecified constipation type; Irritable bowel syndrome with diarrhea; Bloating; BRBPR (bright red blood per rectum); Colon polyposis; Smoking; Nausea and vomiting, unspecified vomiting type; Early satiety Social History Tobacco Use Types Packs/Day Years Used Date Smoking Tobacco: Every Day Cigarettes Smokeless Tobacco: Never Tobacco Cessation:Ready to Q uit: Not Asked; Counseling Given: Not Answered Sex and Gender Information Value Date Recorded Sex Assigned at Not on file Gender Identity Not on file Sexual Orientation Not on file documented as of this encounter Last Filed Vital Signs Vital Sign Reading Time Taken Comments Blood Pressure 172/95 08/09/2022 11:07 AM EST Pulse 108 08/09/2022 11:07 AM EST Temperature - - Respiratory Rate - - Oxygen Saturation - - Inhaled Oxygen Concentration - - Weight 60.8 kg (134 lb 1.6 oz) 08/09/2022 11:07 AM EST Height 156.2 cm (5' 1.5) 08/09/2022 11:07 AM ES T Body Mass Index 24.93 08/09/2022 11:07 AM EST documented in this encounter Patient Instructions * Patient Instructions* Carina Negron APRN - 08/09/2022 11:00 AM EST It was nice to meet you today. The following orders were placed during our visit today: Orders Placed This Encounter Procedures ENDOSCOPY CASE REQUEST: EGD, UPPER GI ENDOSCOPY, COLONOSCOPY, DIAGNOSTIC Stool Culture Screen ([facility] [place]) C. Difficile Screen Giardia/Cryptosporidium Antigens ([facility] [place]APD/NL) CT Enterography CT Angiogram Abdomen & Pelvis w Contrast (Generic) NM Gastric Emptying Scan XR Fluoro Upper GI With Small Bowel Follow Thru Comprehensive metabolic panel (non-fasting) CBC (with Diff) TSH [place]otte Calprotectin, Stool IgA IgG Tissue transglutaminase, IgA For procedures that have been ordered please call :Endoscopy Scheduling at [phone] For imaging studies at the [facility], please call radiology for scheduling (numbers listed below). Main radiology scheduling line Direct phone numbers: CT, you can directly call: ultrasound, you can directly call: For blood work or stool studies ordered: these were sent to a facility outside of [facility],please call the facility to confirm they have been received in 2-4 business days prior to going. Please note: given the ongoing COVID-19 pandemic, there has been delays in the scheduling and completion of various investigative studies. We are working to improve this, and in the meantime, we appreciate your patience and cooperation. As the results come back from your various tests, I will only call you if they are abnormal (no news is good news!). Below I have included some basic information functional bowel disorders and ways you can address various GI symptoms from home. Sincerely, Carina Negron APRN Department of Gastroenterology and Hepatology [facility] Here is some information on the different procedures that may be ordered for you in GI: Endoscopy: this procedure is when we look at your Esophagus, stomach and beginning of small intestine called the duodenum. You will be sleepy/comfortable during this test, so you will require a ride home. We will take samples called biopsies to look for microscopic inflammation, diseases such as celiac disease/Eosinophilic esophagitis/Hoffman's esophagus/etc, and you will get a letter approximately 2 weeks after your procedure letting you know the results and next steps. If we are testing for celiac disease, you will need to eat gluten foods for 6-8 weeks prior to your endoscopy. This means 3-10 grams of gluten (1 slice of bread is 2g) per day. If you do not, there can be false negative results. Colonoscopy: this procedure looks at the large intestine and the exit of your small intestine (called the ileocecal valve). Commonly, biopsies can be taken for patients having symptoms to look for inflammatory conditions such as microscopic colitis, Crohn's disease, or Ulcerative colitis. Also if the straw hat plunger operator sees any polyps, they will be removed to see what kind of polyps they are. If biopsies or polyps are taken, you will get a letter approximately 2 weeks after your procedure letting you know the results and next steps.You will be sleepy/comfortable during this test, so you will require a ride home. This procedure also involves a prep the day before so that all of the stool is removed from your colon. This is important to avoid missing small polyps. Here are some of the imaging studies that can be ordered in GI: CTE: this is a CT scan that looks at the different organs and structures in your abdomen. It involves contrast dye. CT angio: this is a CT scan that looks at the blood vessels in the abdomen to see if there is narrowing or blockage of these vessels. Gastric Emptying Scan: this is done in radiology and involves eating foods that have markers in them that can be seen on the screen. It helps measure how long it takes food to leave the stomach. Small Bowel Follow through: this is done in radiology and involves swallowing liquids with special dye in them that can be seen on screen. This measures how long it takes for liquid to move through the small intestine to see if there is a transit delay. Xray: this is used to see if there is any air inside the abdomen or if there is a large stool burden. If ordered, it only needs to be done once and not repeated. *You will be given more instruction as needed by the scheduling team or nurses prior to your tests *All results will be discussed at your follow up appointment unless I am placing an order and/or itneeds to be addressed sooner. Cyclic Vomiting Syndrome: Information Handout for Patients and Primary Care Providers Nico Laura MD, CPC + Vince Zheng MD, LYNNE Alvarado Amato, TECHNICAL ASSISTANT + Jory Porter APRN [facility] What is Cyclic Vomiting Syndrome (CVS)? CVS is chronic disorder characterized by intermittent episodes of severe nausea and vomiting (and abdominal pain in some patients) The episodes typically last 1-5 days and are followed by prolonged periods without symptoms CVS can be associated with menses (periods), migraine headaches, diabetes mellitus, , and IBS Patients may have an ???awareness?? or ???aura?? indicating an impending (approaching) episode CVS is a functional gut disorder - the gut is structurally/anatomically normal but is not functioning properly due to abnormalities in the enteric (gut) nervous system and the central nervous system (brain and spinal cord) The exact cause of CVS is unclear but we suspect it is caused by a combination of a genetic factors, changes to the gut microbiota (intestinal bacteria) and environmental triggers. How common are these disorders and what is the impact? CVS is considered to be a rare disorder but is increasingly recognized as a cause for chronic nausea and vomiting This disorder can have a significant impact on quality of life Unpredictability and severity of episodes can affect patients' ability to do the things that are important in their lives Untreated CVS patients often require frequent presentations to the Emergency department What are the phases of CVS? CVS is generally considered to have four distinct phases - Prodromal phase (just before acute phase - often with ???awareness?? of impending episode) Acute phase (nausea and vomiting) Recovery phase Inter-episodic phase (period of wellness between episodes) These phases are important to remember as each phase has specific treatments and treatment goals What is the prognosis and overall treatment goals? CVS is unfortunately a chronic disorder with no known cure Symptoms may gradually resolve is a small proportion of patients but fpc symptoms are expected in most patients. Ultimately we hope that you are able to achieve prolonged periods of stability with a decrease in the frequency and severity of episodes We believe the most important treatment goal is to help you improve your overall quality of life. For most patients this means doing the things that are important in your life despite having symptoms. This goal is typically achieved by increasing your understanding of this disorder and developing coping and management skills. Remember, for most patients complete resolution of all symptoms is NOT a realistic goal. Are there any factors that predict poor response to treatment? Yes, medical studies have shown that patients with certain risk factors often have refractory symptoms. This includes the following: Poorly controlled anxiety and depression Poorly controlled irritable bowel syndrome Poorly controlled migraine headaches Chronic opioid usage Chronic cannabis usage If any of these factors apply to you it is unlikely your CVS will be improve without addressing them. Make sure you address these factors with your medical team. What are the specific treatment options by phase? Specific treatments broken down by CVS phase are as follows: Prodromal phase Early recognition of impending episode Rapid initiation of ???abortive therapy?? Acute phase Rapid termination of nausea, vomiting and pain with ???supportive therapy?? Prevention of complications such as dehydration with IV fluids Reduction in frequency of Emergency department visits Recovery phase Rapid return to wellness Inter-episodic phase Prevention of next episode by ???general measures?? and ???prophylactic therapies What are general measures for CVS? Several lifestyle and dietary factors can increase the frequency and severity of CVS episodes These lifestyle factors include the following: Inadequate sleep Prolonged fasting Dehydration Stress Depression/anxiety Some patients are able to identity dietary triggers for episodes such as the following: Chocolate Cheese Wine Monosodium glutamate (MSG) What are options for ???Abortive Therapy?? ? Several medication options exist for abortive therapies. You should discuss these options with yourmedical providers. In general these medications fall into one of the following categories: Anti-migraine medications Anti-emetic medications Anti-histamine medications Also consider non-medical therapies such as relaxing or sleeping in a quiet dark room if possible Consumption of sugary foods has been suggested to benefit pediatric patients with AVS but medical studies in adults is lacking Also try to ensure you are well hydrated in case you do progress to the acute phase What are options for ???Supportive Therapy?? ? Several medication options exist for supportive therapies. You should discuss these options with your medical providers. In general these medications fall into one of the following categories: Anti-migraine medications Anti-emetic medications Anti-histamine medications Sedation medications Patients should seek care in the Emergency department if they are unable to control their symptoms and/or become dehydrated. We generally recommend that opioids to be avoided if possible as there is a high risk of addiction and/or dependence. Every effort should be made to use non- opioid alternatives. What are options for ???Prophylactic Therapy?? ? These measures are generally considered to be the most important area of treatment as the main goalis to decrease the frequency of episodes. You should discuss these medical options with your medical providers. In general these medications fall into one of the following categories: Anti-depressant medications Anti-seizure medications Anti-migraine medications Please note: GI specialists often use low dosages of these medications to provide beneficial effects on the enteric (gut) nervous system (i.e. NOT to treat depression or seizure disorders, etc.) Also consider non-medical options to prevent episodes such as the following: Carefully following general measures for CVS Avoiding dietary triggers L-carnitine, riboflavin and coenzyme Q10 supplements In general we do not recommend continuous (daily) usage of anti-emetics or other abortive therapies. group home daily usage of these medications has not been studied and is likely of minimal benefit. The above prophylactic measures are considered to be safer and more effective. What about Cannabis? Many patients ask about the role of medical cannabis (marijuana). Some patients have reported benefit of CVS symptoms with cannabis. However, potential benefits of cannabis for CVS have not been well studied in the medical literature. In the contrary, medical studies have convincingly shown that cannabis may actually worsen symptomsin some patients with CVS. At this point we generally do NOT recommend using medical cannabis to treat CVS. Disclaimer This information is intended for education purposes only It is not meant to replace direct patient-provider care We recommend sharing this document with your Primary Care Provider All medications should be used under the supervision of your Gastroenterology provider and/or Primary Care Provider Authors are not liable for misuse/misinterpretation of this information Patient resources Cyclic Vomiting Syndrome Association (CVSA http://cvsaonline.org/ References Daryl Clark et al. Guidelines on management of cyclic vomiting syndrome in adults by the [place] Neurogastroenter[employer]ility Society and the Cyclic Vomiting Syndrome Association. Neruogastroenterology & Motility. 2019;31(Suppl. 2):s20442 Functional Bowel Disorders: Information Handout for Patients and Primary Care Providers Nico Laura MD, CPC + Vince Zehng MD, LYNNE Bryant Sousa APRN + Jory Porter APRN + Carina Negron APRN [facility] What are functional bowel disorders? These are the most common type of gastrointestinal disorders in the [facility] The most common functional bowel disorder in the [place] is irritable bowel syndrome (IBS) Irritable bowel syndrome affects the lower GI tract and can cause bloating, abdominal pain, diarrhea, and constipation Functional dyspepsia (FD) affects the upper GI tract and can cause bloating, burping, heartburn, nausea, fullness and stomach discomfort In functional disorders the gut is structurally/anatomically normal but is not functioning properlydue to abnormalities in the enteric (gut) nervous system Two mechanisms - heightened sensitivity of the gut to normal sensations (sensory nerves) and abnormal gut motility (motor nerves) These disorders are caused by a combination of a genetic factors, changes to the gut microbiota (intestinal bacteria) and environmental triggers How common are these disorders and what is the impact? 15-20% of general [place] population has IBS or FD or both 2nd most common cause for lost work days (after common cold) in [place] Estimated $30 billion dollar cost to [place] economy per year These disorders can have a significant impact on quality of life How is the diagnosis made? The diagnosis of a functional disorder is NOT a ???diagnosis of exclusion?? (common misconception) Investigations may be necessary to look for other disorders (such as celiac disease) if the diagnosis is unclear Work-up may include history (description of symptoms), physical exam, bloodwork, stool studies, diagnostic imaging and endoscopy What is the prognosis? Functional bowel disorders are unfortunately chronic disorders and often have a major impact on patient quality of life, function, and relationships Symptoms may gradually resolve is a small proportion of patients (highest rate in patients with immediate onset of symptoms after infection); fpc symptoms are expected in most patients however Intermittent exacerbations (i.e. ???flares?? ) are common and may be caused by stress, infections, antibiotic exposure, and lack of adherence to treatment plans When should a patient be re-evaluated? Patients with stable symptoms do NOT need episodic re-evaluation Subtle changes in symptoms and symptom flares are common Patients should be re-evaluated if they have progression or dramatic changes in symptoms, severe abdominal pain, swallowing difficulties, unexplained weight loss, anemia (low blood counts), or bleeding If you have concerns be sure to talk to your doctor What are the goals of therapy? Ultimately we hope that you to able to achieve prolonged periods of stability with minimal daily symptoms and have a decrease in the frequency/severity of ???flares?? However, we believe the most important goal is to help you improve your overall quality of life. For most patients this means doing the things that are important in your life despite having symptoms. This is generally achieved by helping you develop coping skills and helping you achieve a greater understanding of your disorder. Remember, generally complete resolution of symptoms is NOT a realistic goal. How do I use this information? Talk to you primary care provider and/or local straw hat plunger operator and share this document. Treatment of functional disorders is a team effort! Set realistic goals! Remember it is unlikely that any one measure will completely eliminate all symptoms ???Start low and go slow?? with all measures to avoid potential side effects Do ONE measure at a time - add measures as needed in a ???step-marinelli fashion?? - this will help determine if a particular measure is helpful or not Stay on any measure continuously for at least 4-6 weeks prior to assessing whether or not it is helping (improvements are often slow to occur) After an adequate trial ask yourself if the benefit is worth continuing the treatment Remember there are a limited number of treatment options available. We want to be absolutely sure that a measure is not effective or intolerable before stopping it and considering other options Often patients will need several ???layers?? or ???steps?? of therapy - finding the right combination for you takes time and patience We specifically recommend all patients to do ALL lifestyle and dietary measures AND try using Metamucil (or other psyllium fiber supplement) and probiotics together - this approach benefits most patients OTC ([id number]) medications can be used for ongoing bothersome symptoms as listed below Your provider (PCP or local Gastroenterology provider or [facility] provider) may decide to use prescription medications if you have ongoing symptoms despite strict adherence to lifestyle and dietary measures and OTC medications Your provider will give you advice on treatments but it is your responsibility to work on these measures to improve your symptoms. Lack of adherence to recommendations is one of the most common causefor ongoing symptoms. If symptoms are controlled try easing back or stepping down on measures - remember the main goal isto improve quality of life (not necessarily eliminate symptoms). Non-Pharmacologic General Treatments Lifestyle measures Many lifestyle factors can worsen IBS symptoms However, IBS is not caused by these factors (common misconception) These lifestyle factors include the following: Inadequate sleep Weight gain Inadequate exercise Stress Depression/anxiety - this should be brought up to your Primary Care Provider (if left untreated it is unlikely the functional bowel disorder will improve) Dietary measures Trigger food avoidance - you should re-introduce foods once symptoms settle as overly restrictive diet can be unhealthy and even harmful Fatty foods, spicy foods, alcohol, and caffeine can worsen symptoms Consider a 2 week dairy-free trial for possible lactose-intolerance Your PCP or GI provider can refer you to a dietitian to discuss specialized diets. The overall dietary goal is to allow you to have a well-balanced and nutritious diet Fiber and Fluid Adequate fiber and fluid intake is essential for optimal functioning of the human digestive tract Aim for a fluid intake goal of 8-10 glasses of water a day (caffeine and alcohol count as minus onein calculation) Aim for a fiber intake goal of 30 grams per day - some patients may require more or less Increase fiber by 5 grams per week (remember ???start low and go slow?? ) Fiber can be from multiple dietary sources but supplemental is often helpful Fiber intake should include psyllium fiber; this is the type of fiber used in research studies for treatment of functional disorders Sources of psyllium include All-Bran psyllium buds, Metamucil, Konsyl, bulk psyllium ([place] stores and [place] stores) Specifically we recommend starting Metamucil or Konsyl at a low dosage - start at one teaspoon a day for one week then gradually increase by one teaspoon per week until no further benefit is achieved. Some patients may get bloating when they start a fiber supplement. This generally goes away after 1-2 weeks of daily therapy. Try backing off to a lower dose or trying an alternate version (such as sweetener-free Metamucil) If persistent issues try Citrucel (methylcellulose) as an alternate fiber supplement Probiotics Measures aimed at improving the microbiome such as probiotics are a promising area but convincing medical evidence is still lacking Rjlg-lnk-gwnxcys supplements including probiotics are not typically evaluated by FDA. The quality and even safety is often unclear and many products (despite being very expensive) actually do not contain any active ingredients at all! Live-culture yogurts, kombucha, sauerkraut and other dietary sources may help improve your microbiome Align, TuZen, and Visbiome are the three probiotics that are supported by medical research to have benefit for IBS Florastor has been shown to decrease antibiotic-associated diarrhea and post- infectious diarrhea BioK Plus has been shown to decrease antibiotic-associated diarrhea and antibiotic-related infections Jghd-eoz-Euazfbm Medications for Functional Gut Disorders Based on Symptoms Diarrhea Loperamide (Imodium) should be considered first for mild and intermittent symptoms - start with small doses and take several hours before needed (or even before bed) (it is generally considered safe for long-term use) Constipation Patients with mild constipation can use laxatives ???as needed?? (in other words, if you feel constipated or haven't had a regular bowel movement). However, patients with more severe constipation generally need laxatives on a regular schedule (every day or every second day for example). This is called ???maintenance therapy?? . PEG 3350 (Miralax) is a stool softener that is safe for long term acute care registered nurse usage (no risk of dependency) andthe dosage can be adjusted to achieve 1-2 soft bowel movements per day; you can take a capful (17g)twice daily if needed Milk of magnesia and lactulose are alternate stool softeners that are generally safe for regular use in most patients (you should ask your provider first). Bisacodyl (Dulcolax) and senna (Senokot) are stimulant laxatives for occasional use only as they may lead to dependency with regular long-term use. Enemas and bowel preparations (e.g. Colyte or Golytely) can be used to treat severe stool impaction---- this is called ???rescue therapy?? . Drink 2 litres in 4 hours in the evening then take another 2 litres over 4 hours the next morning. Another option is to mix up 14 capfuls of Miralax with 64 oz of Gatorade. After rescue therapy immediately begin aggressive ???maintenance therapy?? with the therapies above. Bloating/Pain Ensure constipation adequately treated - impacted stool can create a partial obstruction and contribute to pain Peppermint oil may also be useful; a capsule form exists as well (IBgard) Simethicone (Gas-X) can be helpful for occasional usage for ???gas spasms?? Acetominophen (Tylenol) is safest analgesic (pain killer) on the gut NSAIDs (e.g. ibuprofen) can cause gut irritation/inflammation - it's best to avoid or use in low doses only Medical cannabis has been used to treat various chronic pain disorders; it has been reported to benefit some patients with pain but has not be rigorously studied and may actually worsen symptoms in some patients with functional disorders. At this point we generally do NOT recommend using medical cannabis to treat functional disorders AVOID narcotics/opioids as they typically make symptoms much worse and there is a risk of addictionand/or dependence Exercise, hot-water bottle/heating pad, warm bath/shower, and warm beverages are also good treatments for painful bloating episodes Heartburn/Nausea/Vomiting/Dyspepsia Acid reducing medications such as proton-pump inhibitors (PPIs) and H2 blockers may be helpful especially if you have gastroesophageal reflux disease (GERD) Often a combination of anti-nausea medications (npxr-uqs-ajfoqca or prescription) works better thanhigh doses of only one medication A herbal product called STW5 (Iberogast) is supported by some studies to help dyspepsia but data onlong-term effectiveness and safety is limited L-carnitine and coenzyme Q10 supplements have been reported to be beneficial to some patients with chronic nausea and vomiting If using cannabis (recreational or medical) consider stopping for at least two weeks (ideally a full month). While cannabis has been reported to help some patients with nausea it may actually be contributing to symptoms. Disclaimer This information is intended for education purposes only It is not meant to replace direct patient-provider care All medications should be used under the supervision of a Gastroenterology provider or Primary CareProvider Authors are not liable for misuse/misinterpretation of this information Patient Resources [employer] https://www.gastro.org/practice-guidance/sa-zppbcaf-zvrdhv/ topic/nwxemvgjx-csmfs-adtmoiqw-ibs Badgut.org https://badgut.org/information-centre/l-y-skjehniww-topics/ibs/ AboutIBS.org https://www.aboutibs.org/ Uptodate.com https://www.Jive Biketodate.com/contents/ilzgprzup-wrhuh-hknbmwrx-zbsqis-ihc-bzytzg documented in this encounter Progress Notes * Carina Negron APRN - 08/09/2022 11:00 AM EST Chief Complaint: Sultana Nicholas is a 51 y.o. patient referred for consultation by Dr. Arreola for No chief complaint on file. History of Present Illness: 51 y.o. female with nausea/vomiting and diarrhea, second opinion evaluation. PMH: smoker (cigarrette). She has been followed by [facility] for these symptoms and has hadthem for [...] weeks ago Past Therapies: Colestipol: not helpful Lifestyle NSAID use: avoids Caffeine/Soda/Artificial Sugar: 1 cup coffee/day Diet: recommended avoiding red meats (pcp recommendation) Depression/Anxiety/Stress: denies Work: [employer], has missed 2 weeks of work recently Laboratory studies, imaging, and procedures (my review of prior records): 05/2019 colonoscopy: transverse colon at 65cm with moderately active colitis and architectural dissaray 08/2019 colonoscopy: polyps, prominent lymphoid aggregate 11/2019: polyps 04/2021 EGD: 2cm hiatal hernia, otherwise normal Fecal calprotectin normal at 64 on last check Review of systems: 14-system ROS reviewed and negative except as above Medications: Outpatient Medications Prior to Visit Medication Sig Dispense Refill ??? calcium polycarbophil (FIBERCON ORAL) Take by mouth daily. ??? pantoprazole EC (Protonix) 40 mg Tablet, Delayed Release (E.C.) TAKE 1 TABLET BY MOUTH EVERY DAY 30 MINUTES BEFORE SUPPER No facility-administered medications prior to visit. Allergies: has No Known Allergies. Past Medical History: has no past medical history on file. There is no problem list on file for this patient. Past Surgical History: has no past surgical history on file. Family History: family history is not on file. Social History: reports that she has been smoking cigarettes. She has been smoking an average of 1 pack per day. She has never used smokeless tobacco. Physical Exam: VITAL SIGNS: BP (!) 172/95 (BP Location (NBP): Left arm, Patient Position: Sitting, BP Cuff Sizes: Adult (25-34 cm)) Pulse (!) 108 Ht 156.2 cm (5' 1.5) Wt 60.8 kg (134 lb 1.6 oz) BMI 24.93 kg/m?? BMI: Body mass index is 24.93 kg/m??. Gen: nad, normal body habitus Eyes: no scleral icterus CV: rrr, no m/r/g, radial pulse 2+, no pedal edema Pulm: ctab, normal respiratory effort GI: soft without masses, nontender, nondistended, normoactive bowel sounds, no hernias Skin: warm, dry, no rashes, no induration Neurologic: intact to light touch Psych: appropriate affect, a+ox3 Questionnaire: No flowsheet data found. Assessment/Plan: Ms. Nicholas is a 51 y.o. patient here for second opinion evaluation of chronic nausea/vomiting anddiarrhea for the past 5 years. Patient description of symptoms resembles CVS and IBS-D. There was apossibility of IBD on biopsies during one transverse colon biopsy in 2019 at 65cm, but this has notbeen seen since then. Additionally, the patient has polyposis, requiring frequent colonoscopies formanagement. Plan for EGD/colonoscopy with biopsies, serology, stool studies, CT angio/mesenteric doppler, UGI/SBFT, GES for evaluation of symptoms and rule out other etiologies such as IBD, microscopic colitis, gastric erosions/ulcers, GERD, stricture/SBO, mesenteric ischemia, celiac disease, etc contributing to symptoms. Serology/stool studies will be sent to local facility. Imaging studies will be completed at [facility]. If patient diagnosis of CVS and IBS-D is confirmed, patient might find dual benefit from amitriptyline for neuromodulator therapy of these conditions. It is encouraging that the patient has not experienced diarrhea in the past 2 weeks since starting the fiber supplement. We discussed continuing thefiber supplement while completing testing. Finally, the patient mentioned multiple episodes of difficulty with inspiration following episode of coughing, worrisome of COPD, especially with smoking history. We discussed when to present to ER/Urgent care, otherwise patient should follow up with PCP for PFT and/or consideration of starting medication therapy. Diagnostics: -egd/colonoscopy IVCS and biopsies -serology, stool studies -CT angio/mesenteric doppler -GES/UGI/SBFT Therapeutics: -continue fiber supplement -consider trying L-carnitine or CoQ10 supplements (some patients find this beneficial for CVS) -continue pantoprazole -recommend smoking cessation: patient declined at this time -follow up with PCP for likely COPD -zofran PRN during cycles of vomiting -consider trial of sumatriptan for abortive therapy -To Be prescribed and managed by PCP: Neuromodulator therapy (to be tried for at least 90 days before adjusting dose or moving to next agent, titrate dose as needed for patient response) Step 1 Amitriptyline 10mg qHS, goal is 75-100mg Step 2 Nortriptyline 10mg qHS, goal 75-100mg Step 3 second line agents for CVS such as topiramate (100 mg), zonisamide (400 mg), and??levetiracetam (1000 mg) -consider trial of fiber capsules and colestipol if diarrhea returns -Review AVS for recommendations on functional bowel disorders and techniques to address common GI symptoms. Trial each for at least 30 days. At the end of 30 days, if it is partially/totally effective for symptoms, keep using and try next agent. If not effective at all, stop using and try next recommendation. -continue to follow up with PCP and other healthcare providers regarding comorbid concerns -all medication refill requests should be through PCP -When to go to ER for urgent evaluation: new/severe abdominal/chest pain, fevers, inability to maintain PO hydration or manage secretions, feeling like food is stuck in chest >1-2 hours, large amounts of blood/black tarry stools, loss of consciousness, etc We discussed that complete symptom relief may not be a fully achievable goal for this chronic condition, but that improvement in quality of life, healthy days at work and family functions, and also general symptom improvement may be more reasonable goals. We discussed that treatments should be tried individually and for periods of at least 4-8 weeks to truly assess symptom response. I did my bestto answer questions to the fullest ability. We discussed that recommended treatments should be tried individually for at least three months at a time to truly assess for a meaningful response, or as long as tolerated, before changing therapy. RTC 3 weeks after testing is complete with motility MARCELLA to further consolidate the GI care plan forthe patient's local team. Due to the consultative nature of our practice, the patient should continue to work with Khushboo Arreola as the primary point of contact for urgent issues, medication refillsand adjustments as needed for continuity of care purposes in between visits to our center based on the recommendations above. TIME SPENT WITH PATIENT I spent 50 minutes face to face with the patient. 50 minutes were spent on counseling and discussion as of the above during this telemedicine visit. Approximae time in review of records and documentation 30 minutes. Approximate total time devoted to this single encounter on the day of the encounter: 80 minutes Carina Negron APRN [facility] [place] [phone] documented in this encounter Plan of Treatment Scheduled Orders Name Type Priority Associated Diagnoses Orde r Schedule ENDOSCOPY CASE REQUEST: EGD, UPPER GI ENDOSCOPY, COLONOSCOPY, DIAGNOSTIC Procedures Routine Diarrhea, unspecified type Chronic nausea Cyclic vomiting syndrome Tenesmus Constipation, unspecified constipation type Irritable bowel syndrome with diarrhea Bloating BRBPR (bright red blood per rectum) Colon polyposis Smoking Nausea and vomiting, unspecified vomiting type Early satiety Ordered: 08/09/2022 documented as of this encounter Results * CT Enterography (05/31/2023 [...] who have questions please contact the health after school caregiver that requested your imaging first. ? Electronically signed by: Nima Parrish MD, [facility] ([phone]), at 05/31/2023 11:00 PM Narrative 05/31/2023 11:00 PM EST EXAMINATION: CT [...] patients who have questions please contactthe health after school caregiver that requested your imaging first. Electronically signed by: Nima Parrish MD, [facility]([phone]), at 05/31/2023 11:00 PM Carina Negron TECHNICAL ASSISTANT IMG CT ORDERABLES * NM Gastric Emptying Scan (05/07/2023 12:31 [...] who have questions please contact the health after school caregiver that requested your imaging first. ? Electronically signed by: Msiha Merino MD, [facility] ([phone]), at 05/07/2023 1:38 PM Narrative 05/07/2023 1:38 [...] patients who have questions please contactthe health after school caregiver that requested your imaging first. Carina Negron TECHNICAL ASSISTANT IMG NM ORDERABLES * Calprotectin, Stool (05/07/2023 10:21 AM EDT) Calprotectin, Stool <30 <=79 mcg/g [facility] Comment: Calprotectin Concentration ? Interpretation ? < 80 mcg/g ?Normal ? 80 ? 160 mcg/g ?Borderline ? >160 mcg/g ?Elevated Stool 05/07/2023 10:2 1 AM EDT 05/07/2023 11:02 AM EDT Narrative Resulting Agency Comment Spec In Lab Carina Negron TECHNICAL ASSISTANT BODY FLUIDS AND STO OLS ORDERABLES Performing Organization Address [facility]/ZIP Co de Phone Number [facility] [place] [address] * Giardia/Cryptosporidium Antigens ([facility]/CGP/APD/[facility]) (05/06/2023 3:30 PM EDT) Giardia Antigen Negative Negative [facility] Comment:Examination for othe r intestinal parasites requires foreign travel history. Cryptosporidium Antigen Negative Negative [facility] Stool 05/06/2023 3:30 PM EDT 05/07/2023 10:27 AM EDT Narrative Resulting Agency Comment Spec In Lab Carina Negron TECHNICAL ASSISTANT MICROBIOLOGY - GENE RAL ORDERABLES Performing Organization Address City/[facility]/ZIP Co de Phone Number [facility] [place] [address] * CT Angiogram Abdomen & Pelvis w Contrast (Generic) (04/30/2023 12:28 PM EDT) Anatomical Region Laterality Modality Abdomen, Pelvis Computed Tomogra phy Impressions 04/30/2023 3:26 PM EDT Widely patent mesenteric arterial and venous vasculature. ??No CT evidence of mesenteric ischemia. Thank you for letting us participate in the care of this patient. ??If you are a health care provider and have any questions regarding this report, please contact the number below. ??For patients who have questions please contact the health after school caregiver that requested your imaging first. ? Electronically signed by: Jefferson Lino DO, [facility] ([phone]), at 04/30/2023 3:26 PM Narrative 04/30/2023 3:26 PM EDT EXAMINATION: CT ANGIOGRAM ABDOMEN AND PELVIS W CONTRAST (GENERIC) CLINICAL HISTORY: postprandial abdominal pain, evaluate for mesenteric ischemia. TECHNIQUE: Helical CT angiogram of the abdomen and pelvis following the intravenous administration of contrast. The patient received 60 mL Omnipaque 350 intravenous contrast. Maximum intensity projection (MIP) were reformatted. Multiplanar images were reviewed and 3-D images were generated on an independent workstation. COMPARISON: There is no similar prior examination provided for comparison. FINDINGS: Appliance Line Assembler Images: Noncontributory. VASCULAR FINDINGS Abdominal aorta: No stenosis or aneurysm. Celiac: No stenosis. SMA: No stenosis. Right renal artery: No stenosis. Left renal artery: No stenosis. NICK: No stenosis. Right: Common iliac artery: No stenosis. Internal iliac artery: No stenosis. External iliac artery: No stenosis. Common femoral artery: No stenosis. Left: Common iliac artery: No stenosis. Internal iliac artery: No stenosis. External iliac artery: No stenosis. Common femoral artery: No stenosis. Venous structures: IVC: Widely patent. The superior mesenteric, splenic, and portal veins are patent. The hepatic veins are patent. ??The renal veins are patent. NON-VASCULAR FINDINGS Lower chest: Visualized structures within the inferior thorax within normal limits. Liver: Normal. Bile ducts: Normal. Gallbladder: The gallbladder is contracted, limiting evaluation. Pancreas: Normal. Spleen: Normal. Adrenals: Normal. Kidneys: There are fluid attenuating cyst in the right kidney, the largest of which is in the upper pole measuring 30 mm. ??The ureters image normally. Urinary Bladder: The urinary bladder is collapsed, limiting evaluation. Lymph Nodes: There are no pathologically enlarged lymph nodes. Bowel: Limited evaluation of the distal esophagus is unremarkable. ??The stomach is distended with food stuffs. ??The duodenum is normal in course and caliber. The remainder of the small bowel is within normal limits. ??The ileocecal valve is within normal limits. ??A normal collapsed appendix is present in the right lower quadrant. ??The large bowel is within normal limits. Peritoneum and retroperitoneum: No hemorrhage. No pneumoperitoneum. No fluid collection or mesenteric inflammation. Abdominal wall: There is a small fat-containing umbilical hernia. Reproductive organs: The uterus is retroverted. ??Limited evaluation of the adnexa is unremarkable Osseous structures: There is a degenerative convex right scoliosis of the thoracolumbar spine. ??There are associated mild degenerative changes visualized spine with endplate sclerosis and osteophyte formation. ??There is mild multilevel facet arthropathy. Procedure Note Jefferson Lino, DO - 04/30/2023 EXAMINATION: CT ANGIOGRAM ABDOMEN AND PELVIS W CONTRAST (GENERIC) CLINICAL HISTORY: postprandial abdominal pain, evaluate for mesentericischemia. TECHNIQUE: Helical CT angiogram of the abdomen and pelvis following the intravenous administration of contrast. The patient received 60 mLOmnipaque 350 intravenous contrast. Maximum intensity projection (MIP) werereformatted. Multiplanar images were reviewed and 3-D images were generated on anindependent workstation. COMPARISON: There is no similar prior examination provided forcomparison. FINDINGS: Appliance Line Assembler Images: Noncontributory. VASCULAR FINDINGS Abdominal aorta: No stenosis or aneurysm. Celiac: No stenosis. SMA: No stenosis. Right renal artery: No stenosis. Left renal artery: No stenosis. NICK: No stenosis. Right: Common iliac artery: No stenosis. Internal iliac artery: No stenosis. External iliac artery: No stenosis. Common femoral artery: No stenosis. Left: Common iliac artery: No stenosis. Internal iliac artery: No stenosis. External iliac artery: No stenosis. Common femoral artery: No stenosis. Venous structures: IVC: Widely patent. The superior mesenteric, splenic, and portal veins are patent. The hepatic veins are patent. The renal veins are patent. NON-VASCULAR FINDINGS Lower chest: Visualized structures within the inferior thorax withinnormal limits. Liver: Normal. Bile ducts: Normal. Gallbladder: The gallbladder is contracted, limiting evaluation. Pancreas: Normal. Spleen: Normal. Adrenals: Normal. Kidneys: There are fluid attenuating cyst in the right kidney, the largestof which is in the upper pole measuring 30 mm. The ureters image normally. Urinary Bladder: The urinary bladder is collapsed, limiting evaluation. Lymph Nodes: There are no pathologically enlarged lymph nodes. Bowel: Limited evaluation of the distal esophagus is unremarkable. Thestomach is distended with food stuffs. The duodenum is normal in course andcaliber. The remainder of the small bowel is within normal limits. The ileocecalvalve is within normal limits. A normal collapsed appendix is present in theright lower quadrant. The large bowel is within normal limits. Peritoneum and retroperitoneum: No hemorrhage. No pneumoperitoneum. Nofluid collection or mesenteric inflammation. Abdominal wall: There is a small fat-containing umbilical hernia. Reproductive organs: The uterus is retroverted. Limited evaluation ofthe adnexa is unremarkable Osseous structures: There is a degenerative convex right scoliosis ofthe thoracolumbar spine. There are associated mild degenerative changesvisualized spine with endplate sclerosis and osteophyte formation. There is mild multilevel facet arthropathy. IMPRESSION Widely patent mesenteric arterial and venous vasculature. No CT evidenceof mesenteric ischemia. Thank you for letting us participate in the care of this patient. If youare a health care provider and have any questions regarding this report,please contact the number below. For patients who have questions please contactthe health after school caregiver that requested your imaging first. Electronically signed by: Jefferson Lino DO, [facility]([phone]), at 04/30/2023 3:26 PM Carina Negron APRN IMG CT ORDERABLES * Tissue transglutaminase, IgA (04/30/2023 11:18 AM EDT) TTG IgA Ab 1.5 <=10.0 u/ml [facility] Comment: Negative: ??<7 units/mL Indeterminate: 7-10 units/mL Positive: ??>10 units/mL Blood 04/30/2023 11:1 8 AM EDT 04/30/2023 12:01 PM EDT Narrative Resulting Agency Comment Spec In Lab Carina Negron TECHNICAL ASSISTANT IMMUNOLOGY ORDERABL ES Performing Organization Address City/[facility]/ZIP Co de Phone Number [facility] [place] [address] * IgG (04/30/2023 11:18 AM EDT) Immunoglobulin G 879 700 - 1,600 mg/dL [facility] Comment: Pediatric Reference Intervals obtained from the Caliper Reference Interval project. http://www.Lodge[employer].ca/caliperproject/index.html Blood 04/30/2023 11:1 8 AM EDT 04/30/2023 11:31 AM EDT Narrative Resulting Agency Comment Spec In Lab Carina Negron TECHNICAL ASSISTANT CHEMISTRY ORDERABLE S Performing Organization Address City/[facility]/ZIP Co de Phone Number [facility] [place] [address] * IgA (04/30/2023 11:18 AM EDT) IgA 271 70 - 400 mg/dL [facility] Blood 04/30/2023 11:1 8 AM EDT 04/30/2023 11:31 AM EDT Narrative Resulting Agency Comment Spec In Lab Carina Negron TECHNICAL ASSISTANT CHEMISTRY ORDERABLE S Performing Organization Address City/[facility] Co de Phone Number [facility] [place] [address] * TSH [place] (04/30/2023 11:18 AM EDT) Thyroid Stimulating Hormone 1.71 0.27 - 4.20 mcIU/mL [facility] Comment: Reference Interval (mcIU/mL): Females: ??First Trimester: 0.23-3.88 ??Second Trimester: 0.22-3.90 ??Third Trimester: 0.44-4.66 Blood 04/30/2023 11:1 8 AM EDT 04/30/2023 11:31 AM EDT Narrative Resulting Agency Comment Spec In Lab Carina Negron TECHNICAL ASSISTANT CHEMISTRY ORDERABLE S [facility] [address] [address] * (ABNORMAL) Comprehensive metabolic panel (non-fasting) (04/30/2023 11:18 AM EDT) Glucose 98 65 - 199 mg/dL [facility] Comment:Diabetes: >=200 mg/d L plus symptoms Blood Urea Nitrogen 13 8 - 18 mg/dL [facility] Creatinine 0.54(L) 0.70 - 1.20 mg/dL [facility] Sodium 140 135 - 145 mmol/L [facility] Potassium 4.1 3.5 - 5.0 mmol/L [facility] Comment: Please note: ??Patients with WBC >100,000 may have falsely elevated Potassium levels. ??For accurate Potassium quantification in these patients send serum separator tube (gold top) for subsequent determinations. ??Contact the Clinical Chemistry Laboratory if there are any questions. Chloride 102 98 - 107 mmol/L [facility] Carbon Dioxide 23 22 - 31 mmol/L [facility] Anion Gap 15 5 - 15 mmol/L [facility] Calcium 9.5 8.5 - 10.5 mg/dL [facility] Protein, Total 7.5 6.1 - 8.0 g/dL [facility] Albumin 4.5 3.2 - 5.2 g/dL [facility] Aspartate Aminotransferase 62(H) 0 - 30 unit/L [facility] Alanine Aminotransferase 54(H) 0 - 30 unit/L [facility] Alkaline Phosphatase 103 35 - 105 unit/L [facility] Bilirubin, Total 0.3 0.2 - 1.3 mg/dL [facility] Est Glomerular Filtration Rate 111 >=60 mL/min/1. 73 m?? [facility] Comment: This patient's estimated GFR [...] Resulting Agency Comment Spec In Lab Carina A Migdalia HUBBARD CHEMISTRY ORDERABLE S Performing Organization Address City/State/[facility] Co de Phone Number [facility] [place] [address] documented in this encounter Visit Diagnoses Diagnosis [...] and vomiting, unspecified vomiting type Early satiety Diarrhea, unspecified type Chronic nausea Nausea alone [...] and vomiting, unspecified vomiting type Early satiety Diarrhea, unspecified type Chronic nausea Nausea alone [...] and vomiting, unspecified vomiting type Early satiety Diarrhea, unspecified type Chronic nausea Nausea alone [...] type Early satiety documented in this encounter Care Teams Zigzagger Relationship Specialty Start Date End Date Khushboo Arreola PA [address] [place] [address] PCP - General Family Medicine 03/20/22 documented as of this encounter
--- OUTSIDE RECORDS SUMMARY | 2024-08-14 09:41 | XMS_ITS | Encounter Summary ---
Author Organization [facility] Address [address] [place] [address] Care Team Providers Care Box Estimator Name Role Phone Unknown, Provider Primary Care Provider Peter thomson Encounter Details Date Type Department Care Team (Late st Contact Info) Description 05/01/2017 Results Only [facility] [phone] Dieter Hernandez V, NO-Vidya [address] [place], [place] [id number] Social History Tobacco Use Types Packs/Day Years [...] Procedure Name Priority Date/Time Associated Diagnosis Comments PAP TEST- RESULT ONLY Routine 05/01/2017 0:00 EDT documented in this encounter Results * PAP TEST- RESULT ONLY (05/01/2017 0:00 EDT) Pathology Report: CYTOPATHOLOGY REPORT Reports generated via electronic interface contain original data; however they are lacking the format of the original report. Caution should be taken when reading/interpreti ng unformatted reports. Name: ? JOSESULTANA ? Accession #: ? [id number] ? : ? 1970 (Age: 46) ??F ?Collect Date: ? 05/01/2017 ? Location: ? [facility] ? Receive Date: ? 05/03/2017 ? Provider: DIETER HERNANDEZ MPA-C Copy to: ? Final Report SPECIMEN ADEQUACY ? Satisfactory for Evaluation - transformation zone component present GENERAL CATEGORIZATION ? Negative for Intraepithelial Lesion or Malignancy INTERPRETATION ? Shift in suzanna present suggestive of bacterial vaginosis. Menstrual/Pregnanc y Status: ??Post Menopausal Hormonal/Contracep tive status: None Specimen/Source: ??Pap Test, Cervix, ThinPrep Imaging System with manual evaluation Document reviewed and electronically signed by: ? JAYLAN Angeles(ASCP) ? Report ??Date: 05/14/2017 15:18 HPV with Pap Test ? Date Ordered: ? 05/14/2017 ? Status: ?? Signed Out ?Date Complete: ? 05/16/2017 ? By: ??System Interface ? Date Reported: ? 05/16/2017 ? Interpretation RESULT: Negative for HPV. No E6 or E7 mRNA is detected from HPV types 16,18,31,33,35, 39,45,51,52,56,58, 59,66, and 68 by chestnut tanner mediated amplification. Comments Document reviewed and electronically signed by: ? System Interface ? Report date: 05/16/2017 By the signature above, the attending physician certifies that he/she has personally conducted a gross and/or microscopic examination of the described specimens and rendered or confirmed the above diagnosis. End of Report [facility] 05/01/2017 05/03/2017 us ALICIA Deutsch PATHOLOGY ORDERABLES Fi nal Result [facility] [address] [place] [address] documented in this encounter Visit Diagnoses Not on filedocumented in this encounter Care Teams Box Estimator Relationship Specialty Start Date End Date Unknown, Provider, PCP - General 12/29/08 documented as of this encounter
--- OUTSIDE RECORDS SUMMARY | 2024-08-14 09:41 | XMS_ITS | Referral Summary ---
Author Organization [facility] Address [address] [place] [address] Care Team Providers Care Cheese Pancake Roller Name Role Phone Unknown, Provider Primary Care Provider Unava ilable Social History Tobacco Use Types Packs/Day Years Used Date Smoking Tobacco: Never Assessed Interpersonal Safety Answer Date Record ed Physically Hurt Never 02/22/2020 Verbally Threaten Not on file 02/22/2020 Comments Unknown Sex and Gender Information Value Date Recorded Sex Assigned at Not on file Legal Sex Female 18:14 EST Gender Identity Not on file Sexual Orientation Not on file Plan of Treatment Not on file Procedures Procedure Name Priority Date/Time Associated Diagnosis Comments HEPATITIS C AB W REFLEX TO HCV RNA BY PCR Routine 11/10/2023 8:25 EDT from Last 3 Months or Most Recently Relevant to Health Maintenance Results * HEPATITIS C AB W REFLEX TO HCV RNA BY PCR (11/10/2023 8:25 EDT) Hep C Antibody Negative Negative 11/12/2023 9:59 EDT [facility] Blood VENOUS BLOOD / Unknown 11/10/2023 8:25 EDT 11/11/2023 15:30 EDT us Provider Outr Resulting Lab CHEMISTRY & BLOOD GA S ORDERABLES Final Result [facility] [address] [place] [address] from Last 3 Months or Most Recently Relevant to Health Maintenance Insurance [employer] Care Teams Cheese Pancake Roller Relationship Specialty Start Date End Date Unknown, Provider, PCP - General 12/29/08
--- OUTSIDE RECORDS SUMMARY | 2024-08-14 09:41 | XMS_ITS | Encounter Summary ---
Author [place] [address] Care Team Providers Care Research Executive Name Role Phone Trevor Burton MD Primary Care Provider Encounter Details Date Type Department Care Team (Late st Contact Info) Description 03/05/2020 Telephone [place] [phone] Claire Rodney Social History Tobacco Use Types Packs/Day Years Used Date Smoking Tobacco: Never Assessed Sex and Gender Information Value Date Recorded Sex Assigned at Not on file Gender Identity Not on file Sexual Orientation Not on file documented as of this encounter Miscellaneous Notes * Telephone Encounter - Claire Rodney - 03/05/2020 2:04 PM EDT Placed outgoing phone call to patient in order to reschedule an appointment that we had to cancel due to a change in their provider's scheduled. Phone Call Outcome: Left voicemail asking for return call. This was the 1st attempt documented in this encounter Plan of Treatment Not on file documented as of this encounter Visit Diagnoses Not on filedocumented in this encounter Care Teams Research Executive Relationship Specialty Start Date End Date Trevor Burton MD [address] [place] [address] PCP - General General Internal Medicine 09/17/1902/21 documented as of this encounter
--- OUTSIDE RECORDS SUMMARY | 2024-08-14 09:41 | XMS_ITS | Encounter Summary ---
[place] [address] Care Team Providers Care Account Consultant Name Role Phone Khushboo Arreola Primary Care Provider [phone] Reason for Visit * Diagnostic Test (Routine) [...] Procedures NM Gastric Emptying Scan Carina Negron [facility] [place] [place] [address] [place] [address] Referral ID Status Reason Start Date Expiration Date V isits Requested Visits Authorized [id number] Closed Specialty Service Requested 08/09/2022 02/07/2024 1 1 Encounter Details Date Type Department Care Team (Latest Contact Info) Description 05/07/2023 9:56 AM EDT Hospital Encounter [place] [phone] Carina Negron [facility] [place] [address] Discharge Disposition: Home Social History [...] who have questions please contact the health nurse care manager that requested your imaging first. ? Electronically signed by: Misha Merino MD, [facility] ([phone]), at 05/07/2023 1:38 PM Narrative 05/07/2023 1:38 [...] patients who have questions please contactthe health nurse care manager that requested your imaging first. Electronically signed by: Misha Merino MD, [facility]([phone]), at 05/07/2023 1:38 PM Carina Negron RESEARCH ENVIRONMENTAL ENGINEER IMG NM ORDERABLES documented in this encounter Visit Diagnoses Not on filedocumented in this encounter Additional Health Concerns Infection Onset Date Last Indicated Resolved Time Rule Out C. difficile 05/07/2023 05/07/20232022 1:16 PM EDT documented as of this encounter Care Teams Account Consultant Relationship Specialty Start Date End Date Khushboo Arreola PA [address] [place] [address] PCP - General Family Medicine 03/20/22 documented as of this encounter
--- OUTSIDE RECORDS SUMMARY | 2024-08-14 09:41 | XMS_ITS | Encounter Summary ---
Author Organization [facility] Address [address] [place] [address] Care Team Providers Care Defect Cutter Name Role Phone Unknown, Provider Primary Care Provider Unava ilable Encounter Details Date Type Department Care Team (Late st Contact Info) Description 12/18/2019 Lab Requisition [facility] Pathology & Laboratory Medicine - [facility] [address] [place] [address] Kingston Lpee MD [address] [place] [address] Encounter for other general examination Social History Tobacco Use Types Packs/Day [...] Procedure Name Priority Date/Time Associated Diagnosis Comments SURGICAL PATHOLOGY Today 12/18/2019 8:55 EDT documented in this encounter Results * SURGICAL PATHOLOGY (12/18/2019 8:55 EDT) Final Diagnosis A. COLON, CECUM, POLYPS, BIOPSY: - Fragments of inflammatory/ hyperplastic polyps with lymphoid aggregates. - Deeper sections examined. B. COLON, TRANSVERSE, POLYP, BIOPSY: - Fragments of inflamed tubular adenoma. 12/23/2019 10:17 EDT [facility] at 1017 Attestation By the signature below, the attending physician certifies that they have 1) personally conducted a gross and/or microscopic examination of the described specimen(s), and/or personally interpreted the results of laboratory testing of the described specimen(s), and 2) personally rendered or confirmed the above diagnosis. 12/23/2019 10:17 [facility] at 1017 Clinical History Hx polyp with dysplasia; colon polyps 12/23/2019 10:17 T [facility] Gross Description A. Received in formalin labelled with proper patient identification (initials M, A) and cecal polyps are 5 norwood-brown tissues (0.2 x 0.2 x 0.1 cm to 0.5 x 0.2 x 0.1 cm). Submitted in toto in A1 and A2. B. Received in formalin labelled with proper patient identification (initials M, A) and transverse colon polyp is an aggregate of norwood-brown tissue fragments (0.9 x 0.6 x 0.2 cm). Submitted in toto in B1. Alida Denzer 12/19/2019 9:32 12/23/2019 10:17 EDT [facility] Scanned Images 12/23/2019 10:17 T [facility] Tissue ENTIRE TRANSVERSE COLON / Unknown 12/18/2019 8:55 EDT 12/18/2019 23:16 EDT Tissue specimen (specimen) TRANSVERSE COLON STRUCTURE / Unknown 12/18/2019 8:55 EDT 12/18/2019 23:16 EDT us Kingston Lepe MD PATHOLOGY ORDERABLES F inal Result [facility] [address] [place] [address] documented in this encounter Visit Diagnoses Diagnosis Encounter for other general examination documented in this encounter Care Teams Defect Cutter Relationship Specialty Start Date End Date Unknown, Provider, PCP - General 12/29/08 documented as of this encounter
--- OUTSIDE RECORDS SUMMARY | 2024-08-14 09:41 | XMS_ITS | Encounter Summary ---
Author [place] [address] Care Team Providers Care Chain Builder Name Role Phone Trevor Burton MD Primary Care Provider Encounter Details Date Type Department Care Team (Late st Contact Info) Description 11/07/2019 [place] [phone] Clarie Rodney Social History Tobacco Use Types Packs/Day Years Used Date Smoking Tobacco: Never Assessed Sex and Gender Information Value Date Recorded Sex Assigned at Not on file Gender Identity Not on file Sexual Orientation Not on file documented as of this encounter Miscellaneous Notes * Telephone Encounter - Claire Rodney - 11/07/2019 8:13 AM EDT LVM for patient to call back and reschedule her last missed f/u with Per last note in chart it appears an appt after 3 is convenient for the patient. documented in this encounter Plan of Treatment Not on file documented as of this encounter Visit Diagnoses Not on filedocumented in this encounter Care Teams Chain Builder Relationship Specialty Start Date End Date Trevor Burton MD [address] [place] [address] PCP - General General Internal Medicine 09/17/1902/21 documented as of this encounter
--- OUTSIDE RECORDS SUMMARY | 2024-08-14 09:41 | XMS_ITS | Encounter Summary ---
Author Organization [facility] Address [address] [place] [address] Care Team Providers Care Morning Babysitter Name Role Phone Unknown, Provider MD Primary Care Provider Unava ilable Encounter Details Date Type Department Care Team (Late st Contact Info) Description 06/03/2020 Results Only [facility] [place] [facility] [place] [address] [address] Unknown, Provider, Social History Tobacco Use Types Packs/Day Years [...] Priority Date/Time Associated Diagnosis Comments SURGICAL PATHOLOGY Routine 06/03/2020 documented in this encounter Results * SURGICAL PATHOLOGY (06/03/2020) 06/03/2020 06/04/2020 14: 16 EST Narrative [facility] - 06/08/2020 13:14 EST ----- ------- Name: SULTANA NICHOLAS ?: [birth year] ?Age/Sex: 49/F ?Unit#: [id number] ? Loc: LAB.POP ? Status: REG REF ?? Reg Date: 06/03/20 ? Pt.Phone Number: ? ----- ------- Specimen: [id number] ? STATUS: SOUT ?Spec Date:06/03/20 ? Physician Copies: ?NONE,NONE ? Tissues: A ?? Endoscopy specimen (TRANSVERSE POLYP) ?DOMINIQUE BEGUM ? CPT: 73183 ?? Units: ??1 ?FINAL DIAGNOSIS ? COLON, TRANSVERSE, POLYP, BIOPSY: ? - Rare strips of superficial colonic epithelium, insufficient for diagnosis. ----- ------- ?COMMENT ? [id number] ? GROSS DESCRIPTION ? Received in formalin labeled with proper patient identification (initials M,A) ? and transverse colon polyp is a single fragment of norwood tissue (0.2 x 0.2 x ? 0.2 cm). ??The specimen is submitted in 1. ??/K Signed ____(signature on file)____ Nidhi Gonsalez 06/08/20 ? By the signature above, the attending physician certifies that he/she has personally conducted a gross and/or microscopic examination of the described specimens and rendered or confirmed the above diagnosis. Test Performed by [facility], [address] [place] [address] General Milling Superintendent: Ashia Bishop MD PHD ----- ------- us Provider Unknown PATHOLOGY ORDERABLES Final R esult [facility] [address] [place] [address] documented in this encounter Visit Diagnoses Not on filedocumented in this encounter Care Teams Morning Babysitter Relationship Specialty Start Date End Date Unknown, Provider, PCP - General 12/29/08 documented as of this encounter
--- OUTSIDE RECORDS SUMMARY | 2024-08-14 09:41 | XMS_ITS | Encounter Summary ---
Author Organization [facility] Address [address] [place] [address] Care Team Providers Care Animal Care Attendant Name Role Phone Unknown, Provider Primary Care Provider Unahaylie ilable Encounter Details Date Type Department Care Team (Late st Contact Info) Description 11/10/2023 Lab Requisition [facility] Pathology & Laboratory Medicine - [facility] [address] [place] [address] Outr Resulting Lab, Provider Social History Tobacco Use Types Packs/Day Years [...] RNA BY PCR Routine 11/10/2023 8:25 EDT ALPHA 1 ANTITRYPSIN Routine 11/10/2023 8 :25 EDT HEPATITIS A TOTAL ANTIBODY W REFLEX Routine 11/10/2023 8:25 EDT HEPATITIS B CORE ANTIBODY (TOTAL) Routine 11/10/2023 8:25 EDT HEPATITIS B SURFACE ANTIBODY Routine 11/10/2023 8:25 EDT HEPATITIS B SURFACE ANTIGEN Routine 11/10/2023 8:25 EDT HIV 1/2 ANTIGEN AND ANTIBODY, 4TH GENERATION Routine 11/10/2023 8:25 EDT ANTI NUCLEAR AB (BALDO), IFA Routine 11/10/2023 8:25 EDT IGG Routine 11/10/2023 8:25 EDT documented in this encounter Results * HEPATITIS B CORE ANTIBODY (TOTAL) (11/10/2023 8:25 EDT) Hepatitis B Core Ab, Total Negative Negative 11/12/2023 9:58 EDT [facility] Blood VENOUS BLOOD / Unknown 11/10/2023 8:25 EDT 11/11/2023 15:30 EDT us Provider Outr Resulting Lab CHEMISTRY & BLOOD GA S ORDERABLES Final Result Performing Organization Address City/[facility]/ZIP Co de Phone Number [facility] [address] [place] [address] * IGG (11/10/2023 8:25 EDT) IgG 692 610 - 1,616 mg/dL 11/12/2023 10:38 EDT [facility] Blood VENOUS BLOOD / Unknown 11/10/2023 8:25 EDT 11/11/2023 15:30 EDT us Provider Outr Resulting Lab CHEMISTRY & BLOOD GA S ORDERABLES Final Result [facility] [address] [place] [address] * HIV 1/2 ANTIGEN AND ANTIBODY, 4TH GENERATION (11/10/2023 8:25 EDT) HIV 1 and 2 Antibody/p24 Antigen, 4th Generation Negative Negative 11/12/2023 10:31 EDT [facility] Comment:If acute HIV-1 infec tion is suspected in a high risk patient, submit plasma specimen for HIV-1 RNA quantitation test. Blood VENOUS BLOOD / Unknown 11/10/2023 8:25 EDT 11/11/2023 15:30 EDT Narrative [facility] - 11/12/2023 10:31 EDT Fourth Generation assay performed on the Siemens Cloud Flooraur XPT. us Provider Outr Resulting Lab IMMUNOLOGY AND SEROL OGY ORDERABLES Final Result Performing Organization Address City/[facility]/ZIP Co de Phone Number [facility] [address] [place] [address] * HEPATITIS C AB W REFLEX TO HCV RNA BY PCR (11/10/2023 8:25 EDT) Hep C Antibody Negative Negative 11/12/2023 9:59 EDT [facility] Blood VENOUS BLOOD / Unknown 11/10/2023 8:25 EDT 11/11/2023 15:30 EDT us Provider Outr Resulting Lab CHEMISTRY & BLOOD GA S ORDERABLES Final Result Performing Organization Address [facility]/ZIP Co de Phone Number [facility] [address] [place] [phone] * (ABNORMAL) ANTI NUCLEAR AB (BALDO), IFA (11/10/2023 8:25 EDT) BALDO Interpretation Positive(A) Negative 11/12/2023 16:01 EDT [facility] Comment: For titers greater than or equal to 1:160 (except the centromere and nucleolar patterns) it is recommended that specific follow-up autoantibody testing ??(such as for dsDNA and Extractable Nuclear Antigens) be performed on all diffuse and/or speckled patterns NOTE: For add-on testing dsDNA is stable for 7 days refrigerated while Extractable Nuclear Antigens are only stable for 48 hours refrigerated. BALDO Titer and Pattern 1 1:160 Speckled 11/12/2023 16:01 EDT [facility] Blood VENOUS BLOOD / Unknown 11/10/2023 8:25 EDT 11/11/2023 15:30 EDT Narrative [facility] - 11/12/2023 16:01 EDT Results were obtained with the INOVA NOVA Lite HEp-2 BALDO Kit by indirect immunofluorescence. us Provider Outr Resulting Lab IMMUNOLOGY AND SEROL OGY ORDERABLES Final Result Performing Organization Address [facility] Co de Phone Number [facility] [address] [place] [address] * ALPHA 1 ANTITRYPSIN (11/10/2023 8:25 EDT) [facility] Alpha 1 Antitrypsin 180 90 - 200 mg/dL 11/12/2023 10:40 EDT [facility] Blood VENOUS BLOOD / Unknown 11/10/2023 8:25 EDT 11/11/2023 15:30 EDT us Provider Outr Resulting Lab CHEMISTRY & BLOOD GA S ORDERABLES Final Result Performing Organization Address [facility] Co de Phone Number [facility] [address] [place] [address] * HEPATITIS A TOTAL ANTIBODY W REFLEX (11/10/2023 8:25 EDT) [facility] Hepatitis A Antibody, Total Negative Negative 11/12/2023 10:47 EDT [facility] Blood VENOUS BLOOD / Unknown 11/10/2023 8:25 EDT 11/11/2023 15:30 EDT Narrative [facility] - 11/12/2023 10:47 EDT The result of this assay can be falsely elevated (Positive) due to the consumption of Biotin. us Provider Outr Resulting Lab CHEMISTRY & BLOOD GA S ORDERABLES Final Result Performing Organization Address [facility]/ZIP Co de Phone Number [facility] [address] [place], [place] [phone] * HEPATITIS B SURFACE ANTIBODY (11/10/2023 8:25 EDT) Hep B Surface Ab, Quantitative 17.1 See Note mIU/mL 11/12/2023 9:18 EDT [facility] Comment: Reference Range for Hep B Surface Ab, Quant: Positive: >= 10.0 mIU/mL Negative: ??< 10.0 mIU/mL Patient is presumed to be immune to infection with Hepatitis B Virus. Hep B Surface Ab, Qualitative Positive See Note 11/12/2023 9:18 EDT [facility] Comment: Reference Range for Hep B Surface Ab, Qual: Unvaccinated: ??Negative Vaccinated: ??Positive Blood VENOUS BLOOD / Unknown 11/10/2023 8:25 EDT 11/11/2023 15:30 EDT us Provider Outr Resulting Lab CHEMISTRY & BLOOD GA S ORDERABLES Final Result Performing Organization Address [facility] de Phone Number [facility] [address] [place] [address] * HEPATITIS B SURFACE ANTIGEN (11/10/2023 8:25 EDT) Pathologist [facility] Hep B Surface Ag Negative Negative 11/12/2023 9:28 EDT [facility] Blood VENOUS BLOOD / Unknown 11/10/2023 8:25 EDT 11/11/2023 15:30 EDT us Provider Outr Resulting Lab CHEMISTRY & BLOOD GA S ORDERABLES Final Result Performing Organization Address City/[facility]/ZIP Co de Phone Number [facility] [address] [place], [place] [phone] documented in this encounter Visit Diagnoses Not on filedocumented in this encounter Care Teams Animal Care Attendant Relationship Specialty Start Date End Date Unknown, Provider, PCP - General 12/29/08 documented as of this encounter
--- OUTSIDE RECORDS SUMMARY | 2024-08-14 09:41 | XMS_ITS | Encounter Summary ---
Author Organization [facility] Address [address] [place] [address] Care Team Providers Care Live Out Nanny Name Role Phone Unknown, Provider Primary Care Provider Peter ilgarima Encounter Details Date Type Department Care Team (Late st Contact Info) Description 05/27/2021 Lab Requisition [facility] Pathology & Laboratory Medicine - [facility] [address] [place] [address] Kingston Lepe MD [address] [place] [address] Encounter for other general examination Social History [...] Date/Time Associated Diagnosis Comments SURGICAL PATHOLOGY Today 05/27/2021 9:45 EDT documented in this encounter Results * SURGICAL PATHOLOGY (05/27/2021 9:45 EDT) Note to Patient The following pathology results have been interpreted by your pathologist and may be available to you before your health provider has had the opportunity to review them. Please allow time for your provider to receive these results and explore management options, if applicable. 05/30/2021 11:42 EST [facility] Final Diagnosis A. ILEUM, TERMINAL, BIOPSY: - Small intestinal mucosa with no significant diagnostic abnormalities. B. COLON, POLYPECTOMY SITE, BIOPSY: - Colonic mucosa with no significant diagnostic abnormalities. - No definite polyp identified. - Negative for dysplasia and malignancy. C. COLON, RANDOM, BIOPSY: - Colonic mucosa with no significant diagnostic abnormalities. D. COLON, TRANSVERSE, POLYP, BIOPSY: - Fragments of tubular adenoma. 05/30/2021 11:42 [facility] Attestation By the signature below, the attending physician certifies that they have 1) personally conducted a gross and/or microscopic examination of the described specimen(s), and/or personally interpreted the results of laboratory testing of the described specimen(s), and 2) personally rendered or confirmed the above diagnosis. 05/30/2021 11:42 [facility] at 1142 Clinical History History of colon polyps; polyps, hemorrhoids 05/30/2021 11:42 [facility] Gross Description A. Received in formalin labelled with proper patient identification (initials M, A) and terminal ileum bx are 3 norwood tissues (0.1 x 0.1 x 0.1 cm up to 0.5 x 0.3 x 0.2 cm). Submitted entirely in A1. B. Received in formalin labelled with proper patient identification (initials M, A) and polypectomy site biopsy is a single norwood tissue (0.2 x 0.2 x 0.2 cm). Submitted intact in B1. C. Received in formalin labelled with proper patient identification (initials M, A) and random colon bx are 6 norwood tissues (0.2 x 0.1 x 0.1 cm up to 0.3 x 0.3 x 0.2 cm). Submitted entirely in C1 and C2. D. Received in formalin labelled with proper patient identification (initials M, A) and transverse colon polyp in aggregate of norwood-brown tissue fragments (0.7 x 0.5 x 0.1 cm). Submitted entirely in D1. JASMYN INEVES(ASCP) 05/28/2021 14:45 05/30/2021 11:42 [facility] Performing Lab [facility] 05/30/2021 11:42 [facility] Scanned Images 05/30/2021 11:42 [facility] Tissue ENTIRE TRANSVERSE COLON / Unknown 05/27/2021 9:45 EDT 05/27/2021 21:20 EDT Tissue specimen (specimen) COLON STRUCTURE / Unknown 05/27/2021 9:45 EDT 05/27/2021 21:20 EDT Tissue specimen (specimen) COLON STRUCTURE / Unknown 05/27/2021 9:45 EDT 05/27/2021 21:20 EDT Tissue specimen (specimen) TRANSVERSE COLON STRUCTURE / Unknown 05/27/2021 9:45 EDT 05/27/2021 21:20 EDT us Kingston Lepe MD PATHOLOGY ORDERABLES F inal Result [facility] [address] [place] [address] documented in this encounter Visit Diagnoses Diagnosis Encounter for other general examination documented in this encounter Care Teams Live Out Nanny Relationship Specialty Start Date End Date Unknown, Provider, PCP - General 12/29/08 documented as of this encounter
--- OUTSIDE RECORDS SUMMARY | 2024-08-14 09:41 | XMS_ITS | Encounter Summary ---
Author Organization [facility] [address] [place] [address] Care Team Providers Care Parts Chaser Name Role Phone Khushboo Arreola Primary Care Provider Reason for Referral * Consultation (Routine) - Closed Specialty Diagnoses / Procedures Referred By Contac t Referred To Contact Dermatology Diagnoses Loss of hair Khushboo Arreola PA [address] [place] [address] [facility] D[facility]at[facility] [address] [place] [address] Referral ID Status Reason Start Date Expiration Date V isits Requested Visits Authorized [id number] Closed Consult, Test & Treat PCP Updated and/or Approved 03/20/2022 03/20/2023 6 6 Encounter Details Date Type Department Care Team (Late st Contact Info) Description 03/20/2022 Transcribe Orders eDH Incoming Referrals [phone] Khushboo Arreola PA [address] [place], [place] [id number] Loss of hair Social History Tobacco Use Types Packs/Day Years Used Date Smoking Tobacco: Never Assessed Sex and Gender Information Value Date Recorded Sex Assigned at Not on file Gender Identity Not on file Sexual Orientation Not on file documented as of this encounter Plan of Treatment Scheduled Referrals Name Type Priority Associated Diagnoses Order Schedule Referral to Dermatology Outpatient Referral Routine Loss of hair Ordered: 03/20/2022 documented as of this encounter Visit Diagnoses Diagnosis Loss of hair Alopecia, unspecified documented in this encounter Care Teams Parts Chaser Relationship Specialty Start Date End Date Khushboo Arreola PA [address] [place] [phone] PCP - General Family Medicine 03/20/22 documented as of this encounter
--- OUTSIDE RECORDS SUMMARY | 2024-08-14 09:41 | XMS_ITS | Encounter Summary ---
[place] [address] Care Team Providers Care Professor Of Music Name Role Phone Trevor Burton MD Primary Care Provider [phone] Encounter Details Date Type Department Care Team (Late st Contact Info) Description 10/16/2019 [place] [phone] Angelina Horta Social History Tobacco Use Types Packs/Day Years Used Date Smoking Tobacco: Never Assessed Sex and Gender Information Value Date Recorded Sex Assigned at Not on file Gender Identity Not on file Sexual Orientation Not on file documented as of this encounter Miscellaneous Notes * Telephone Encounter - Angelina Horta - 10/16/2019 2:28 PM EDT Pt returned our call- she is fine with a phone call visit, however she is wondering if she could have it at 3- or after as she is working double duty at her job. I messaged Dr. Quevedo to ask if thatwas possible and told patient we would call her back. documented in this encounter Plan of Treatment Not on file documented as of this encounter Visit Diagnoses Not on filedocumented in this encounter Care Teams Professor Of Music Relationship Specialty Start Date End Date Trevor Burton MD [address] [place] [id number] PCP - General General Internal Medicine 2/26/20 8/2 8/22 documented as of this encounter
--- OUTSIDE RECORDS SUMMARY | 2024-08-14 09:41 | XMS_ITS | Encounter Summary ---
Author Organization [facility] Address [address] [place] [address] Care Team Providers Care Pacu Rn Name Role Phone Unknown, Provider Primary Care Provider Unava ilable Encounter Details Date Type Department Care Team (Late st Contact Info) Description 06/16/2020 Lab Requisition [facility] Pathology & Laboratory Medicine - [address] [address] Outr Resulting Lab, Provider Social History [...] of this encounter Plan of Treatment Scheduled Orders Name Type Priority Associated Diagnoses Orde r Schedule SURGICAL PATHOLOGY Pathology Routine Ordere d: 06/16/2020 documented as of this encounter Visit Diagnoses Not on filedocumented in this encounter Care Teams Pacu Rn Relationship Specialty Start Date End Date Unknown, Provider, PCP - General 12/29/08 documented as of this encounter
--- OUTSIDE RECORDS SUMMARY | 2024-08-14 09:41 | XMS_ITS | Encounter Summary ---
[place] [address] Care Team Providers Care Scrap Breaker Name Role Phone Khushboo Arreola Primary Care Provider [phone] Encounter Details Date Type Department Care Team (Late st Contact Info) Description 11/29/2022 Telephone [place] [phone] RamonaOctober Social History Tobacco Use Types Packs/Day Years Used Date Smoking Tobacco: Every Day Cigarettes Smokeless Tobacco: Never Sex and Gender Information Value Date Recorded Sex Assigned at Not on file Gender Identity Not on file Sexual Orientation Not on file documented as of this encounter Miscellaneous Notes * Telephone Encounter - RamonaOctober - 11/29/2022 11:32 AM EDT Sultana Nicholas [id number] Diagnosis/Indication: chronic vomiting and chronic diarrhea, previous [...] SCHEDULING QUESTIONS (ask all patient these questions) 1. Have you ever had a/an Upper Endoscopy & Colonoscopy before? Yes: Date 05/27/21 [place] If yes, did you have any problems with the procedure (such as waking up during the procedure, pain or difficulties afterwards, etc.)? No What type of sedation was used: IV Conscious Sedation 2. Do you take any blood thinners or have you been diagnosed with a bleeding disorder that increases your risk of bleeding with procedures? No 3. Do you have a Pacemaker or Defibrillator device? If yes, send pool message to Cardiology with patient information and date or procedure. No 4. Are you a diabetic? If yes, call PCP/managing provider to discuss use of prep and any questions or concerns related to. No 5. Do you take any iron supplements or vitamins that contain iron? No 6. Do you have a preference regarding the gender of your provider? No ANESTHESIA QUESTIONS (YES to any question, please book with Anesthesia support) 7. Have you ever been diagnosed with Pulmonary Hypertension and/or Congential Heart Disease? No 8. Have you been diagnosed with A-Fib (atrial fibrillation) that is NOT being well controled with medications? No 9. Have you ever had an allergic or adverse reaction to Fentanyl or Versed? No 10. Have you had a problem with sedation or anesthesia? (Waking up during procedure, extreme confusion after, etc.) No 11. Do you have a diagnosis of Obstructive Sleep Apnea that requires the use of a c-pap machine? No 12. Do you use an oxygen tank at home? No 13. Do you use a rescue inhaler more than twice per day? (COPD, severe asthma) No 14. Do you experience breathing problems when you lay flat for a period of time? No 15. Do you take prescription narcotic pain medications, including suboxone or methodone? No SCHEDULING CONFIRMATIONS: Please note any and all parts of your conversation with the patient here. 16. We offer all new patients an opportunity to have an appointment with one of our associate care providers to learn more about your upcoming procedure, ask questions and get answers. These appointments are offered via telehealth. Would you be interested in scheduling this appointment? (Only ask if NEW referral patient; skip this question if [facility] provider ordered the procedure.) No 17. Is there any other information or concerns you would like to us to share with your care team inrelation to your upcoming scheduled procedure? No 18. You must have a responsible republican who will drive you to your procedure, stay on campus for the entire duration of your procedure, and drive you home from your procedure. Who will likely be your petroleum transport driver for the procedure? Estimated body mass index is 25.34 kg/m?? as calculated from the following: Height as of an earlier encounter on 11/29/22: 154.9 cm (5' 1). Weight as of 08/09/22: 60.8 kg (134 lb 1.6 oz). Age:52 y.o. documented in this encounter Plan of Treatment Not on file documented as of this encounter Visit Diagnoses Not on filedocumented in this encounter Care Teams Scrap Breaker Relationship Specialty Start Date End Date Khushboo Arreola PA [address] [place] [id number] PCP - General Family Medicine 03/20/22 documented as of this encounter
--- OUTSIDE RECORDS SUMMARY | 2024-08-14 09:41 | XMS_ITS | Encounter Summary ---
Author Organization [facility] Address [address] [place] [address] Care Team Providers Care Medical Office Technician Name Role Phone Unknown, Provider Primary Care Provider Unava ilable Encounter Details Date Type Department Care Team (Late st Contact Info) Description 08/27/2019 Lab Requisition [facility] Pathology & Laboratory Medicine - [facility] [address] [place] [address] Kingston Lepe MD [address] [place] [address] Encounter for other general examination Social History [...] Date/Time Associated Diagnosis Comments SURGICAL PATHOLOGY Today 08/27/2019 11 :01 EST documented in this encounter Results * SURGICAL PATHOLOGY (08/27/2019 11:01 EST) Final Diagnosis A. COLON, ASCENDING, POLYP, BIOPSY: - Colonic mucosa with no specific pathologic features. - Deeper sections have been reviewed. B. 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 C. COLON, TRANSVERSE, POLYP #2, BIOPSY: - Colonic mucosa with prominent lymphoid aggregate. - Deeper sections have been reviewed. D. COLON, TRANSVERSE, POLYP #3, BIOPSY: - Polypoid colonic mucosa with no specific pathologic features. - Deeper sections have been reviewed. E. COLON, TRANSVERSE, POLYP #4, BIOPSY: - Fragments of heavily cauterized tubular adenoma with focal high grade dysplasia. 08/29/2019 15:21 [facility] at 1520 Clinical History Colon polyps 08/29/2019 15:21 [facility] Attestation By the signature below, the attending physician certifies that they have personally conducted a gross and/or microscopic examination of the described specimens and rendered or confirmed the above diagnosis. 08/29/2019 15:21 [facility] at 1520 Gross Description X face and A. Received in formalin labelled with proper patient identification (initials M, A) and A. A in scending colon polyp is a light norwood biopsy measuring 0.7 x 0.2 x 0.1 cm. Submitted intact in A1. B. Received in formalin labelled with proper patient identification (initials M, A) and B. Transverse colon polyps are 9 light norwood and red-brown biopsies ranging in size from 0.2 x 0.2 x 0.1 cm up to 0.5 x 0.3 x 0.3 cm. Submitted intact in B1-B3. C. Received in formalin labelled with proper patient identification (initials M, A) and C. Transverse colon polyp #2 is a 0.5 x 0.2 x 0.1 cm aggregate of norwood-green mucinous material. Submitted intact in C1. D. Received in formalin labelled with proper patient identification (initials M, A) and D. Transverse colon polyps #3. Is a light norwood biopsy measuring 0.3 x 0.2 x 0 point 2 cm. Submitted intact in D1. E.Received in formalin labelled with proper patient identification (initials M, A) and E. Transverse colon polyp #4 is a 1.5 x 0.5 x 0.3 cm aggregate of yellow green mucinous material. Submitted entirely in E1. Deja Woodward 08/28/2019 08:29 08/29/2019 15:21 [facility] Scanned Images 08/29/2019 15:21 [facility] Tissue ENTIRE TRANSVERSE COLON / Unknown 08/27/2019 11:01 EST 08/27/2019 22:40 EST Tissue specimen (specimen) TRANSVERSE COLON STRUCTURE / Unknown 08/27/2019 11:01 EST 08/27/2019 22:40 EST Tissue specimen (specimen) TRANSVERSE COLON STRUCTURE / Unknown 08/27/2019 11:01 EST 08/27/2019 22:40 EST Tissue specimen (specimen) TRANSVERSE COLON STRUCTURE / Unknown 08/27/2019 11:01 EST 08/27/2019 22:40 EST Tissue specimen (specimen) TRANSVERSE COLON STRUCTURE / Unknown 08/27/2019 11:01 EST 08/27/2019 22:40 EST us Kingston Lepe MD PATHOLOGY ORDERABLES F inal Result [facility] [address] [place] [address] documented in this encounter Visit Diagnoses Diagnosis Encounter for other general examination documented in this encounter Care Teams Medical Office Technician Relationship Specialty Start Date End Date Unknown, Provider, PCP - General 12/29/08 documented as of this encounter
--- OUTSIDE RECORDS SUMMARY | 2024-08-14 09:41 | XMS_ITS | Encounter Summary ---
Author Organization [facility] Address [address] [place] [address] Care Team Providers Care Digital Account Supervisor Name Role Phone Unknown, Provider Primary Care Provider Peter ilgarima Encounter Details Date Type Department Care Team (Late st Contact Info) Description 01/31/2011 Results Only [facility]- [facility] [phone] Norberto Thurman PA-C [address] [place] [phone] Social History Tobacco Use Types Packs/Day Years [...] Diagnosis Comments PAP TEST- RESULT ONLY Routine 01/31/2011 0:00 EDT documented in this encounter Results * PAP TEST- RESULT ONLY (01/31/2011 0:00 EDT) Pathology Report: CYTOPATHOLOGY REPORT ? Reports generated via electronic interface contain original data; ? however they are lacking the format of the original report. ? Caution should be taken when reading/interpreti ng unformatted reports. ? Name: ? JOSE, SULTANA ? Accession #: ? [id number] ? : ? 1970 (Age: 40) ??F ?Collect Date: ? 01/31/2011 ? Location: ? [facility] ? Receive Date: ? 02/01/2011 ? Provider: ?NORBERTO AHUJA PA ? Copy to: ? Specimen/Source: ?Pap Test, Cervix/Endocervix, ThinPrep Imaging System ? with manual evaluation ? Last Menstrual Period: ? 12/20/10 ? SPECIMEN ADEQUACY ? Satisfactory for Evaluation ? - transformation zone component present ? GENERAL CATEGORIZATION ? Negative for Intraepithelial Lesion or Malignancy ? Document reviewed and electronically signed by: ? Kalpana Lutz, CT(ASCP) ? Report Date: ??02/07/2011 14:03 ? End of Report ? [facility] 01/31/2011 02/01/2011 us Norberto VINES-C PATHOLOGY ORDERABLES Final R esult [facility] [address] [place] [address] documented in this encounter Visit Diagnoses Not on filedocumented in this encounter Care Teams Digital Account Supervisor Relationship Specialty Start Date End Date Unknown, Provider, PCP - General 12/29/08 documented as of this encounter
--- OUTSIDE RECORDS SUMMARY | 2024-08-14 09:41 | XMS_ITS | Encounter Summary ---
Author Organization [facility] [place] [address] Care Team Providers Care Hook Up Driver Name Role Phone Khushboo Arreola Primary Care Provider Encounter Details Date Type Department Care Team (Latest Contact Info) Description 08/09/2022 Travel Social History Tobacco Use Types Packs/Day [...] on filedocumented in this encounter Care Teams Hook Up Driver Relationship Specialty Start Date End Date Khushboo Arreola PA [address] [place] [id number] PCP - General Family Medicine 03/20/22 documented as of this encounter
--- OUTSIDE RECORDS SUMMARY | 2024-08-14 09:41 | XMS_ITS | Encounter Summary ---
Author Organization [facility] Address [address] [place] [address] Care Team Providers Care Boat Pilot Name Role Phone Unknown, Provider Primary Care Provider Unava ilable Encounter Details Date Type Department Care Team (Latest Contact Info) Description 06/28/2022 Lab Requisition [facility] Pathology & Laboratory Medicine - [facility] [address] [place] [address] Khushboo Arreola PA [address] [place] [address] Encounter for screening for malignant neoplasm of cervix; Encounter for gynecological examination (general) (routine) without abnormal findings Social History Tobacco Use Types Packs/Day Years [...] Name Priority Date/Time Associated Diagnosis Comments PAP TEST Today 06/23/2022 3:45 EST Encounter for screening for malignant neoplasm of cervix Encounter for gynecological examination (general) (routine) without abnormal findings HPV DNA DETECTION WITH GENOTYPING, PCR Today 06/23/2022 3:45 EST Encounter for screening for malignant neoplasm of cervix Encounter for gynecological examination (general) (routine) without abnormal findings documented in this encounter Results * HUMAN PAPILLOMAVIRUS (HPV) DETECTION-HIGH RISK TYPES (06/23/2022 3:45 EST) HPV other High Risk types, PCR Negative Negative 07/05/2022 15:10 [facility] Comment:No E6 or E7 mRNA is detected from HPV types 16,18,31,33,35,39,45,51,52,56,58,59,66, and 68 by tree climber mediated amplification. Papanicolaou smear specimen (specimen) CERVIX UTERI STRUCTURE / Unknown 06/23/2022 3:45 EST 07/04/2022 10:55 EST Khushboo VINES MICROBIOLOGY - GENERAL O RDERABLES Final Result [facility] [address] [place] [address] * PAP TEST (06/23/2022 3:45 EST) Specimens A. Cervix and/or Endocervix , ThinPrep Imaging System with Manual Evaluation 07/05/2022 15:10 [facility] Specimen Adequacy Satisfactory for Evaluation - transformation zone component present Scant due to excessive blood 07/05/2022 15:10 [facility] General Categorization Negative for intraepithelial lesion or malignancy 07/05/2022 15:10 [facility] Attestation . 07/05/2022 15:10 [facility] at 1510 Clinical History SEE BELOW 07/05/20 22 15:10 [facility] HPV The result for the Human Papillomavirus (HPV) Detection-High Risk Types is Negative. No E6 or E7 mRNA is detected from HPV types 16,18,31,33,35,39 ,45,51,52,56,58,5 9,66, and 68 by tree climber mediated amplification.Jada ting was performed on specimen [id number] and was resulted on 07/05/2022 1510 EST by PHILLIP, LAB INSTRUMENT RESULTS IN 07/05/2022 15:10 [facility] Performing Lab [facility] 07/05/2022 15:10 [facility] Scanned Images 07/05/2022 15:10 [facility] Papanicolaou smear specimen (specimen) CERVIX UTERI STRUCTURE / Unknown 06/23/2022 3:45 EST 06/28/2022 9:53 EST us Khushboo VINES PATHOLOGY ORDERABLES Fin al Result Performing Organization Address City/State/[facility] Co de Phone Number [facility] [address] [place] [address] documented in this encounter Visit Diagnoses Diagnosis Encounter for screening for malignant neoplasm of cervix Screening for malignant neoplasm of the cervix Encounter for gynecological examination (general) (routine) without abnormal findings documented in this encounter Care Teams Boat Pilot Relationship Specialty Start Date End Date Unknown, Provider, PCP - General 12/29/08 documented as of this encounter
--- OUTSIDE RECORDS SUMMARY | 2024-08-14 09:41 | XMS_ITS | Clinical Summary ---
Author Organization [facility] Address [address] [place] [address] Care Team Providers Care Perl Developer Name Role Phone Unknown, Provider Primary Care [...] Orientation Not on file Plan of Treatment Health Maintenance Due Date Last Done Comments Hepatitis B Vaccine (1 of 3 - 19+ 3-dose series) 09/23 COVID-19 Vaccine ( season) 2024 Hepatitis C Screen Completed 11/10/2023 Procedures Procedure Name Priority Date/Time Associated Diagnosis Comments HEPATITIS C AB W REFLEX TO HCV RNA BY PCR Routine 11/10/2023 8:25 EDT from Last 3 Months or Most Recently Relevant to Health Maintenance Results * HEPATITIS C AB W REFLEX TO HCV RNA BY PCR (11/10/2023 8:25 EDT) Hep C Antibody Negative Negative 11/12/2023 9:59 EDT [facility] Blood VENOUS BLOOD / Unknown 11/10/2023 8:25 EDT 11/11/2023 15:30 EDT us Provider Outr Resulting Lab CHEMISTRY & BLOOD GA S ORDERABLES Final Result [facility] [address] [place] [address] from Last 3 Months or Most Recently Relevant to Health Maintenance Insurance [employer] Care Teams Perl Developer Relationship Specialty Start Date End Date Unknown, Provider, PCP - General 12/29/08
--- OUTSIDE RECORDS SUMMARY | 2024-08-14 09:41 | XMS_ITS | Encounter Summary ---
Author Organization [facility] Address [address] [place] [address] Care Team Providers Care Tire Shop Mechanic Name Role Phone Unknown, Provider Primary Care Provider Peter thomson Encounter Details Date Type Department Care Team (Late st Contact Info) Description 02/16/[address] [facility] [phone] Molly Rider PA [address], [place] [id number] Social History Tobacco Use Types Packs/Day Years [...] Diagnosis Comments PAP TEST- RESULT ONLY Routine 02/16/2015 0:00 EDT documented in this encounter Results * PAP TEST- RESULT ONLY (02/16/2015 0:00 EDT) Pathology Report: CYTOPATHOLOGY REPORT Reports generated via electronic interface contain original data; however they are lacking the format of the original report. Caution should be taken when reading/interpreti ng unformatted reports. Name: ? JOSESULTANA ? Accession #: ? [id number] : ? 1970 (Age: 44) ??F ?Collect Date: ? 02/16/2015 Location: ? [facility] ? Receive Date: ? 02/17/2015 Provider: ?MOLLY VINES Copy to: ? Specimen/Source: ?Pap Test, Endocervix, ThinPrep Imaging System with manual evaluation Last Menstrual Period: ? 4 yrs ago ? SPECIMEN ADEQUACY ? Satisfactory for Evaluation - transformation zone component present GENERAL CATEGORIZATION ? Negative for Intraepithelial Lesion or Malignancy INTERPRETATION ? Shift in suzanna present suggestive of bacterial vaginosis. ? Document reviewed and electronically signed by: ? JAYLAN Lowery(ASCP) ? Report Date: ??02/22/2015 12:56 End of Report [facility] 02/16/2015 02/17/2015 us Molly VINES PATHOLOGY ORDERABLES Final Resu lt [facility] [address] [place] [address] documented in this encounter Visit Diagnoses Not on filedocumented in this encounter Care Teams Tire Shop Mechanic Relationship Specialty Start Date End Date Unknown, Provider, PCP - General 12/29/08 documented as of this encounter
--- OUTSIDE RECORDS SUMMARY | 2024-08-14 09:41 | XMS_ITS | Encounter Summary ---
[place] [address] Care Team Providers Care Manager Interface Name Role Phone Khushboo Arreola Primary Care [...] NM Gastric Emptying Scan Carina Negron APRN [facility] [place] [address] [place] [address] Referral ID Status Reason Start Date Expiration Date V isits Requested Visits Authorized [id number] Closed Specialty Service Requested 08/09/2022 02/07/2024 1 [...] Procedures NM Gastric Emptying Scan Carina Negron [facility] [place] [address] [place] [address] Referral ID Status Reason Start Date Expiration Date V isits Requested Visits Authorized [id number] Closed Specialty Service Requested 08/09/2022 02/07/2024 1 1 Encounter Details Date Type Department Care Team (Latest Contact Info) Description 05/07/2023 9:56 AM EDT Hospital En[place] [address] [place] judge [facility] [place] [address] Diarrhea, unspecified type; Chronic nausea; [...] who have questions please contact the health day care supervisor that requested your imaging first. ? Electronically signed by: Misha Merino MD, [facility] ([phone]), at 05/07/2023 1:38 PM Narrative 05/07/2023 1:38 [...] patients who have questions please contactthe health day care supervisor that requested your imaging first. Electronically signed by: Misha Merino MD, [facility]([phone]), at 05/07/2023 1:38 PM Carina Abel Migdalia DYNAMIC ETCHING PROCESSOR [facility] ORDERABLES documented in this encounter Visit Diagnoses [...] MAR Action Action Date Dose Rate Site technetium (Tc-99m) sulfur colloid injection 0-18 mCi 0-18 mCi, Oral, ONCE PRN, 1 dose, Starting on Sun05/07/23 at 1015, Until Sun05/07/23 at 1012, Per Protocol, Radiology Contrast, Routine Given 05/07/2023 10:12 AM EDT 0.5 mCi documented in this encounter Additional Health Concerns Infection Onset Date Last Indicated Resolved Time Rule Out C. difficile 05/07/2023 05/07/20232022 1:16 PM EDT documented as of this encounter Care Teams Manager Interface Relationship Specialty Start Date End Date Khushboo Arreola PA [address] [address] PCP - General Family Medicine 03/20/22 documented as of this encounter
--- OUTSIDE RECORDS SUMMARY | 2024-08-14 09:41 | XMS_ITS | Encounter Summary ---
[place] [address] Care Team Providers Care Industrial Services Worker Name Role Phone Khushboo Arreola Primary Care Provider [phone] Encounter Details Date Type Department Care Team (Latest Contact Info) Description 04/30/2023 11:10 AM EDT Laboratory Appointment Lab [address] [place] [id number] Diarrhea, unspecified type; Chronic nausea; Cyclic vomiting [...] Procedure Name Priority Date/Time Associated Diagnosis Comments TSH CASCADE Routine 04/30/2023 11:18 AM EDT Diarrhea, unspecified type Chronic nausea Cyclic vomiting syndrome Tenesmus Constipation, unspecified constipation type Irritable bowel syndrome with diarrhea Bloating BRBPR (bright red blood per rectum) Colon polyposis Smoking Nausea and vomiting, unspecified vomiting type Early satiety HEMOGRAM Routine 04/30/2023 11:18 AM EDT Diarrhea, unspecified type Chronic nausea Cyclic vomiting syndrome Tenesmus Constipation, unspecified constipation type Irritable bowel syndrome with diarrhea Bloating BRBPR (bright red blood per rectum) Colon polyposis Smoking Nausea and vomiting, unspecified vomiting type Early satiety DIFFERENTIAL, AUTOMATED Routine 04/30/2023 11:18 AM EDT Diarrhea, unspecified type Chronic nausea Cyclic vomiting syndrome Tenesmus Constipation, unspecified constipation type Irritable bowel syndrome with diarrhea Bloating BRBPR (bright red blood per rectum) Colon polyposis Smoking Nausea and vomiting, unspecified vomiting type Early satiety TISSUE TRANSGLUTAMINASE, IGA Routine 04/30/2023 11:18 AM EDT Diarrhea, unspecified type Chronic nausea Cyclic vomiting syndrome Tenesmus Constipation, unspecified constipation type Irritable bowel syndrome with diarrhea Bloating BRBPR (bright red blood per rectum) Colon polyposis Smoking Nausea and vomiting, unspecified vomiting type Early satiety CBC (WITH DIFF) Routine 04/30/2023 11:18 AM EDT Diarrhea, unspecified type Chronic nausea Cyclic vomiting syndrome Tenesmus Constipation, unspecified constipation type Irritable bowel syndrome with diarrhea Bloating BRBPR (bright red blood per rectum) Colon polyposis Smoking Nausea and vomiting, unspecified vomiting type Early satiety IGA Routine 04/30/2023 11:18 AM EDT Diarrhea, unspecified type Chronic nausea Cyclic vomiting syndrome Tenesmus Constipation, unspecified constipation type Irritable bowel syndrome with diarrhea Bloating BRBPR (bright red blood per rectum) Colon polyposis Smoking Nausea and vomiting, unspecified vomiting type Early satiety IGG Routine 04/30/2023 11:18 AM EDT Diarrhea, unspecified type Chronic nausea Cyclic vomiting syndrome Tenesmus Constipation, unspecified constipation type Irritable bowel syndrome with diarrhea Bloating BRBPR (bright red blood per rectum) Colon polyposis Smoking Nausea and vomiting, unspecified vomiting type Early satiety COMPREHENSIVE METABOLIC PANEL Routine 04/30/2023 11:18 AM EDT Diarrhea, unspecified type Chronic nausea Cyclic vomiting syndrome Tenesmus Constipation, unspecified constipation type Irritable bowel syndrome with diarrhea Bloating BRBPR (bright red blood per rectum) Colon polyposis Smoking Nausea and vomiting, unspecified vomiting type Early satiety documented in this encounter Results * (ABNORMAL) Differential, Automated (04/30/2023 11:18 AM EDT) Neutrophil % 71.9 % [facility] Neutrophil Absolute 9.04(H) 1.70 - 6.10 x10(3)/mc L [facility] Lymph % 22.0 % [facility] Lymphocytes Abs 2.8 0.9 - 3.2 x10(3)/mc L [facility] Monocyte % 4.4 % [facility] Monocyte Abs 0.6 0.3 - 0.9 x10(3)/mc L [facility] Eos % 1.1 % [facility] Eosinophils Abs 0.1 0.0 - 0.4 x10(3)/ L [facility] Basophil % 0.3 % [facility] Baso Absolute 0.0 0.0 - 0.1 x10(3)/ L [facility] Immature Gran % 0.30 % [facility] Comment: Immature granulocytes(IG's)percentage and absolute count will include metamyelocytes, myelocytes, and promyelocytes. Blood smears from CBCs yielding IG's will be scanned manually for concordance. If this scan disagrees with the automated IG or if promyelocytes are noted, a manual differential will be performed. Immature Gran Absolute 0.04 0.00 - 0.04 x10(3)/ L [facility] Blood 04/30/2023 11:1 8 AM EDT 04/30/2023 11:31 AM EDT Narrative Resulting Agency Comment Spec In Lab Carina A Migdalia SARAHN HEMATOLOGY ORDERABL ES [facility] [place] [address] * (ABNORMAL) Hemogram (04/30/2023 11:18 AM EDT) White Blood Cell 12.6(H) 4.0 - 9.5 x10(3)/mc L [facility] Red Blood Cell 4.22 4.00 - 5.21 x10(6)/ L [facility] Hemoglobin 14.3 11.7 - 15.5 g/dL [facility] Hematocrit 42.4 35.7 - 45.8 % [facility] Mean Cell Volume 100.5(H) 82.6 - 94.4 fL [facility] Mean Cell Hemoglobin 33.9(H) 27.1 - 32.0 pg [facility] Mean Cell Hemoglobin Concentration 33.7 31.7 - 35.0 g/dL [facility] Platelet 212 145 - 357 x10(3)/mc L [facility] RDW Standard Deviation 43.6 37.0 - 46.0 fL [facility] RDW coefficient of variation 11.8 11.5 - 14.1 % [facility] Mean Platelet Volume 9.4 7.6 - 12.9 fL [facility] NRBC% auto 0.0 % [facility] NRBC Absolute 0.000 0.000 - 0.000 x10(3)/mc L [facility] Blood 04/30/2023 11:1 8 AM EDT 04/30/2023 11:31 AM EDT Narrative Resulting Agency Comment Spec In Lab Carina Negron GROUP PROGRAM MANAGER HEMATOLOGY ORDERABL ES [facility] [place] [address] * (ABNORMAL) Comprehensive metabolic panel (non-fasting) (04/30/2023 11:18 AM EDT) Glucose 98 65 - 199 mg/dL [facility] Comment:Diabetes: >=200 mg/d L plus symptoms Blood Urea Nitrogen 13 8 - 18 mg/dL [facility] Creatinine 0.54(L) 0.70 - 1.20 mg/dL [facility] Sodium 140 135 - 145 mmol/L [facility] Potassium 4.1 3.5 - 5.0 mmol/L [facility] Comment: Please note: ??Patients with WBC >100,000 may have falsely elevated Potassium levels. ??For accurate Potassium quantification in these patients send serum separator tube (gold top) for subsequent determinations. ??Contact the Clinical Chemistry Laboratory if there are any questions. Chloride 102 98 - 107 mmol/L [facility] Carbon Dioxide 23 22 - 31 mmol/L [facility] Anion Gap 15 5 - 15 mmol/L [facility] Calcium 9.5 8.5 - 10.5 mg/dL [facility] Protein, Total 7.5 6.1 - 8.0 g/dL [facility] Albumin 4.5 3.2 - 5.2 g/dL [facility] Aspartate Aminotransferase 62(H) 0 - 30 unit/L [facility] Alanine Aminotransferase 54(H) 0 - 30 unit/L [facility] Alkaline Phosphatase 103 35 - 105 unit/L [facility] Bilirubin, Total 0.3 0.2 - 1.3 mg/dL [facility] Est Glomerular Filtration Rate 111 >=60 mL/min/1. 73 m?? [facility] Comment: This patient's estimated GFR was [...] Agency Comment Spec In Lab Carina Negron GROUP PROGRAM MANAGER CHEMISTRY ORDERABLE S [facility] [place] [address] * TSH Bandana (04/30/2023 11:18 AM EDT) Thyroid Stimulating Hormone 1.71 0.27 - 4.20 mcIU/mL [facility] Comment: Reference Interval (mcIU/mL): Females: ??First Trimester: 0.23-3.88 ??Second Trimester: 0.22-3.90 ??Third Trimester: 0.44-4.66 Blood 04/30/2023 11:1 8 AM EDT 04/30/2023 11:31 AM EDT Narrative Resulting Agency Comment Spec In Lab Carina Negron GROUP PROGRAM MANAGER CHEMISTRY ORDERABLE S Performing Organization Address City/[facility]/ZIP Co de Phone Number [facility] [place] [address] * IgA (04/30/2023 11:18 AM EDT) IgA 271 70 - 400 mg/dL [facility] Blood 04/30/2023 11:1 8 AM EDT 04/30/2023 11:31 AM EDT Narrative Resulting Agency Comment Spec In Lab Carina Negron GROUP PROGRAM MANAGER CHEMISTRY ORDERABLE S Performing Organization Address [facility] Co de Phone Number [facility] [place] [address] * IgG (04/30/2023 11:18 AM EDT) Immunoglobulin G 879 700 - 1,600 mg/dL [facility] Comment: Pediatric Reference Intervals obtained from the [employer]iper Reference Interval project. http://www.TeraView.ca/caliperproject/index.html Blood 04/30/2023 11:1 8 AM EDT 04/30/2023 11:31 AM EDT Narrative Resulting Agency Comment Spec In Lab Carina Negron GROUP PROGRAM MANAGER CHEMISTRY ORDERABLE S Performing Organization Address [facility] Co de Phone Number [facility] [place] [address] * Tissue transglutaminase, IgA (04/30/2023 11:18 AM EDT) TTG IgA Ab 1.5 <=10.0 u/ml [facility] Comment: Negative: ??<7 units/mL Indeterminate: 7-10 units/mL Positive: ??>10 units/mL Blood 04/30/2023 11:1 8 AM EDT 04/30/2023 12:01 PM EDT Narrative Resulting Agency Comment Spec In Lab Carina Negron GROUP PROGRAM MANAGER IMMUNOLOGY ORDERABL ES [facility] [place] [address] documented in this encounter Visit Diagnoses Diagnosis [...] satiety documented in this encounter Care Teams Industrial Services Worker Relationship Specialty Start Date End Date Khushboo Arreola PA [address] [place] [id number] PCP - General Family Medicine 03/20/22 documented as of this encounter
--- OUTSIDE RECORDS SUMMARY | 2024-08-14 09:41 | XMS_ITS | Encounter Summary ---
Author Organization [facility] Address [address] [place] [address] Care Team Providers Care Special Forces Senior Sergeant Name Role Phone Unknown, Provider Primary Care Provider Peter ilgarima Encounter Details Date Type Department Care Team (Late st Contact Info) Description 12/13/2019 Lab Requisition [facility] Pathology & Laboratory Medicine - [facility] [address] [place] [address] Outr Resulting Lab, Provider Social [...] Procedure Name Priority Date/Time Associated Diagnosis Comments DO NOT ORDER STANDALONE - [facility] COVID TEST Today 12/13/2019 10:06 EDT COVID-19 TESTING Routine 12/13/2019 10:0 6 EDT documented in this encounter Results * DO NOT ORDER STANDALONE - [facility]OAD COVID TEST (12/13/2019 10:06 EDT) COVID-19 rt-PCR Result NEGATIVE Negative 12/15/2019 11:00 EDT [facility] Comment: 2019-novel Coronavirus (2019-nCoV) not detected by the qRT-PCR assay. Consider testing for other respiratory viruses or re-collecting for 2019-nCoV testing. Note: Optimum timing for peak viral levels during infections caused by 2019-nCoV have not been determined. Collection of multiple specimens from the same patient may be necessary to detect the virus. Limitations Positive results are indicative of active infection with SARS-CoV-2 but do not rule out bacterial infection or co-infection with other viruses. The agent detected may not be the definite cause of disease. In addition, detection of viral RNA may not indicate the presence of infectious virus or that SARS-CoV-2 is the causative agent for clinical symptoms. Negative results do not preclude SARS-CoV-2 infection and should not be used as the sole basis for patient management decisions. Negative results must be combined with clinical observations, patient history, and epidemiological information. False negative results may also occur if amplification inhibitors are present in the specimen or if inadequate numbers of organisms are present in the specimen. Optimum specimen types and timing for peak viral levels during infections caused by SARS-CoV-2 have not been fully determined. Collection of multiple specimens (types and time points) from the same patient may be necessary to detect the virus. The test was validated for use with upper respiratory specimens obtained via nasopharyngeal or oropharyngeal swabs in VTM, UTM, M4, M5, M6, saline, and MTM media. The performance of this test has not been established for other specimens. Specimens collected using other FDA recommended Specimen Collection Materials listed in the FDA COVID-19 Diagnostic [employer] communication (October 16, 2019) are processed with the caveat that they were not all validated for use with this test and the result must be interpreted in this context. Furthermore, a false negative results may occur if a specimen is improperly collected, transported or handled. If the virus mutates in the RT-PCR target region, SARS-CoV-2 may not be detected or may be detected less predictably. Inhibitors or other types of interference may produce a false negative result. An interference study evaluating the effect of common cold medications was not performed. This test is not FDA-cleared but its performance characteristics were established by our CLIA-certified, CAP-accredited, high complexity laboratory in accordance with CLIA regulations, [employer] [place] (CAP) guidelines (Oct 09, 2019), and FDA guidance (Sep 20, 2019). This test is only for use under the Food and Drug Administration's Emergency Use Authorization. Swab ENTIRE NASOPHARYNX / Unknown 12/13/2019 10:06 EDT 12/13/2019 21:54 EDT us Provider Outr Resulting Lab MICROBIOLOGY - GENER AL ORDERABLES Final Result [facility] [place], [place] * COVID-19 TESTING (12/13/2019 10:06 EDT) COVID-19 rt-PCR Result NEGATIVE Negative 12/15/2019 12:31 EDT [facility] Comment: 2019-novel Coronavirus (2019-nCoV) not detected by the qRT-PCR assay. Consider testing for other respiratory viruses or re-collecting for 2019-nCoV testing. Note: Optimum timing for peak viral levels during infections caused by 2019-nCoV have not been determined. Collection of multiple specimens from the same patient may be necessary to detect the virus. Limitations Positive results are indicative of active infection with SARS-CoV-2 but do not rule out bacterial infection or co-infection with other viruses. The agent detected may not be the definite cause of disease. In addition, detection of viral RNA may not indicate the presence of infectious virus or that SARS-CoV-2 is the causative agent for clinical symptoms. Negative results do not preclude SARS-CoV-2 infection and should not be used as the sole basis for patient management decisions. Negative results must be combined with clinical observations, patient history, and epidemiological information. False negative results may also occur if amplification inhibitors are present in the specimen or if inadequate numbers of organisms are present in the specimen. Optimum specimen types and timing for peak viral levels during infections caused by SARS-CoV-2 have not been fully determined. Collection of multiple specimens (types and time points) from the same patient may be necessary to detect the virus. The test was validated for use with upper respiratory specimens obtained via nasopharyngeal or oropharyngeal swabs in VTM, UTM, M4, M5, M6, saline, and MTM media. The performance of this test has not been established for other specimens. Specimens collected using other FDA recommended Specimen Collection Materials listed in the FDA COVID-19 [employer] communication (October 16, 2019) are processed with the caveat that they were not all validated for use with this test and the result must be interpreted in this context. Furthermore, a false negative results may occur if a specimen is improperly collected, transported or handled. If the virus mutates in the RT-PCR target region, SARS-CoV-2 may not be detected or may be detected less predictably. Inhibitors or other types of interference may produce a false negative result. An interference study evaluating the effect of common cold medications was not performed. This test is not FDA-cleared but its performance characteristics were established by our CLIA-certified, CAP-accredited, high complexity laboratory in accordance with CLIA regulations, [employer] [place] [employer] (CAP) guidelines (Oct 09, 2019), and FDA guidance (Sep 20, 2019). This test is only for use under the Food and Drug Administration's Emergency Use Authorization. Performing Lab [facility] 12/15/2019 12:31 EDT [facility] Swab ENTIRE NASOPHARYNX / Unknown 12/13/2019 10:06 EDT 12/13/2019 21:54 EDT us Provider Outr Resulting Lab MICROBIOLOGY - GENER AL ORDERABLES Final Result [facility] [address] [place] [address] [facility] [place], [place] documented in this encounter Visit Diagnoses Not on filedocumented in this encounter Care Teams [employer] Senior Sergeant Relationship Specialty Start Date End Date Unknown, Provider, PCP - General 12/29/08 documented as of this encounter
--- OUTSIDE RECORDS SUMMARY | 2024-08-14 09:41 | XMS_ITS | Encounter Summary ---
[place] [address] Care Team Providers Care Supervisor Pyrotechnic Loading Name Role Phone Trevor Burton MD Primary Care Provider Encounter Details Date Type Department Care Team (Late st Contact Info) Description 04/01/2020 Telephone [place] [phone] Agusto Wolff Social History Tobacco Use Types Packs/Day Years Used Date Smoking Tobacco: Never Assessed Sex and Gender Information Value Date Recorded Sex Assigned at Not on file Gender Identity Not on file Sexual Orientation Not on file documented as of this encounter Miscellaneous Notes * Telephone Encounter - Agusto Wolff - 04/01/2020 1:02 PM EDT The GI Telehealth Educate Team attempted to contact patient to check their readiness for their upcoming telehealth visit in GI. We were unable to reach the patient and left a message. April Wolff Patient Experience Navigator Section of Gastroenterology and Hepatology documented in this encounter Plan of Treatment Not on file documented as of this encounter Visit Diagnoses Not on filedocumented in this encounter Care Teams Supervisor Pyrotechnic Loading Relationship Specialty Start Date End Date Trevor Burton MD [address] [place] [id number] PCP - General General Internal Medicine 09/17/1902/21 documented as of this encounter
--- OUTSIDE RECORDS SUMMARY | 2024-08-14 09:41 | XMS_ITS | Encounter Summary ---
[place] [address] Care Team Providers Care Educational Administration Teacher Name Role Phone Trevor Burton MD Primary Care Provider Encounter Details Date Type Department Care Team (Late st Contact Info) Description 01/15/2020 Telephone [place] [phone] Claire Rodney Social History Tobacco Use Types Packs/Day Years Used Date Smoking Tobacco: Never Assessed Sex and Gender Information Value Date Recorded Sex Assigned at Not on file Gender Identity Not on file Sexual Orientation Not on file documented as of this encounter Miscellaneous Notes * Telephone Encounter - Claire Rodney - 01/15/2020 1:35 PM EDT Placed outgoing phone call to patient in order to reschedule an appointment that we had to cancel due to a change in their provider's scheduled. Phone Call Outcome: Left voicemail asking for return call. This was the 1st attempt Also need to convert appt to telehealth documented in this encounter Plan of Treatment Not on file documented as of this encounter Visit Diagnoses Not on filedocumented in this encounter Care Teams Educational Administration Teacher Relationship Specialty Start Date End Date Trevor Burton MD [address] [place] [id number] PCP - General General Internal Medicine 09/17/1902/21 documented as of this encounter
--- OUTSIDE RECORDS SUMMARY | 2024-08-14 09:41 | XMS_ITS | Encounter Summary ---
Author Organization [facility] Address [address] [place] [address] Care Team Providers Care Central Office Repairer Supervisor Name Role Phone Unknown, Provider Primary Care Provider Unahaylie ilable Encounter Details Date Type Department Care Team (Late st Contact Info) Description 04/25/2021 Lab Requisition [facility] Pathology & Laboratory Medicine - [facility] [address] [place] [address] Sohan Wyatt MD [address] [place] [address] Diarrhea, unspecified; Abnormal levels of other serum enzymes; Polyp of colon Social History Tobacco Use Types Packs/Day Years [...] Date/Time Associated Diagnosis Comments SURGICAL PATHOLOGY Today 04/25/2021 10 :40 EDT Diarrhea, unspecified Abnormal levels of other serum enzymes Polyp of colon documented in this encounter Results * SURGICAL PATHOLOGY (04/25/2021 10:40 EDT) Note to Patient The following pathology results have been interpreted by your pathologist and may be available to you before your health provider has had the opportunity to review them. Please allow time for your provider to receive these results and explore management options, if applicable. 04/27/2021 12:39 EDT [facility] Final Diagnosis A. DUODENUM, BIOPSY: - Duodenal mucosa with no specific pathologic features. B. DUODENUM, BULB, BIOPSY: - Duodenal bulb mucosa with no specific pathologic features. C. STOMACH, ANTRUM, BIOPSY: - Gastric mucosa with reactive (chemical) gastropathy. D. STOMACH, BODY, BIOPSY: - Gastric body mucosa with no specific pathologic features. 04/27/2021 12:39 [facility] Attestation By the signature below, the attending physician certifies that they have 1) personally conducted a gross and/or microscopic examination of the described specimen(s), and/or personally interpreted the results of laboratory testing of the described specimen(s), and 2) personally rendered or confirmed the above diagnosis. 04/27/2021 12:39 [facility] at 1239 Clinical History Nausea and vomiting, diarrhea, gastritis; clinical diagnosis code: R19.7, R74.8, K63.5 04/27/2021 12:39 [facility] Gross Description A. Received in formalin labelled with proper patient identification (initials M, A) and duodenum are three pale norwood tissues (0.3 x 0.2 x 0.1 cm to 0.1 x 0.1 x 0.1 cm). Entirely submitted in A1. B. Received in formalin labelled with proper patient identification (initials M, A) and duodenal bulb is a pale norwood-white tissue (0.3 x 0.3 x 0.2 cm). Submitted intact in B1. C. Received in formalin labelled with proper patient identification (initials M, A) and antrum are two pale norwood-white tissues (0.4 x 0.2 x 0.2 cm and 0.1 x 0.1 x 0.1 cm). Entirely submitted in C1. D. Received in formalin labelled with proper patient identification (initials M, A) and body are two pale-norwood tissues (0.5 x 0.2 x 0.1 cm and 0.1 x 0.1 by less than 0.1 cm). Entirely submitted in D1. Vinayak Murray 04/26/2021 8:23 04/27/2021 12:39 [facility] Performing Lab [facility] 04/27/2021 12:39 EDT [facility] Scanned Images 04/27/2021 12:39 EDT [facility] Tissue ENTIRE STOMACH / Unknown 04/25/2021 10:40 EDT 04/25/2021 23:37 EDT Tissue specimen (specimen) STRUCTURE OF SMALL INTESTINE / Unknown 04/25/2021 10:40 EDT 04/25/2021 23:37 EDT Tissue specimen (specimen) STOMACH STRUCTURE / Unknown 04/25/2021 10:40 EDT 04/25/2021 23:37 EDT Tissue specimen (specimen) STOMACH STRUCTURE / Unknown 04/25/2021 10:40 EDT 04/25/2021 23:37 EDT us Sohan Wyatt MD PATHOLOGY ORDERABLES Final Result [facility] [address] [place] [address] documented in this encounter Visit Diagnoses Diagnosis Diarrhea, unspecified Abnormal levels of other serum enzymes 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
--- OUTSIDE RECORDS SUMMARY | 2024-08-14 09:41 | XMS_ITS | Encounter Summary ---
Author Organization [facility] Address [address] [place] [address] Care Team Providers Care Banbury Operator Name Role Phone Unknown, Provider Primary Care Provider Unava ilable Encounter Details Date Type Department Care Team (Late st Contact Info) Description 06/15/2019 Lab Requisition [facility] Pathology & Laboratory Medicine - [address] [address] Unknown, Provider, Encounter for other general examination Social History [...] Date/Time Associated Diagnosis Comments SURGICAL PATHOLOGY Today 06/12/2019 13 :25 EST documented in this encounter Results * SURGICAL PATHOLOGY (06/12/2019 13:25 EST) Final Diagnosis A. DUODENUM, BIOPSY: - Duodenal mucosa with no specific pathologic features. B. STOMACH, SITE NOT SPECIFIED, BIOPSY: - Gastric transitional type mucosa with no specific pathologic features. C. COLON, 65CM, TRANSVERSE, BIOPSY: - Mild to moderately active colitis with architectural disarray. - See comment. D. PERIAPPENDICEAL, POLYPS, BIOPSY: - Polypoid colonic mucosa with no specific morphologic features. E. TERMINAL ILEUM, BIOPSY: - Superficial fragments of small bowel mucosa with no specific pathologic features. F. COLON, ASCENDING, POLYP, BIOPSY: - Fragments of tubular adenoma. G. COLON, TRANSVERSE, POLYP, POLYPECTOMY: - Tubular adenoma. - Lateral (mucosal) margins negative for dysplasia. H. COLON, RANDOM, BIOPSY: - Fragments of colonic mucosa with no specific pathologic features. I. COLON, TRANSVERSE, POLYP #3, BIOPSY: - No tissue received. J. COLON, SIGMOID, POLYP, BIOPSY: - Tubular adenoma. 06/20/2019 11:52 [facility] at 1152 Diagnosis Comment The colon at 65cm (Specimen C) shows mild to moderately active colitis with some architectural disarray. The biopsy specimen submitted as random colon (Specimen H) is normal with no histologic features of chronicity. 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 The biopsies are negative for granulomas. 06/20/2019 11:52 [facility] Clinical History Cyclic vomiting, change in bowel habits 06/20/2019 11:52 [facility] Attestation By the signature below, the attending physician certifies that they have personally conducted a gross and/or microscopic examination of the described specimens and rendered or confirmed the above diagnosis. 06/20/2019 11:52 [facility] at 1152 Gross Description Note to pathologist: Alias for this patient is Sultana Hi. Verified by Osiel Johnson on 06/17/2019 with registration. A. Received in formalin labelled with proper patient identification (initials M, A) and A. Duodenal mucosal biopsies are 3 norwood-brown tissues (0.2 x 0.2 x 0.1 cm to 0.4 x 0.3 x 0.2 cm). Submitted in toto in A1. B. Received in formalin labelled with proper patient identification (initials M, A) and B. Stomach mucosal biopsies is a norwood tissue (0.4 x 0.2 x 0.1 cm). Although it states biopsies, only 1 tissue is present. Submitted in toto in B1. C. Received in formalin labelled with proper patient identification (initials M, A) and C. 65 cm transverse colon biopsy is a norwood-brown tissue (0.6 x 0.2 x 0.1 cm). Submitted in toto in C1. D. Received in formalin labelled with proper patient identification (initials M, A) and D. Leonarda-appendiceal polyps are 2 norwood-brown tissues (0.3 x 0.1 x 0.1 cm and 0.7 x 0.2 x 0.1 cm). Submitted in toto in D1. E. Received in formalin labelled with proper patient identification (initials M, A) and E. Terminal ileum biopsy is a norwood tissue (0.4 x 0.3 x 0.1 cm). Submitted in toto in E1. F. Received in formalin labelled with proper patient identification (initials M, A) and F. Ascending colon polyp are 2 norwood-brown tissue fragments (0.3 x 0.2 x 0.2 cm and 0.4 x 0.4 x 0.2 cm). Submitted in toto in F1. G. Received in formalin labelled with proper patient identification (initials M, A) and G. Transverse colon polyp is a norwood-brown polyp (0.5 x 0.4 x 0.3 cm). The tissue is bisected and entirely submitted in G1. H. Received in formalin labelled with proper patient identification (initials M, A) and H. Random colon biopsies are 3 norwood tissues (0.2 x 0.2 x 0.1 cm to 0.3 x 0.2 x 0.1 cm). Submitted in toto in H1. I. Received in formalin labelled with proper patient identification (initials M, A) and I. Transverse colon polyp # 3 is approximately 10 cc of clear formalin in which no tissue is identified. No cassette is submitted. I spoke with Carlos Almonte, Active Directory Specialist, at Dr. Kingston Lepe's office at [facility] to inform them. J. Received in formalin labelled with proper patient identification (initials M, A) and J. Sigmoid colon polyp is a norwood-brown tissue (0.4 x 0.3 x 0.2 cm). Submitted in toto in J1. Alida Greenberg 06/17/2019 10:00 06/20/2019 11:52 EST [facility] Scanned Images 06/20/2019 11:52 EST [facility] Tissue ENTIRE SIGMOID COLON / Unknown 06/12/2019 13:25 EST 06/17/2019 8:02 EST Tissue specimen (specimen) STOMACH STRUCTURE / Unknown 06/12/2019 13:25 EST 06/17/2019 8:02 EST Tissue specimen (specimen) TRANSVERSE COLON STRUCTURE / Unknown 06/12/2019 13:25 EST 06/17/2019 8:02 EST Tissue specimen (specimen) COLON STRUCTURE / Unknown 06/12/2019 13:25 EST 06/17/2019 8:02 EST Tissue specimen (specimen) STRUCTURE OF SMALL INTESTINE / Unknown 06/12/2019 13:25 EST 06/17/2019 8:02 EST Tissue specimen (specimen) ASCENDING COLON STRUCTURE / Unknown 06/12/2019 13:25 EST 06/17/2019 8:02 EST Tissue specimen (specimen) TRANSVERSE COLON STRUCTURE / Unknown 06/12/2019 13:25 EST 06/17/2019 8:02 EST Tissue specimen (specimen) COLON STRUCTURE / Unknown 06/12/2019 13:25 EST 06/17/2019 8:02 EST Tissue specimen (specimen) TRANSVERSE COLON STRUCTURE / Unknown 06/12/2019 13:25 EST 06/17/2019 8:02 EST Tissue specimen (specimen) SIGMOID COLON STRUCTURE / Unknown 06/12/2019 13:25 EST 06/17/2019 8:02 EST us Provider Unknown PATHOLOGY ORDERABLES Final R esult [facility] [address] [place] [address] documented in this encounter Visit Diagnoses Diagnosis Encounter for other general examination documented in this encounter Care Teams Banbury Operator Relationship Specialty Start Date End Date Unknown, Provider, PCP - General 12/29/08 documented as of this encounter
--- OUTSIDE RECORDS SUMMARY | 2024-08-14 09:41 | XMS_ITS | Encounter Summary ---
Author Organization [facility] Address [facility] [place] [address] Care Team Providers Care Field Care Advocate Name Role Phone Khushboo Arreola Primary Care Provider [phone] Reason for Referral * Diagnostic Test (Routine) [...] Pelvis w Contrast (Generic) Carina Negron APRN [facility] [place] [address] [facility] [place] [address] Referral ID Status Reason Start Date Expiration Date V isits Requested Visits Authorized [id number] Closed Specialty Service Requested 08/09/2022 02/07/2024 1 [...] Pelvis w Contrast (Generic) Carina Negron APRN [facility] [place] [address] [facility] [place] [address] Referral ID Status Reason Start Date Expiration Date V isits Requested Visits Authorized [id number] Closed Specialty Service Requested 08/09/2022 02/07/2024 1 1 Encounter Details Date Type Department Care Team (Latest Contact Info) Description 04/30/2023 12:12 PM EDT - 04/30/2023 11:59 PM EDT Hospital [place] [address] Carina Negron [facility] [place] [address] Diarrhea, unspecified type; Chronic nausea; [...] Name Priority Date/Time Associated Diagnosis Comments CT ANGIOGRAM ABDOMEN AND PELVIS W CONTRAST Routine 04/30/2023 12:28 PM EDT Diarrhea, unspecified type Chronic nausea Cyclic vomiting syndrome Tenesmus Constipation, unspecified constipation type Irritable bowel syndrome with diarrhea Bloating BRBPR (bright red blood per rectum) Colon polyposis Smoking Nausea and vomiting, unspecified vomiting type Early satiety documented in this encounter Results * CT Angiogram Abdomen & Pelvis w [...] who have questions please contact the health health care coordinator that requested your imaging first. ? Electronically signed by: Jefferson Lino DO, [facility] ([phone]), at 04/30/2023 3:26 PM Narrative 04/30/2023 3:26 [...] similar prior examination provided for comparison. FINDINGS: Foundation Drill Operator Helper Images: Noncontributory. VASCULAR FINDINGS Abdominal aorta: No [...] multilevel facet arthropathy. Procedure Note Jefferson Lino, - 04/30/2023 EXAMINATION: CT ANGIOGRAM ABDOMEN AND [...] no similar prior examination provided forcomparison. FINDINGS: Foundation Drill Operator Helper Images: Noncontributory. VASCULAR FINDINGS Abdominal aorta: No [...] patients who have questions please contactthe health health care coordinator that requested your imaging first. Carina Negron TIPPLE TENDER IMG CT ORDERABLES documented in this encounter [...] MAR Action Action Date Dose Rate Site iohexoL (Omnipaque) (350 mg/mL) solution 0-200 mL 0-200 mL, Intravenous, ONCE PRN, 1 dose, Starting on Sun04/30/23 at 1233, Until Sun04/30/23 at 1233, Per Protocol, Warning Vesicant/Irritant Medication , Radiology Contrast, Routine Given 04/30/2023 12:33 PM EDT 60 mLs documented in this encounter Care Teams Field Care Advocate Relationship Specialty Start Date End Date Khushboo Arreola PA [address] [place] [id number] PCP - General Family Medicine 03/20/22 documented as of this encounter
[2024-08-14 19:33] LABS: Bacteria Rare HPF (Negative); C & S Indicated? C&S Done As Ordered; Casts Negative LPF (Negative); Crystals Moderate Amorphous HPF (Negative); Epithelial Cells Rare HPF (Negative); Mucus Negative (Negative); RBC 0-2 HPF (0-2); WBC 0-2 HPF (0-5)
== END 2024-08-14 09:39 | disposition home or self-care (01) ==
LOC: NCHCN 09:38
PROVIDERS: PCP Physician Assistant Medical; Visit Provider Physician Assistant
DX: R35.0 Frequency of micturition (principal); R82.89 Other abnormal findings on cytological and histological examination of urine
CPT/HCPCS: 81015; 87086